=== PATIENT | male | born 1960 | race Caucasian/White ===

== ENCOUNTER 2024-03-18 18:02 | Inpatient (IN) | payer OTHER, SELFPAY ==
[2024-03-18] VITALS (9 sets, daily range): BP systolic 74–144; BP diastolic 44–70; BMI 39.0; BMI 37.7
[2024-03-18 16:33] LABS: Glucose - Point of Care 249 mg/dl (70-99)
[2024-03-18 17:06] LABS: % Basophils 0.2 % (0-2); % Eosinophils 1.1 % (0-6); % Immature Granulocytes 0.4 % (0-0.5); % Lymphocytes 1.4 % (20.5-51.1); % Monocytes 4.3 % (1.7-9.3); % Neutrophils 92.6 % (42.2-75.2); Absolute Eosinophils 0.1 10^3/uL (0-0.7); Absolute Lymphocytes 0.1 10^3/uL (1.2-3.4); Absolute Monocytes 0.4 10^3/uL (0.1-0.6); Absolute Neutrophils 9.1 10^3/uL (1.4-6.5); Hematocrit 47.6 % (39.0-52.0); Hemoglobin 16.1 g/dL (13.0-18.0); Mean Corp Hgb Conc. 33.8 g/dL (33.0-37.0); Mean Corpuscular Hgb 35.2 pg (27.0-31.0); Mean Corpuscular Volume 103.9 fL (80.0-94.0); Mean Platelet Volume 10.4 fL (7.4-10.4); Nucleated Red Blood Cells % 0 % (-); Platelet Count 181 10^3/uL (130-400); Red Blood Cell Count 4.58 10^6/uL (4.70-6.10); White Blood Cell Count 9.8 10^3/uL (4.8-10.8)
[2024-03-18] MEDS: ZOFRAN 4 MG IV (17:13)
[2024-03-18] MEDS: PROTONIX IV 40 MG IV (17:13)
--- NOTE | 2024-03-18 17:13 | ED.GENMED ---
History of Present Illness
General
Chief Complaint: Weakness
Source: patient and ambulance crew
Exam Limitations: none
Time Seen by Provider: 03/18/24 16:45
Nursing documentation reviewed up to this point in time: agreed with
History of Present Illness
History of Present Illness:
65-year-old diabetic from home nausea vomiting diarrhea since this morning greater than 10 episodes feels weak, called 911 found to be hypotensive given Zofran and IV fluids Accu-Chek in the mid 200 range, no headache, does feel dizzy, has mild
diffuse abdominal tenderness, no blood in stool or vomit,
Phy Exam
Physical Exam
Physical Exam:
Physical Exam
General: 63 male looks uncomfortable but not
Neck: Dry lips
Heart: s1/s2 regular rate and rhythm, no murmur. equal radial pulses.
Lungs: no acute respiratory distress. clear bilaterally
Abdomen: Mild diffuse tenderness no guarding or
Neuro: alert and oriented. no focal neurological deficits
Skin: no rash
Psychiatric: cooperative
Extremities: no edema.
Course
Orders/Labs/Results
Orders:
Orders
03/18/24 16:27
EKG [Electrocardiogram (*1)] Urgent
Reason for Study: Tachycardia
EKG- Treatment ONCE
03/18/24 16:40
CMP [Comprehensive Metabolic Panel] Urgent
Complete Blood Count/With Diff Urgent
03/18/24 16:49
Ondansetron Injectable [Zofran] 4 mg IV NOW STA
Pantoprazole [Protonix IV] 40 mg IV NOW STA
CR Chest Portable - 1 View Urgent
Comment:
Reason For Exam: vomiting
Reason Study Needs to be Portable: Unable to Transport
03/18/24 16:51
Type+Screen Urgent
03/18/24 17:07
Norovirus by PCR Urgent
ANITRA Source: Feces/Stool
Specimen Description:
Abnormal Lab Results
03/18/24 03/18/24
16:32 16:40
RBC 4.58 L 10^6/uL
(4.70-6.10)
MCV 103.9 H fL
(80.0-94.0)
MCH 35.2 H pg
(27.0-31.0)
Absolute Neuts (auto) 9.1 H 10^3/uL
(1.4-6.5)
Absolute Lymphs (auto) 0.1 L 10^3/uL
(1.2-3.4)
Neutrophils % 92.6 H %
(42.2-75.2)
Lymphocytes % 1.4 L %
(20.5-51.1)
BUN 24 H mg/dl
(9-20)
Glucose 245 H mg/dl
(70-99)
Calcium 7.4 L mg/dl
(8.4-10.2)
Total Protein 5.6 L g/dl
(6.3-8.2)
Albumin 3.2 L g/dl
(3.5-5.0)
POC Glucose 249 H mg/dl
(70-99)
03/18/24 16:40
03/18/24 16:40
Vital Signs
Initial and Last Documented VS:
Initial Vital Signs
Temp Pulse Resp BP
98.7 F 116 11 110/66
03/18/24 16:27 03/18/24 16:27 03/18/24 16:27 03/18/24 16:27
Last Documented Vital Signs
Temp Pulse Resp BP
98.7 F 116 11 110/66
03/18/24 16:27 03/18/24 16:27 03/18/24 16:27 03/18/24 16:27
MDM/Problems Addressed
Differential Diagnosis Includes:
Colitis diverticulitis DKA norovirus dehydration
MDM/Problems Addressed:
Nausea vomiting diarrhea
Chronic conditions affecting care: DM
Acute Exacerbation and/or Progression of Chronic Illness: DM
*EKG
Interpreted by ED Provider?: Yes
Interpretation: abnormal
Comparison EKG: no comparison EKG present
Rate: tachycardiac
Rhythm: sinus
Ischemia: non-specific ST changes
*Manager Account Management Interpretation
Rate: tachycardiac
Interpretation: abnormal
Heart Rate: 117
Rhythm: sinus
*Critical Care Note
Total Time (30-74mins, 75-104mins- exclusive of procedures): Not Applicable
ED Attending Note
-
Portions of this chart may have been created with voice recognition software.� Occasional wrong word or��sound alike� substitutions may have occurred due to the inherent limitations of voice recognition software.
Discharge Plan
Departure
Patient with high blood pressure during this ER visit?: No
Referrals:
Harpreet Kelsey MD [Family Provider] -
Interventions
Interventions:
*Risk Screen - Suicide Last Done: 03/18/24 16:27
*General Assessment Last Done: 03/18/24 16:27
*Neglect/Abuse Screening Last Done: 03/18/24 16:27
Discharge Date and Time
Print Language: IVORIAN
[2024-03-18 17:21] LABS: ALT (SGPT) 21 U/L (0-50); AST (SGOT) 20 U/L (17-59); Albumin 3.2 g/dl (3.5-5.0); Alkaline Phosphatase 63 U/L (38-126); Blood Urea Nitrogen 24 mg/dl (9-20); Calcium 7.4 mg/dl (8.4-10.2); Carbon Dioxide 23 mmol/L (22-30); Chloride 107 mmol/L (98-107); Estimated Creatinine Clearance 112 ml/min; Glucose 245 mg/dl (70-99); Potassium 4.1 mmol/L (3.5-5.1); Sodium 138 mmol/L (135-145); Total Bilirubin 1.1 mg/dl (0.2-1.3); Total Protein 5.6 g/dl (6.3-8.2); eGFR > 60.00
--- NOTE | 2024-03-18 17:46 | HPS.HSE ---
Family Physician
-
Family Physician: Harpreet Kelsey
Chief Complaint
-
acute N/V/D
History of Present Illness
HPI
65M diabetic from home seen at ER: 911 called and [facility]
- acute onset of nausea vomiting diarrhea since this morning greater than 10 episodes feels weak
- called 911 found to be hypotensive given Zofran and IV fluids
- Accu-Chek in the mid 200 range
ROS:
- feel dizzy
- mild diffuse abdominal tenderness
- no blood in stool or vomit,
Medical History
Past Medical History
Past Medical History: Reports NIDDM
Past Surgical History: Reports None
Social History
Tobacco: Non-smoker
Alcohol: None
Drug: None
Family History
Family History: Not pertinent
Allergies / Home Medications
Allergies reflects when Allergies were last updated in [facility].
Home Medications with original date entered in [facility]
Allergy/Medication List:
Allergies
Allergy/AdvReac Type Severity Reaction Status Date / Time
nut - unspecified Allergy Severe Anaphylaxis Verified 03/18/24 16:38
dapagliflozin [From [facility]] Allergy Unknown Verified 03/18/24 16:38
Penicillins Allergy Unknown Verified 03/18/24 16:38
If medication reconciliation has not been performed, why?: Medication List N/A
Review of Systems
-
Constitutional: Reports No Symptoms
EENT: Reports No Symptoms
Respiratory: Reports No Symptoms
Cardiac: Reports No Symptoms
Abdomen/GI: Reports Abdominal Pain, Nausea, Vomiting and Diarrhea
: Reports No Symptoms
Musculoskeletal: Reports No Symptoms
Skin: Reports No Symptoms
Neurological: Reports No Symptoms
Endocrine: Reports No Symptoms
Hematologic/Lymphatic: Reports No Symptoms
Psych: Reports No Symptoms
Physical Exam
Vital Signs
Vital Signs
Temp Pulse Resp BP
98.7 F 116 11 110/66
03/18/24 16:27 03/18/24 16:27 03/18/24 16:27 03/18/24 16:27
Physical Exam
General: Well Nourished, Conversant, Appears in Distress and Obese (morbid obesity )
HEENT: No Moist mucous membranes (dry OM )
Respiratory: Clear
Cardiac: S1/S2 and Regular Rhythm
Breast: Deferred by me
GI: Soft, Non Tender, Non Distended and Normal Bowel Sounds
Genito-urinary: Deferred by me
Musculoskeletal: No Edema
Skin: Warm
Neuro: AO x 3
Psych: Calm; No Agitated
Laboratory Results
-
03/18/24 16:40
03/18/24 16:40
Laboratory Results
Total Bilirubin 1.1 mg/dl (0.2-1.3) 03/18/24 16:40
AST 20 U/L (17-59) 03/18/24 16:40
ALT 21 U/L (0-50) 03/18/24 16:40
Alkaline Phosphatase 63 U/L (38-126) 03/18/24 16:40
Data Reviewed
-
Lab Data: Labs Reviewed by me
Impression/Plan
-
Vital Signs
Temp Pulse Resp BP
98.7 F 116 11 110/66
03/18/24 16:27 03/18/24 16:27 03/18/24 16:27 03/18/24 16:27
Data
Laboratory Tests
03/18/24 03/18/24
16:32 16:40
WBC 9.8
Hgb 16.1
Plt Count 181
BUN 24 H
Creatinine 1.0
Glucose 245 H
Calcium 7.4 L
Albumin 3.2 L
POC Glucose 249 H
EKG report
SINUS TACHYCARDIA
INFERIOR INFARCT , AGE UNDETERMINED
ABNORMAL ECG
WHEN COMPARED WITH ECG OF 26-DEC-1993 07:42,
VENT. RATE HAS INCREASED BY 48 BPM
INFERIOR INFARCT IS NOW PRESENT
NO PRIOR hospitalist admission:
ASSESSMENT & PLAN
Pending Rx reconciliation
Acute GE with hypotension DDX: Noro virus
Associated with moderately hypovolemia due to GI loss
- supportive care with IVF , anti emetics
- check Noro virus stool PCR
- fall precaution
Inadequate hyperglycemic control
HX DM
check BHB
- Pending Rx reconciliation
- Hold any OHG agents
- add ISS low
Hypocalcemia due to GI loss
Corrected Ca 8 for Alb 3.2
- IV Calcium Gluconate 1 gm
- f/u Ca in AM
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
DVT Px: SCD
Code: Full code
IP TLM
[2024-03-18] MEDS: CALCIUM GLUCONATE 1000 MG IV (18:22)
[2024-03-18 18:49] LABS: B-Hydroxybutyrate 0.64 mmol/L (0.02-0.27)
[2024-03-18] MEDS: NSS 1000 IV (21:20)
[2024-03-18 22:21] LABS: Glucose - Point of Care 291 mg/dl (70-99)
[2024-03-18] MEDS: NSS 500 IV (23:04)
[2024-03-19] VITALS (10 sets, daily range): BP systolic 86–125; BP diastolic 52–74; PULSE 79–105
--- NOTE | 2024-03-19 00:55 | PTCARENOTE ---
Addendum entered by Negrita Tompkins RN 03/19/24 05:03:
bladder scan for 78ml
Addendum entered by Negrita Tompkins RN 03/19/24 04:15:
Pt received another NS 250ml Bolus and Midodrine for BP 86/52. Rechecked BP 79/47. MARKETING RESEARCH ANALYST made aware
Addendum entered by Negrita Tompkins RN 03/19/24 00:59:
BP 75/47 HR 109. MARKETING RESEARCH ANALYST made aware. Bolus NS 500ml given. BP improved to 91/54
Original Note:
Pt admitted to room 2131. Pt AAOx3, weak and drowsy. Was able to ambulate from stretcher to the bed. Oriented to room, call horta in reach.
--- NOTE | 2024-03-19 01:17 | W.PN.UPDATE ---
Update Note
Progress Note Update
RN notified [employer], BP 75/47. Map 56. He's on NS @100. Received 1L in ER. Will order 500 CC NS bolus
one hour later BP 91/54 MAP 66.
BP 86/52 map 63, Will order Midodrine 5mg PO x1, IV bolus 250 NS to be given now
Patient is sleepy but easily arousable.
88/55 MAP 66 HR 95
BUN 38 Creat 2.1
bladder scan 70CC per RN. Patient seen and evaluated. stated voided limited amount about 100 CC
reports mild Shortness of breath, denies any chest pain, lungs clear to auscultate; RRR,
Denies any bladder pressure or discomfort or urge to urinate
will order Renal/Bladder US, UA, Urine NA, Urine Creat, May consider outside collector
NSS IV bolus 500 CC now.
[2024-03-19] MEDS: NSS 250 IV (01:31)
[2024-03-19] MEDS: ProAmatine 5 MG PO (01:32)
[2024-03-19] MEDS: NSS 1000 IV ×3 (01:51→20:57)
[2024-03-19 05:47] LABS: Hematocrit 42.9 % (39.0-52.0); Hemoglobin 14.6 g/dL (13.0-18.0); Mean Corpuscular Hgb 35.4 pg (27.0-31.0); Mean Corpuscular Volume 103.9 fL (80.0-94.0); Mean Platelet Volume 10.9 fL (7.4-10.4); Platelet Count 199 10^3/uL (130-400); Red Blood Cell Count 4.13 10^6/uL (4.70-6.10); Red Cell Dist. Width 13.3 % (11.5-14.5); White Blood Cell Count 9.1 10^3/uL (4.8-10.8)
[2024-03-19 06:17] LABS: ALT (SGPT) 22 U/L (0-50); AST (SGOT) 25 U/L (17-59); Albumin 3.1 g/dl (3.5-5.0); Alkaline Phosphatase 49 U/L (38-126); Blood Urea Nitrogen 38 mg/dl (9-20); Calcium 7.8 mg/dl (8.4-10.2); Carbon Dioxide 23 mmol/L (22-30); Chloride 105 mmol/L (98-107); Estimated Creatinine Clearance 52 ml/min; Glucose 208 mg/dl (70-99); Potassium 4.8 mmol/L (3.5-5.1); Sodium 136 mmol/L (135-145); Total Bilirubin 0.6 mg/dl (0.2-1.3); Total Protein 5.6 g/dl (6.3-8.2); eGFR 34.72
[2024-03-19 07:11] LABS: Glucose - Point of Care 168 mg/dl (70-99)
[2024-03-19] MEDS: NSS 500 IV (08:11)
[2024-03-19] MEDS: NOVOLOG FLEXPEN-LOW RESISTANCE 1 UNITS SC ×2 (08:19→17:18)
[2024-03-19 09:30] LABS: Urine Sodium 75 mmol/L (30-90)
[2024-03-19 10:35] LABS: Glycohemoglobin (HgbA1c) 8.3 % (4.0-5.6)
--- NOTE | 2024-03-19 11:12 | W.PN.HOSP.TC ---
Today's Communication/Plan
-
Assessment / Plan
Assessment / Plan
Acute gastroenteritis
-Likely viral. Stool cultures for C. difficile and norovirus obtained
-Supportive care for now IV fluids antiemetics antipyretics
EMILY
IVF
Avoid nephrotoxins and hypotension
Monitor UOP
Bladder scan
RBUS
Urine studies )Cory/Ucr/Upro
Avoid nephrotoxins and hypotension
Type 2 diabetes on metformin glimepiride and Trulicity
-Accu-Chek sliding scale goal blood glucose 1 40-1 80 carb controlled diet
-Hold metformin while inpatient
PE history
Continue Eliquis BID
Hypertension
Continue losartan
Psoriatic arthritis
Continue methotrexate 25 mg every Wednesday
Continue prednisone 5 mg twice a day
Macrocytosis
Outpatient b12/folate,
-On methotrexate and likely related
-On folate
Hyperlipidemia
Continue simvastatin
Anticipated Discharge: Today
Subjective/Interval History
-
Date of Service: March 19, 2024
seen and examined
no new complaints
no aucte ovenright eventgs
on the way down to ultrasound
per nurse poor uop
he does not have an appetite
on eliquis for pe in 2008, no further vte events in the past, still on eliquis
Objective Data
-
Labs:
Laboratory Results
03/19/24
04:44
WBC 9.1
Hgb 14.6
Hct 42.9
Plt Count 199
Sodium 136
Potassium 4.8
Chloride 105
Carbon Dioxide 23
BUN 38 H
Creatinine 2.1 H
Glucose 208 H
Calcium 7.8 L
Total Bilirubin 0.6
AST 25
ALT 22
Alkaline Phosphatase 49
Vital Signs:
Vital Signs
Temp Pulse Resp BP Pulse Ox
97.5 F 88 17 95/58 96
03/19/24 07:47 03/19/24 07:47 03/19/24 07:47 03/19/24 07:47 03/19/24 07:47
I&O
03/18/24 03/19/24 03/20/24
06:59 06:59 06:59
Intake Total 2780 / 2780
Output Total 110 / 110
Balance 2670 / 2670
Physical Exam
-
General: No Apparent Distress and Obese
HEENT: Normocephalic and Atraumatic
Respiratory: Clear to Auscultation
Cardiac: Regular Rhythm and S1/S2
GI: Soft, Nontender, Normal Bowel Sounds and Distended
Skin: Warm and Other (b/l chronic venostasis changes)
Neuro: Awake, Alert, Oriented and AO x 3
Psych: Calm
[2024-03-19 11:24] LABS: Glucose - Point of Care 136 mg/dl (70-99)
[2024-03-19] MEDS: NOVOLOG FLEXPEN-LOW RESISTANCE SC (11:29)
[2024-03-19] MEDS: TYLENOL 1000 MG PO ×2 (12:17→20:59)
--- NOTE | 2024-03-19 12:38 | CM ---
Patient seen at bedside. Patient states that he rents room on the second floor and he has no DME. Patient PCP is Dr. Kelsey and he uses the [facility] in [facility]. Patient stated that he is independent and does not anticipate any needs at
discharge. CM will provide information re living will/POA at patient request. Patient sleepy but indicated that he was feeling better. CM will continue to follow for discharge planning needs.
Plan; home with no needs.
[2024-03-19 14:32] LABS: Urine Albumin Trace (Neg - Trace); Urine Bilirubin 1+ (Negative); Urine Character Clear (Clear); Urine Color Yellow; Urine Glucose 1+ (Negative); Urine Ketone Negative (Negative); Urine Leukocyte Negative (Negative); Urine Nitrite Negative (Negative); Urine Occult Blood Negative (Negative); Urine Specific Gravity 1.025 (<1.030); Urine Urobilinogen Negative (Neg - 1+)
[2024-03-19 16:20] LABS: Glucose - Point of Care 156 mg/dl (70-99)
[2024-03-19] MEDS: FOLVITE 1 MG PO (17:18)
[2024-03-19] MEDS: DELTASONE 5 MG PO (20:57)
[2024-03-19] MEDS: ELIQUIS 5 MG PO (20:57)
[2024-03-19 21:48] LABS: Glucose - Point of Care 95 mg/dl (70-99)
[2024-03-20] VITALS (7 sets, daily range): BP systolic 95–129; BP diastolic 66–76; PULSE 76–95; BMI 38.7
[2024-03-20] MEDS: TYLENOL 1000 MG PO ×3 (03:30→20:00)
[2024-03-20] MEDS: NSS 1000 IV ×3 (06:03→21:27)
[2024-03-20 07:34] LABS: Glucose - Point of Care 143 mg/dl (70-99)
[2024-03-20] MEDS: NOVOLOG FLEXPEN-LOW RESISTANCE SC ×2 (07:43→16:40)
[2024-03-20] MEDS: DELTASONE 5 MG PO ×2 (08:02→20:00)
[2024-03-20] MEDS: ELIQUIS 5 MG PO ×2 (08:02→20:00)
[2024-03-20] MEDS: VITAMIN D3 (cholecalciferol) 25 MCG PO (08:02)
[2024-03-20 08:49] LABS: Hematocrit 40.8 % (39.0-52.0); Hemoglobin 13.7 g/dL (13.0-18.0); Mean Corp Hgb Conc. 33.6 g/dL (33.0-37.0); Mean Corpuscular Hgb 35.9 pg (27.0-31.0); Mean Corpuscular Volume 106.8 fL (80.0-94.0); Mean Platelet Volume 10.6 fL (7.4-10.4); Platelet Count 144 10^3/uL (130-400); Red Blood Cell Count 3.82 10^6/uL (4.70-6.10); Red Cell Dist. Width 13.2 % (11.5-14.5); White Blood Cell Count 4.3 10^3/uL (4.8-10.8)
[2024-03-20 09:37] LABS: Urine Protein 15 mg/dl (0-12); Urine Sodium 129 mmol/L (30-90)
[2024-03-20 10:21] LABS: Blood Urea Nitrogen 21 mg/dl (9-20); Calcium 7.8 mg/dl (8.4-10.2); Carbon Dioxide 24 mmol/L (22-30); Chloride 108 mmol/L (98-107); Estimated Creatinine Clearance 123 ml/min; Glucose 112 mg/dl (70-99); Potassium 4.6 mmol/L (3.5-5.1); Sodium 136 mmol/L (135-145); eGFR > 60.00
--- NOTE | 2024-03-20 10:45 | CM ---
Reviewed the chart notes. Per nursing, patient is weak and using a walker with ambulation at supervision level. CM continues to be available to patient/family and is monitoring medical plan for needs at discharge.
Plan: Discharge to home when medically stable. No needs anticipated at this time.
[2024-03-20 11:36] LABS: Glucose - Point of Care 162 mg/dl (70-99)
[2024-03-20] MEDS: NOVOLOG FLEXPEN-LOW RESISTANCE 1 UNITS SC (12:28)
--- NOTE | 2024-03-20 12:45 | W.PN.HOSP.TC ---
Today's Communication/Plan
-
Patient to be evaluated by PT/OT today. If he can tolerate regular diet and ambulate without issue, he should be safe to be discharged
Assessment / Plan
Assessment / Plan
Assessment:
65y M with a pmhx of NIDDM came to the ED on 03/18/2024 due to acute onset of nausea, vomiting and diarrhea. Patient was found to be hypotensive and given Zofran and fluids. Patient was found to be positive for Norovirus and started on supportive
care with IVF and anti-emetics. Patient's hyperglycemia has been controlled with insulin sliding scale as his oral agents were held. He is currently still feeling weak but his nausea, vomiting, and diarrhea have seemed to resolve for now.
Acute gastroenteritis
-Positive for Norovirus
-Positive for C.Diff antigen, not toxin
-Continue Supportive Care with IV fluids and Antiemetics as needed
-Changed to Regular diet to see if he can tolerate solid foods
-Orthostatic Vitals due to his dizziness
-113/68 while standing, 95/67 supine, 108/68 sitting-> Improved from before
EMILY
-Resolved (Creatinine 0.9)
-On IVF
-Urine Studies show Urine Sodium 129, Urine Creatinine 68
-FENA 5.7 %
-Urine studies )Cory/Ucr/Upro
-Avoid nephrotoxins and hypotension
Non Insulin Dependent Type 2 diabetes
-Management with Insulin sliding scale
-Resume home therapy with metformin, glimepiride and Trulicity upon discharge
PE history
Continue Eliquis BID
Hypertension
Continue losartan
Psoriatic arthritis
Continue methotrexate 25 mg every Wednesday
Continue prednisone 5 mg twice a day
Macrocytosis
Outpatient b12/folate,
-On methotrexate and likely related
-On folate
Hyperlipidemia
Continue simvastatin
Full Code
DVT Prophylaxis: Eliquis
Anticipated Discharge: Within 24 hours
Subjective/Interval History
-
Date of Service: March 20, 2024
Patient says that he has been feeling better but still feels some weakness. He says he has not had a bowel movement for a day but he does not feel nausea or vomiting. He wanted to try solid foods today as he thinks he might be able to handle them
today. He did complain of some constipation and feeling of fullness.
Objective Data
-
Labs:
Laboratory Results
03/20/24
07:35
WBC 4.3 L
Hgb 13.7
Hct 40.8
Plt Count 144 D
Sodium 136
Potassium 4.6
Chloride 108 H
Carbon Dioxide 24
BUN 21 H
Creatinine 0.9
Glucose 112 H
Calcium 7.8 L
Vital Signs:
Vital Signs
Temp Pulse Resp BP Pulse Ox
98 F 84 17 125/73 95
03/20/24 11:06 03/20/24 07:30 03/20/24 07:30 03/20/24 07:30 03/20/24 10:56
I&O
03/19/24 03/20/24 03/21/24
06:59 06:59 06:59
Intake Total 2780 / 2780 2800 / 2800
Output Total 110 / 110 2350 / 2350
Balance 2670 / 2670 450 / 450
Review of Systems
-
History Source: Patient
Constitutional: Reports Fatigue and Weakness; Denies Fever, Night Sweats or Chills
EENT: Reports No Symptoms Reported
Respiratory: Denies Cough, Hemoptysis, Trouble Breathing or Wheezing
Cardiac: Denies Chest Pain, Diaphoresis, Palpitations or Syncope
Abdomen/GI: Reports Constipated; Denies Abdominal Pain, Nausea or Vomiting
Genitourinary: Reports No Symptoms
Musculoskeletal: Reports No Symptoms
Skin: Reports No Symptoms
Neuro: Reports No Symptoms
Endocrine: Reports No Symptoms
Hematologic / Lymphatic: Reports No Symptoms
Allergy / Immunology: Reports No Symptoms
Physical Exam
-
General: Well Developed, Well Nourished, No Apparent Distress and Comfortable
HEENT: Normocephalic and Atraumatic
Respiratory: Clear to Auscultation and Non Labored Respirations
Cardiac: Regular Rhythm and S1/S2
GI: Soft, Nontender, Normal Bowel Sounds and Distended
Musculoskeletal: No Clubbing, No Cyanosis and No Edema
Skin: Warm
Neuro: Awake, Alert, Oriented, AO x 3 and No Motor Deficits
Psych: Calm
Data Reviewed
-
Labs: Labs Reviewed by me, Discussed with Physician and Discussed with Patient
[2024-03-20] MEDS: ZOFRAN 4 MG PO (14:25)
--- NOTE | 2024-03-20 15:16 | PTCARENOTE ---
Patient c/o nausea, bout of diarrhea after trying regular diet for lunch. MD made aware, PRN PO zofran ordered per MD and resident and administered by this RN. Patient c/o generalized weakness throughout shift, OOB to chair and bathroom with standby
assist and RW. Orthos negative. O2 sat stable on RA.
[2024-03-20 16:37] LABS: Glucose - Point of Care 146 mg/dl (70-99)
[2024-03-20] MEDS: FOLVITE 1 MG PO (17:02)
[2024-03-20 21:35] LABS: Glucose - Point of Care 140 mg/dl (70-99)
[2024-03-21] VITALS (7 sets, daily range): BP systolic 123–146; BP diastolic 71–89; PULSE 73–89; BMI 39.1
[2024-03-21] MEDS: TYLENOL 1000 MG PO ×2 (02:30→11:58)
[2024-03-21] MEDS: NSS 1000 IV (05:48)
--- NOTE | 2024-03-21 08:07 | PN.CDI ---
CDI
- -
CDI:
Physician Documentation Request
Admit Date: 03/18/24 18:02
Dear Doctor Onur,
Clinical Indicators:
Patient admitted with acute viral gastroenteritis from norovirus.
03/18Hypotensive on EMS arrival: 65/48
03/20 PN, 'EMILY...FENA 5.7 %'
Urine Sodium
03/20/24
08:11
Urine Sodium 129 H
Cr/GFR trend:
03/18/24 03/19/24 03/20/24
16:40 04:44 07:35
Creatinine 1.0 2.1 H 0.9
eGFR > 60.00 34.72 > 60.00
Please clarify which of the following accurately represents the patient's renal status:
EMILY with suspected ATN
Pre renal EMILY only
Other, please specify
Criteria for EMILY*
1 Increase in serum creatinine by > or = to 0.3 mg/dL (> or = to 26.5 micromol/L) within 48 hours, OR
2 Increase in serum creatinine to > or = to 1.5 times baseline, which is known or presumed to have occurred within 7 days, OR
3 Urine volume < 0.5 nL/kg/hour for six hours
Use of terms such as suspected, likely, concern for, or probable (associated with a specific diagnosis that is being evaluated, monitored, or treated as if it exists) are acceptable and can be coded in the inpatient setting, when documented at the
time of discharge.
Thank you,
Vivienne Junior RN BSN
CDI Specialist
available via tiger text
Please use your independent medical judgment in providing your response.
*Source: Kidney Disease: Improving Global Outcomes (KDIGO) 2012
[2024-03-21] MEDS: ELIQUIS 5 MG PO ×2 (08:10→20:38)
[2024-03-21] MEDS: VITAMIN D3 (cholecalciferol) 25 MCG PO (08:10)
[2024-03-21] MEDS: DELTASONE 5 MG PO ×2 (08:10→20:38)
[2024-03-21 08:16] LABS: Glucose - Point of Care 127 mg/dl (70-99)
--- NOTE | 2024-03-21 08:18 | PN.CDI ---
CDI
- -
CDI:
Physician Documentation Request
Admit Date: 03/18/24 18:02
Dear Doctor Onur,
Clinical Indicators:
Patient admitted with acute viral gastroenteritis from norovirus.
03/18 EMS report, 'unable to get reportable BP, patient states he feels dizzy, weak...during descent, patient became increasingly pale...BP remains low...pressure bagging fluids into patient'; Initial recorded BP: 65/48 MAP 53
03/19 H & P, 'Acute GE with hypotension...Associated with moderately hypovolemia due to GI loss'
NSS bolus x 2
03/18 Midodrine 5 mg po x 1.
BP trend:
03/18/24
22:47 03/18/24
23:26 03/19/24
01:10
Blood pressure 74/49 77/44 86/52
03/19/24
02:44 03/19/24
03:55 03/19/24
16:07
Blood pressure 87/56 86/55 87/59
Please clarify which of the following is the most likely etiology of the above symptoms and treatment rendered:
Hypovolemic shock
Hypotension only
Other
Use of terms such as suspected, likely, concern for, or probable (associated with a specific diagnosis that is being evaluated, monitored, or treated as if it exists) are acceptable and can be coded in the inpatient setting, when documented at the
time of discharge.
Thank you,
Vivienne Junior RN BSN
CDI Specialist
available via tiger text
Please use your independent medical judgment in providing your response.
[2024-03-21] MEDS: NOVOLOG FLEXPEN-LOW RESISTANCE SC ×2 (08:21→17:28)
[2024-03-21 09:17] LABS: Hematocrit 38.7 % (39.0-52.0); Hemoglobin 13.3 g/dL (13.0-18.0); Mean Corp Hgb Conc. 34.4 g/dL (33.0-37.0); Mean Corpuscular Hgb 35.5 pg (27.0-31.0); Mean Corpuscular Volume 103.2 fL (80.0-94.0); Mean Platelet Volume 10.1 fL (7.4-10.4); Platelet Count 142 10^3/uL (130-400); Red Blood Cell Count 3.75 10^6/uL (4.70-6.10); Red Cell Dist. Width 13.2 % (11.5-14.5); White Blood Cell Count 4.7 10^3/uL (4.8-10.8)
--- NOTE | 2024-03-21 09:42 | W.PN.HOSP.TC ---
Addendum entered and electronically signed by Wilfredo Davis DO 03/21/24 13:05:
CDI:
-Hypotension only. Did not require vasopressor course, responded to IV fluids
-Prerenal EMILY. Rapid improvement in creatinine not consistent with ATN. Received IV fluids, urine sodium likely affected by sodium chloride load to kidney
Original Note:
Today's Communication/Plan
-
Continue giving supportive therapy as he still feels weak. Continue management of sugars.
Assessment / Plan
Assessment / Plan
Assessment:
65y M with a pmhx of NIDDM came to the ED on 03/18/2024 due to acute onset of nausea, vomiting and diarrhea. Patient was found to be hypotensive and given Zofran and fluids. Patient was found to be positive for Norovirus and started on supportive
care with IVF and anti-emetics. Patient's hyperglycemia has been controlled with insulin sliding scale as his oral agents were held. He is currently still feeling weak but his nausea, vomiting, and diarrhea have seemed to resolve for now.
Acute gastroenteritis
-Patient was hypotensive upon admission which was most probably secondary to viral gastroenteritis related diarrhea
-Positive for Norovirus
-Positive for C.Diff antigen, not toxin
-Continue Supportive Care with IV fluids and Antiemetics as needed
-Changed to Regular diet to see if he can tolerate solid food
-Orthostatic Vitals due to his dizziness
-113/68 while standing, 95/67 supine, 108/68 sitting-> Improved from before
-IVF discontinued as patient can tolerate PO fluids
-Continue supportive therapy
#EMILY with suspected ATN
-Resolved (Creatinine 0.9)
-On IVF
-Urine Studies show Urine Sodium 129, Urine Creatinine 68
-FENA 5.7 %
-Urine studies )Cory/Ucr/Upro
-Avoid nephrotoxins and hypotension
Non Insulin Dependent Type 2 diabetes
-Management with Insulin sliding scale
-Resume home therapy with metformin, glimepiride and Trulicity upon discharge
PE history
Continue Eliquis BID
Hypertension
Holding Losartan
Psoriatic arthritis
Continue methotrexate 25 mg every Wednesday
Continue prednisone 5 mg twice a day
Macrocytosis
Outpatient b12/folate,
-On methotrexate and likely related
-On folate
Hyperlipidemia
Continue simvastatin
Full Code
DVT Prophylaxis: Eliquis
Anticipated Discharge: Within 24 hours
Subjective/Interval History
-
Date of Service: March 21, 2024
Patient says that he still feels weak and has some increased pressure in his abdomen. He has been able to tolerate a regular diet without having any nausea or vomiting.
Objective Data
-
Labs:
Laboratory Results
03/21/24
09:00
WBC 4.7 L
Hgb 13.3
Hct 38.7 L
Plt Count 142
Sodium Pending
Potassium Pending
Chloride Pending
Carbon Dioxide Pending
BUN Pending
Creatinine Pending
Glucose Pending
Calcium Pending
Vital Signs:
Vital Signs
Temp Pulse Resp BP Pulse Ox
98.1 F 75 18 133/85 93
03/21/24 07:10 03/21/24 07:10 03/21/24 07:10 03/21/24 07:10 03/21/24 09:28
I&O
03/20/24 03/21/24 03/22/24
06:59 06:59 06:59
Intake Total 2800 / 2800 5320 / 5320
Output Total 2350 / 2350 1300 / 1300
Balance 450 / 450 4020 / 4020
Review of Systems
-
History Source: Patient
Constitutional: Reports Fatigue and Weakness; Denies Fever or No Appetite
EENT: Reports No Symptoms Reported
Respiratory: Denies Cough or Trouble Breathing
Cardiac: Denies Chest Pain, Diaphoresis, Palpitations or Syncope
Abdomen/GI: Reports Abdominal Pain (pressure rather than sharp pain in lower right quadrant); Denies Nausea, Vomiting or Diarrhea
Genitourinary: Reports No Symptoms
Musculoskeletal: Reports No Symptoms
Skin: Reports No Symptoms
Neuro: Reports No Symptoms
Endocrine: Reports No Symptoms
Hematologic / Lymphatic: Reports No Symptoms
Allergy / Immunology: Reports No Symptoms
Psych: Reports Anxious
Physical Exam
-
General: Well Developed, Well Nourished, No Apparent Distress and Comfortable
HEENT: Normocephalic and Atraumatic
Respiratory: Clear to Auscultation and Non Labored Respirations
Cardiac: Regular Rhythm and S1/S2
GI: Soft, Normal Bowel Sounds, Tender (some discomfort lower right side upon palpation) and Distended
Musculoskeletal: No Clubbing, No Cyanosis and No Edema
Skin: Warm
Neuro: Awake, Alert, Oriented and AO x 3
Psych: Calm and Anxious
Data Reviewed
-
Labs: Labs Reviewed by me, Discussed with Physician, Discussed with Nurse and Discussed with Patient
[2024-03-21 10:25] LABS: Blood Urea Nitrogen 17 mg/dl (9-20); Calcium 8.6 mg/dl (8.4-10.2); Carbon Dioxide 25 mmol/L (22-30); Chloride 108 mmol/L (98-107); Estimated Creatinine Clearance > 125 ml/min; Glucose 149 mg/dl (70-99); Potassium 4.5 mmol/L (3.5-5.1); Sodium 138 mmol/L (135-145); eGFR > 60.00
[2024-03-21 12:02] LABS: Glucose - Point of Care 171 mg/dl (70-99)
[2024-03-21] MEDS: NOVOLOG FLEXPEN-LOW RESISTANCE 1 UNITS SC (12:02)
[2024-03-21] MEDS: FIRVANQ 125 MG PO ×3 (14:42→23:22)
--- NOTE | 2024-03-21 15:21 | CM ---
Reviewed the chart notes and spoke with the patient at the bedside. Patient anticipates being discharged to home when medically stable. CM continues to be available to patient/family and is monitoring medical plan for needs at discharge.
Plan: Discharge to home when medically stable.
[2024-03-21] MEDS: FOLVITE 1 MG PO (17:20)
[2024-03-21 17:26] LABS: Glucose - Point of Care 122 mg/dl (70-99)
[2024-03-21 21:32] LABS: Glucose - Point of Care 152 mg/dl (70-99)
[2024-03-22] MEDS: TYLENOL 1000 MG PO ×4 (01:24→22:22)
[2024-03-22] MEDS: FIRVANQ 125 MG PO ×4 (05:52→23:27)
[2024-03-22 06:00] VITALS: BMI 38.7
[2024-03-22 06:04] LABS: Hematocrit 36.7 % (39.0-52.0); Hemoglobin 12.8 g/dL (13.0-18.0); Mean Corp Hgb Conc. 34.9 g/dL (33.0-37.0); Mean Corpuscular Hgb 35.9 pg (27.0-31.0); Mean Corpuscular Volume 102.8 fL (80.0-94.0); Mean Platelet Volume 10.7 fL (7.4-10.4); Platelet Count 155 10^3/uL (130-400); Red Blood Cell Count 3.57 10^6/uL (4.70-6.10); Red Cell Dist. Width 13.1 % (11.5-14.5)
[2024-03-22 06:25] LABS: Blood Urea Nitrogen 21 mg/dl (9-20); Carbon Dioxide 28 mmol/L (22-30); Chloride 104 mmol/L (98-107); Estimated Creatinine Clearance 124 ml/min; Glucose 164 mg/dl (70-99); Potassium 4.5 mmol/L (3.5-5.1); Sodium 138 mmol/L (135-145); eGFR > 60.00
[2024-03-22 07:35] VITALS: BP 142/90
[2024-03-22] MEDS: DELTASONE 5 MG PO ×2 (08:06→21:13)
[2024-03-22] MEDS: VITAMIN D3 (cholecalciferol) 25 MCG PO (08:06)
[2024-03-22] MEDS: ELIQUIS 5 MG PO ×2 (08:06→21:13)
[2024-03-22 08:30] LABS: Glucose - Point of Care 148 mg/dl (70-99)
[2024-03-22] MEDS: NOVOLOG FLEXPEN-LOW RESISTANCE SC (09:02)
--- NOTE | 2024-03-22 09:59 | W.PN.HOSP.TC ---
Today's Communication/Plan
-
Patient to continue with Abx. Monitor for any bowel movements and any worsening abdominal pain or constipation
Assessment / Plan
Assessment / Plan
Assessment:
65y M with a pmhx of NIDDM came to the ED on 03/18/2024 due to acute onset of nausea, vomiting and diarrhea. Patient was found to be hypotensive and given Zofran and fluids. Patient was found to be positive for Norovirus and started on supportive
care with IVF and anti-emetics. Patient's hyperglycemia has been controlled with insulin sliding scale as his oral agents were held. He is currently feeling stronger and his nausea, vomiting, and diarrhea have seemed to resolve for now. Just has
some constipation at the moment.
#Acute gastroenteritis
-Patient was hypotensive upon admission which was most probably secondary to viral gastroenteritis related diarrhea
-Positive for Norovirus
-Positive for C.Diff antigen, not toxin
-Continue Supportive Care with IV fluids and Antiemetics as needed
-Able to tolerate Regular diet
-Orthostatic Vitals due to his dizziness
-113/68 while standing, 95/67 supine, 108/68 sitting-> Improved from before
-IVF discontinued as patient can tolerate PO fluids
-Continue supportive therapy
-Patient was started on PO Vancomycin due to his diarrhea yesterday. Will continue 10 day course
#EMILY with suspected ATN
-Resolved (Creatinine 0.9)
-On IVF
-Urine Studies show Urine Sodium 129, Urine Creatinine 68
-FENA 5.7 %
-Urine studies )Cory/Ucr/Upro
-Avoid nephrotoxins and hypotension
#Non Insulin Dependent Type 2 diabetes
-Management with Insulin sliding scale
-Resume home therapy with metformin, glimepiride and Trulicity upon discharge
#PE history
Continue Eliquis BID
#Hypertension
Holding Losartan
Continue to monitor BP
#Psoriatic arthritis
Continue methotrexate 25 mg every Wednesday
Continue prednisone 5 mg twice a day
#Macrocytosis
Outpatient b12/folate,
-On methotrexate and likely related
-On folate
#Hyperlipidemia
Continue simvastatin
Full Code
DVT Prophylaxis: Eliquis
Anticipated Discharge: Within 24 hours
Subjective/Interval History
-
Date of Service: March 22, 2024
Patient says that he is feeling more energetic now and has been able to go to the bathroom without using his walker. He has been having some constipation now after starting antibiotics yesterday and feels like his abdomen is more distended.
Objective Data
-
Labs:
Laboratory Results
03/22/24
04:59
WBC 6.0
Hgb 12.8 L
Hct 36.7 L
Plt Count 155
Sodium 138
Potassium 4.5
Chloride 104
Carbon Dioxide 28
BUN 21 H
Creatinine 0.9
Glucose 164 H
Calcium 9.0
Vital Signs:
Vital Signs
Temp Pulse Resp BP Pulse Ox
97.7 F 69 18 142/90 94
03/22/24 07:35 03/22/24 07:35 03/22/24 07:35 03/22/24 07:35 03/22/24 07:35
I&O
03/21/24 03/22/24 03/23/24
06:59 06:59 06:59
Intake Total 5320 / 5320 1200 / 1200
Output Total 1300 / 1300 700 / 700
Balance 4020 / 4020 500 / 500
Review of Systems
-
History Source: Patient
Constitutional: Denies Fever, No Appetite or Chills
EENT: Reports No Symptoms Reported
Respiratory: Denies Cough, Trouble Breathing or Wheezing
Cardiac: Denies Chest Pain, Diaphoresis, Palpitations or Syncope
Abdomen/GI: Reports Abdominal Pain and Constipated; Denies Nausea, Vomiting or Diarrhea
Musculoskeletal: Reports No Symptoms
Skin: Reports No Symptoms
Neuro: Denies Headache, Weakness or Numbness
Endocrine: Reports No Symptoms
Hematologic / Lymphatic: Reports No Symptoms
Allergy / Immunology: Reports No Symptoms
Physical Exam
-
General: Well Developed, Well Nourished, No Apparent Distress and Comfortable
HEENT: Normocephalic, Atraumatic and Moist Mucous Membranes
Respiratory: Clear to Auscultation and Non Labored Respirations
Cardiac: Regular Rhythm and S1/S2
GI: Soft, Tender (Some Right Lower quadrant tenderness) and Distended
Musculoskeletal: No Clubbing, No Cyanosis and No Edema
Skin: Warm
Neuro: Awake, Alert, Oriented and AO x 3
Psych: Calm
Data Reviewed
-
Labs: Labs Reviewed by me, Discussed with Physician and Discussed with Patient
[2024-03-22 10:30] VITALS: BP 152/92; BP 158/97; BP 160/94; PULSE 70; PULSE 77
[2024-03-22 12:02] LABS: Glucose - Point of Care 184 mg/dl (70-99)
[2024-03-22] MEDS: NOVOLOG FLEXPEN-LOW RESISTANCE 1 UNITS SC ×2 (12:15→17:18)
[2024-03-22 15:37] VITALS: BP 153/88
[2024-03-22 16:53] LABS: Glucose - Point of Care 160 mg/dl (70-99)
[2024-03-22] MEDS: FOLVITE 1 MG PO (17:17)
[2024-03-22 21:56] LABS: Glucose - Point of Care 157 mg/dl (70-99)
[2024-03-22 23:00] VITALS: BP 141/86
[2024-03-22 23:23] VITALS: BP 145/91; BP 148/87; BP 159/89; PULSE 78; PULSE 79; PULSE 91
[2024-03-23 05:15] VITALS: BMI 38.0
[2024-03-23] MEDS: FIRVANQ 125 MG PO ×3 (06:09→17:30)
[2024-03-23] MEDS: OCEAN, SALINE MIST 1 SPRAYS NASAL (06:10)
[2024-03-23] MEDS: TYLENOL 1000 MG PO ×3 (06:15→17:37)
[2024-03-23 07:39] LABS: COVID-19 Antigen Negative (Negative)
[2024-03-23 07:55] VITALS: BP 126/84
[2024-03-23 08:08] LABS: Hemoglobin 13.4 g/dL (13.0-18.0); Mean Corp Hgb Conc. 34.4 g/dL (33.0-37.0); Mean Corpuscular Hgb 34.9 pg (27.0-31.0); Mean Corpuscular Volume 101.6 fL (80.0-94.0); Mean Platelet Volume 10.6 fL (7.4-10.4); Platelet Count 156 10^3/uL (130-400); Red Blood Cell Count 3.84 10^6/uL (4.70-6.10); Red Cell Dist. Width 13.1 % (11.5-14.5); White Blood Cell Count 7.8 10^3/uL (4.8-10.8)
[2024-03-23 08:17] LABS: Glucose - Point of Care 142 mg/dl (70-99)
[2024-03-23 08:44] LABS: Blood Urea Nitrogen 26 mg/dl (9-20); Calcium 9.3 mg/dl (8.4-10.2); Carbon Dioxide 30 mmol/L (22-30); Chloride 102 mmol/L (98-107); Estimated Creatinine Clearance 122 ml/min; Glucose 161 mg/dl (70-99); Sodium 138 mmol/L (135-145); eGFR > 60.00
[2024-03-23] MEDS: NOVOLOG FLEXPEN-LOW RESISTANCE SC (08:51)
[2024-03-23] MEDS: ELIQUIS 5 MG PO ×2 (08:52→17:30)
[2024-03-23] MEDS: VITAMIN D3 (cholecalciferol) 25 MCG PO (08:52)
[2024-03-23] MEDS: DELTASONE 5 MG PO ×2 (08:52→17:30)
[2024-03-23 08:59] LABS: Potassium 4.3 mmol/L (3.5-5.1)
--- NOTE | 2024-03-23 09:10 | W.PN.HOSP.TC ---
Today's Communication/Plan
-
Continue supportive therapy, patient may be safe for discharge if he has a bowel movement.
Assessment / Plan
Assessment / Plan
Assessment:
65y M with a pmhx of NIDDM came to the ED on 03/18/2024 due to acute onset of nausea, vomiting and diarrhea. Patient was found to be hypotensive and given Zofran and fluids. Patient was found to be positive for Norovirus and started on supportive
care with IVF and anti-emetics. Patient's hyperglycemia has been controlled with insulin sliding scale as his oral agents were held. He is currently feeling stronger and his nausea, vomiting, and diarrhea have seemed to resolve for now. Just has
some constipation at the moment.
#Acute gastroenteritis
-Patient was hypotensive upon admission which was most probably secondary to viral gastroenteritis related diarrhea
-Positive for Norovirus
-Positive for C.Diff antigen, not toxin
-Continue Supportive Care with IV fluids and Antiemetics as needed
-Able to tolerate Regular diet
-Orthostatic Vitals due to his dizziness
-113/68 while standing, 95/67 supine, 108/68 sitting-> Improved from before
-IVF discontinued as patient can tolerate PO fluids
-Continue supportive therapy
-Patient was started on PO Vancomycin due to his diarrhea. Will discuss with ID if further treatment is necessary as he no longer as diarrhea
-Now is constipated, will give Miralax/Colace as needed
#Probably Upper Respiratory Viral Infection
-COVID-19 Negative
-Increased sinus pressure with post nasal drip
-Supportive therapy, give nasal spray as needed
#EMILY with suspected ATN
-Resolved (Creatinine 0.9)
-On IVF
-Avoid nephrotoxins and hypotension
#Non Insulin Dependent Type 2 diabetes
-Management with Insulin sliding scale
-Resume home therapy with metformin, glimepiride and Trulicity upon discharge
#PE history
Continue Eliquis BID
#Hypertension
Holding Losartan
Continue to monitor BP
#Psoriatic arthritis
Continue methotrexate 25 mg every Wednesday
Continue prednisone 5 mg twice a day
#Macrocytosis
Outpatient b12/folate,
-On methotrexate and likely related
-On folate
#Hyperlipidemia
Continue simvastatin
Full Code
DVT Prophylaxis: Eliquis
Anticipated Discharge: Within 24 hours
Subjective/Interval History
-
Date of Service: March 23, 2024
Patient says that he has been feeling worse as his sinuses are clogged and he has a cold. He still complains about right sided abdominal pain and constipation now.
Objective Data
-
Labs:
Laboratory Results
03/23/24
06:58
WBC 7.8
Hgb 13.4
Hct 39.0
Plt Count 156
Sodium 138
Potassium 4.3
Chloride 102
Carbon Dioxide 30
BUN 26 H
Creatinine 0.9
Glucose 161 H
Calcium 9.3
Vital Signs:
Vital Signs
Temp Pulse Resp BP Pulse Ox
97.9 F 59 14 126/84 92
03/23/24 07:55 03/23/24 07:55 03/23/24 07:55 03/23/24 07:55 03/23/24 07:55
I&O
03/22/24 03/23/24 03/24/24
06:59 06:59 06:59
Intake Total 1200 / 1200 1380 / 1380 720 / 720
Output Total 700 / 700
Balance 500 / 500 1380 / 1380 720 / 720
Review of Systems
-
History Source: Patient
Constitutional: Denies Fever, No Appetite, Fatigue or Chills
EENT: Reports Other (Increased Sinus Pressure)
Respiratory: Denies Cough or Trouble Breathing
Cardiac: Denies Chest Pain, Diaphoresis or Palpitations
Abdomen/GI: Reports Abdominal Pain and Constipated; Denies Nausea, Vomiting or Diarrhea
Genitourinary: Reports No Symptoms
Musculoskeletal: Reports No Symptoms
Skin: Reports No Symptoms
Neuro: Reports Headache
Hematologic / Lymphatic: Reports No Symptoms
Allergy / Immunology: Reports No Symptoms
Physical Exam
-
General: Well Developed, Well Nourished, No Apparent Distress, Comfortable and Conversant
HEENT: Normocephalic, Atraumatic and Moist Mucous Membranes
Respiratory: Clear to Auscultation and Non Labored Respirations
Cardiac: Regular Rhythm and S1/S2
GI: Soft, Tender (Right Lower Quadrant) and Distended
Musculoskeletal: No Clubbing, No Cyanosis and No Edema
Skin: Warm
Neuro: Awake, Alert, Oriented and AO x 3
Psych: Calm
Data Reviewed
-
Diagnostic Radiology: Report Reviewed by me, Discussed with Physician and Discussed with Patient
Labs: Labs Reviewed by me, Discussed with Physician and Discussed with Patient
--- NOTE | 2024-03-23 10:24 | CM ---
Reviewed the chart notes. CM continues to be available to patient/family and is monitoring medical plan for needs at discharge.
Plan: Discharge to home when medically stable. No needs anticipated.
[2024-03-23 11:37] LABS: Glucose - Point of Care 191 mg/dl (70-99)
[2024-03-23] MEDS: NOVOLOG FLEXPEN-LOW RESISTANCE 1 UNITS SC (11:59)
--- NOTE | 2024-03-23 12:19 | W.DCSUMMARY ---
Documented by User: Kvng Mohr MD, Resident 03/23/24 13:38
Discharge Summary
Discharge Data
Date of Admission: 03/18/24
Date of Discharge: 03/23/24
-
Pending Results: No
Hospital Course
Discharging Physician : Dr. Wilfredo Davis, Dr. Kvng Mohr
Disposition : Home
Primary care physician : Dr. Harpreet Kelsey
Principal Discharge diagnosis : Acute Viral Gastroenteritis
Chronic Discharge diagnosis : Non-insulin dependent diabetes type 2, Psoriatic Arthritis
Hospital Course :
63-year-old male with past history of psoriatic arthritis, type 2 diabetes mellitus, hypertension, hyperlipidemia, history of pulmonary embolism presented to the [facility] ED on 03/18/2024 with intractable nausea and vomiting. He was found to be
hypotensive and given Zofran and IV fluids his stools were checked for norovirus which was positive. Patient's different electrolyte abnormalities were corrected with repletion. Patient continued to get supportive care upon admission. Patient
stool studies came back positive for C. difficile antigen negative for C. difficile toxin. Patient continued to have diarrhea and some abdominal discomfort and was started on a course of oral vancomycin. He continued to feel better however
developed some constipation and started diarrhea. Patient started developed some upper respiratory illness most likely viral in nature. Given supportive therapy and as patient was stable was discharged home. Oral vancomycin was stopped at this
time as his symptoms were most likely not due to C. difficile.
Important imaging findings :
CR Chest Portable - 1 View
-No acute disease of the chest.
US Renal With Bladder
Bilateral renal cysts. No evidence for hydronephrosis.
CR Abdomen - 1 View
Nonobstructive bowel gas pattern. Mild colonic stool burden.
Discharge Plan
-
Patient Disposition: Home (Routine Discharge)
Discharge Diagnosis/Procedures: Viral Gastritis
Diet: Diabetic, Carb Controlled
Activity: No restrictions
Driving Restrictions: As prior to admission
Bathing Restrictions: None
Referrals:
Harpreet Kelsey MD [Family Provider] -
Prescriptions:
Continued
losartan 50 mg Tablet
50 mg PO QPM
prednisone 5 mg Tablet
5 mg PO BID
acetaminophen [Tylenol Extra Strength] 500 mg Tablet
1,000 mg PO Q6HPRN PRN (Reason: mild pain)
methotrexate sodium 2.5 mg Tablet
25 mg PO WE
simvastatin 20 mg Tablet
20 mg PO QPM
metformin 1,000 mg Tablet
1,000 mg PO BID
glimepiride 4 mg Tablet
4 mg PO BID
folic acid 1 mg Tablet
1 mg PO QPM
cholecalciferol (vitamin D3) [Vitamin D3] 25 mcg (1,000 unit) Tablet
25 mcg PO DAILY
Eliquis 5 mg Tablet
5 mg PO BID
Trulicity 1.5 mg/0.5 mL Pen Injector
1.5 mg SC WE
Discharge Orders:
Discharge Patient (As Directed); Ordered 03/23/24
Ordered By: Kvng Mohr
Discharge Date and Time
Discharge Date/Time: 03/23/24 19:01
Print Language: TONGAN

Documented by User: Wilfredo Davis DO 03/24/24 12:15
Discharge Summary
Discharge Data
Date of Admission: 03/18/24
Date of Discharge: 03/24/24
Discharge Plan
-
Patient Disposition: Home (Routine Discharge)
Discharge Diagnosis/Procedures: Viral Gastritis
Diet: Diabetic, Carb Controlled
Activity: No restrictions
Driving Restrictions: As prior to admission
Bathing Restrictions: None
Referrals:
Harpreet Kelsey MD [Family Provider] -
Prescriptions:
Continued
losartan 50 mg Tablet
50 mg PO QPM
prednisone 5 mg Tablet
5 mg PO BID
acetaminophen [Tylenol Extra Strength] 500 mg Tablet
1,000 mg PO Q6HPRN PRN (Reason: mild pain)
methotrexate sodium 2.5 mg Tablet
25 mg PO WE
simvastatin 20 mg Tablet
20 mg PO QPM
metformin 1,000 mg Tablet
1,000 mg PO BID
glimepiride 4 mg Tablet
4 mg PO BID
folic acid 1 mg Tablet
1 mg PO QPM
cholecalciferol (vitamin D3) [Vitamin D3] 25 mcg (1,000 unit) Tablet
25 mcg PO DAILY
Eliquis 5 mg Tablet
5 mg PO BID
Trulicity 1.5 mg/0.5 mL Pen Injector
1.5 mg SC WE
Discharge Orders:
Discharge Patient (As Directed); Ordered 03/23/24
Ordered By: Kvng Mohr
Discharge Date and Time
Discharge Date/Time: 03/23/24 19:01
Print Language: TONGAN
[2024-03-23 15:42] VITALS: BP 144/75
[2024-03-23 16:51] LABS: Glucose - Point of Care 206 mg/dl (70-99)
[2024-03-23] MEDS: NOVOLOG FLEXPEN-LOW RESISTANCE 2 UNITS SC (17:29)
[2024-03-23] MEDS: FOLVITE 1 MG PO (17:30)
== END 2024-03-23 19:01 | disposition home or self-care (01) | DRG 392 ==
LOC: 2 NORTH 18:02
PROVIDERS: Hospitalist; Nurse Practitioner Gerontology; ADMITTING PHYSICIAN Internal Medicine; ATTENDING PHYSICIAN Internal Medicine; EMERGENCY PHYSICIAN Emergency Medicine; FAMILY PHYSICIAN Internal Medicine
DX: A08.11 Acute gastroenteropathy due to Norwalk agent (principal); N17.9 Acute kidney failure, unspecified; R53.1 Weakness; E11.65 Type 2 diabetes mellitus with hyperglycemia; I95.9 Hypotension, unspecified; E83.51 Hypocalcemia; J06.9 Acute upper respiratory infection, unspecified; E66.01 Morbid (severe) obesity due to excess calories; I10 Essential (primary) hypertension; L40.50 Arthropathic psoriasis, unspecified; K59.00 Constipation, unspecified; E78.5 Hyperlipidemia, unspecified; D75.89 Other specified diseases of blood and blood-forming organs; Z86.711 Personal history of pulmonary embolism; Z88.0 Allergy status to penicillin; Z88.8 Allergy status to other drugs, medicaments and biological substances; Z91.018 Allergy to other foods; Z68.38 Body mass index [BMI] 38.0-38.9, adult; Z11.52 Encounter for screening for COVID-19
CPT/HCPCS: 71045; 74018; 76770; 80048; 80053; 81003; 82010; 82570; 82962; 83036; 84156; 84300; 85025; 85027; 87045; 87046; 87324; 87427; 87449; 87798; 87811; 93005; 96361; 96374; 96375; 97165; 99285

== ENCOUNTER 2024-03-28 12:29 | Emergency (ER) | payer OTHER, SELFPAY ==
[2024-03-28 12:53] VITALS: BP 141/103
[2024-03-28 13:14] LABS: % Basophils 0.4 % (0-2); % Eosinophils 0.6 % (0-6); % Immature Granulocytes 0.8 % (0-0.5); % Lymphocytes 13.4 % (20.5-51.1); % Monocytes 9.8 % (1.7-9.3); Absolute Basophils 0.1 10^3/uL (0-0.2); Absolute Eosinophils 0.1 10^3/uL (0-0.7); Absolute Immature Granulocytes 0.1 10^3/uL (0-0.05); Absolute Lymphocytes 1.6 10^3/uL (1.2-3.4); Absolute Monocytes 1.2 10^3/uL (0.1-0.6); Absolute Neutrophils 9.1 10^3/uL (1.4-6.5); Hematocrit 44.4 % (39.0-52.0); Hemoglobin 14.9 g/dL (13.0-18.0); Mean Corp Hgb Conc. 33.6 g/dL (33.0-37.0); Mean Corpuscular Hgb 34.4 pg (27.0-31.0); Mean Corpuscular Volume 102.5 fL (80.0-94.0); Mean Platelet Volume 9.9 fL (7.4-10.4); Nucleated Red Blood Cells % 0 % (-); Platelet Count 304 10^3/uL (130-400); Red Blood Cell Count 4.33 10^6/uL (4.70-6.10); White Blood Cell Count 12.1 10^3/uL (4.8-10.8)
[2024-03-28 13:33] LABS: ALT (SGPT) 27 U/L (0-50); AST (SGOT) 24 U/L (17-59); Albumin 4.3 g/dl (3.5-5.0); Alkaline Phosphatase 107 U/L (38-126); Blood Urea Nitrogen 33 mg/dl (9-20); Calcium 9.8 mg/dl (8.4-10.2); Carbon Dioxide 24 mmol/L (22-30); Chloride 102 mmol/L (98-107); Glucose 143 mg/dl (70-99); Lipase 153 U/L (23-300); Potassium 5.2 mmol/L (3.5-5.1); Sodium 137 mmol/L (135-145); Total Bilirubin 0.7 mg/dl (0.2-1.3); Total Protein 7.1 g/dl (6.3-8.2); eGFR > 60.00
[2024-03-28 14:30] VITALS: BP 119/66
--- NOTE | 2024-03-28 16:38 | ED.GENMED ---
History of Present Illness
<Lea Cruz PA-C - Last Filed: 03/28/24 20:10>
General
Chief Complaint: Dehydration Symptoms
Source: patient
Exam Limitations: none
Time Seen by Provider: 03/28/24 16:36
Nursing documentation reviewed up to this point in time: agreed with
History of Present Illness
History of Present Illness:
63-year-old male presents emergency department today with concerns of dry mucous membranes and possible dehydration. Patient states that he was recently admitted to the hospital for norovirus, he initially had persistent diarrhea, nausea, vomiting
and was diagnosed with norovirus and he had electrolyte abnormalities noted on blood work at the time. He was admitted for rehydration. There is also concern for possible colitis. Patient states that he a follow-up appoint with his primary care
provider today when he was told to go to the emergency department because his mucous membranes appeared dry and he appeared dehydrated to his PCP. Patient states that ever since being discharged on March 25, patient feels like he not has not
made a full recovery. He still has intermittent loose stools. Patient states that at home he noticed that when he stands his blood pressure drops and he becomes tachycardic. This has been going on for the past few days. Patient denies any
headaches, visual loss, weakness in one-sided body versus other, any difficulty ambulating. Patient denies any dysphagia or difficulty swallowing.
Review of Systems
<Lea Cruz PA-C - Last Filed: 03/28/24 20:10>
Review of Systems
All Other Systems: ROS reviewed and negative except as documented in HPI and ROS
Phy Exam
<Lea Cruz PA-C - Last Filed: 03/28/24 20:10>
Physical Exam
Physical Exam:
General: Patient is well appearing and in no acute distress; non-toxic
Skin: Warm and dry, no rashes or lesions
Head: Normocephalic, atraumatic
Eyes: Sclera non-icteric. EOMs intact. PERRLA. No nystagmus
Cardiac: Regular rate and rhythm, no murmurs
Peripheral Vascular: No lower extremity swelling or edema
Pulm: Normal respiratory effort, no wheezes, rales, rhonchi
Abdomen: No abdominal tenderness to palpation
Neuro: CN II-XII intact, no focal neurologic deficits. Normal finger-nose, [id number]. Normal gait.
Psychiatric: Appropriate mood and affect.
Course
<Lea Cruz PA-C - Last Filed: 03/28/24 20:10>
Orders/Labs/Results
Orders:
Orders
03/28/24 12:57
Electrocardiogram (*1) Urgent
Reason for Study: Vertigo / Dizzy
EKG- Treatment ONCE
03/28/24 12:59
Complete Blood Count/With Diff Urgent
Comprehensive Metabolic Panel Urgent
Lipase Urgent
03/28/24 16:48
Orthostatic VS- Treatment ONCE
0.9% Sodium Chloride 1000 ml [Nss] 1,000 ml IV BOLUS
Abnormal Lab Results
03/28/24
12:59
WBC 12.1 H 10^3/uL
(4.8-10.8)
RBC 4.33 L 10^6/uL
(4.70-6.10)
MCV 102.5 H fL
(80.0-94.0)
MCH 34.4 H pg
(27.0-31.0)
Abs Immat Gran (auto) 0.1 H 10^3/uL
(0-0.05)
Absolute Neuts (auto) 9.1 H 10^3/uL
(1.4-6.5)
Absolute Monos (auto) 1.2 H 10^3/uL
(0.1-0.6)
Immature Gran % 0.8 H %
(0-0.5)
Lymphocytes % 13.4 L %
(20.5-51.1)
Monocytes % 9.8 H %
(1.7-9.3)
Potassium 5.2 H mmol/L
(3.5-5.1)
BUN 33 H mg/dl
(9-20)
Glucose 143 H mg/dl
(70-99)
03/28/24 12:59
03/28/24 12:59
Vital Signs
Initial and Last Documented VS:
Initial Vital Signs
Temp Pulse Resp BP Pulse Ox
98.2 F 94 22 141/103 98
03/28/24 12:53 03/28/24 12:53 03/28/24 12:53 03/28/24 12:53 03/28/24 12:53
Last Documented Vital Signs
Temp Pulse Resp BP Pulse Ox
98.2 F 76 18 153/89 94
03/28/24 12:53 03/28/24 14:30 03/28/24 14:30 03/28/24 18:00 03/28/24 18:00
<Kain Hager, DO - Last Filed: 03/28/24 17:45>
Orders/Labs/Results
Orders:
Orders
03/28/24 12:57
Electrocardiogram (*1) Urgent
Reason for Study: Vertigo / Dizzy
EKG- Treatment ONCE
03/28/24 12:59
Complete Blood Count/With Diff Urgent
Comprehensive Metabolic Panel Urgent
Lipase Urgent
03/28/24 16:48
Orthostatic VS- Treatment ONCE
0.9% Sodium Chloride 1000 ml [Nss] 1,000 ml IV BOLUS
Abnormal Lab Results
03/28/24
12:59
WBC 12.1 H 10^3/uL
(4.8-10.8)
RBC 4.33 L 10^6/uL
(4.70-6.10)
MCV 102.5 H fL
(80.0-94.0)
MCH 34.4 H pg
(27.0-31.0)
Abs Immat Gran (auto) 0.1 H 10^3/uL
(0-0.05)
Absolute Neuts (auto) 9.1 H 10^3/uL
(1.4-6.5)
Absolute Monos (auto) 1.2 H 10^3/uL
(0.1-0.6)
Immature Gran % 0.8 H %
(0-0.5)
Lymphocytes % 13.4 L %
(20.5-51.1)
Monocytes % 9.8 H %
(1.7-9.3)
Potassium 5.2 H mmol/L
(3.5-5.1)
BUN 33 H mg/dl
(9-20)
Glucose 143 H mg/dl
(70-99)
03/28/24 12:59
03/28/24 12:59
Vital Signs
Initial and Last Documented VS:
Initial Vital Signs
Temp Pulse Resp BP Pulse Ox
98.2 F 94 22 141/103 98
03/28/24 12:53 03/28/24 12:53 03/28/24 12:53 03/28/24 12:53 03/28/24 12:53
Last Documented Vital Signs
Temp Pulse Resp BP Pulse Ox
98.2 F 76 18 153/89 94
03/28/24 12:53 03/28/24 14:30 03/28/24 14:30 03/28/24 18:00 03/28/24 18:00
Uniquelt;Lea Cruz PA-C - Last Filed: 03/28/24 20:10>
MDM/Problems Addressed
Differential Diagnosis Includes:
See below
MDM/Problems Addressed:
NUMBER AND COMPLEXITY OF PROBLEMS ADDRESSED AT THE ENCOUNTER
� Chronic conditions affecting care: Diabetes, history of PE on Eliquis
� Acute Exacerbation and/or Progression of Chronic Illness:
� Differential Diagnosis includes: orthostatic hypotension, dehydration, upper respiratory infection, norovirus, arrhythmia
AMOUNT AND/OR COMPLEXITY OF DATA TO BE REVIEWED AND ANALYZED
� I performed an independent evaluation of and my interpretation is:
EKG: Normal sinus rhythm rate 79 with no ischemic changes, no arrhythmia
Laboratory Studies: Elevated BUN to creatinine ratio suggesting mild dehydration, will give a liter of fluids
Other:
� Review of other/old records: Reviewed discharge summary from patient's hospitalization, reviewed discharge summary from 03/23/2024, patient admitted for IV fluids and Zofran, started on dose of oral glycemic to cover for possible C. difficile
however his symptoms were ultimately attributed to viral gastroenteritis
� Clinical information was obtained by an independent historian: n/a
� Prescriptions/Medications Considered but not given: n/a
� Further testing considered but not performed: n/a
RISK OF COMPLICATIONS AND/OR MORBIDITY OR MORTALITY OF PATIENT MANAGEMENT
� Social determinants of health affecting care: lack of family/friend support
� Discussion with other providers: ER attending
� Escalation of care including admission/observation vs risk of discharge considered:
63-year-old male with a past medical history of norovirus presents emergency department today with concerns of dehydration. Patient states that he was recently hospitalized for norovirus and had a follow-up appoint with his PCP today was told to
report to emergency department as patient appeared dehydrated on exam and had dry mucous membranes. Here emergency department, patient was rehydrated. His lab work is reassuring. Based on his neurologic exam do not suspect stroke, do not suspect
arrhythmia at this time. Patient states that his symptoms have improved with the fluids but is concerned his symptoms will occur again he will have to come back to the hospital. Patient is requesting admission. We did discuss how admission is not
indicated at this time, patient expressed understanding, patient will continue to monitor his symptoms. Patient states that he did have positive orthostatic vitals at home, this could play a component as well. I recommend that patient see a
typing secretary. Patient stable for discharge.
<Lea Cruz PA-C - Last Filed: 03/28/24 20:10>
*Critical Care Note
Total Time (30-74mins, 75-104mins- exclusive of procedures): Not Applicable
ED Attending Note
<Lea Cruz PA-C - Last Filed: 03/28/24 20:10>
-
Portions of this chart may have been created with voice recognition software.� Occasional wrong word or��sound alike� substitutions may have occurred due to the inherent limitations of voice recognition software.
<Kain Hager DO - Last Filed: 03/28/24 17:45>
ED Attending Note
Patient seen and examined by attending physician: Yes
I performed a history and physical exam of patient and discussed management with resident, I reviewed resident's note and agree with documented findings and plan of care.: Yes
ED Attending Note:
63-year-old male presents with dizziness worse with standing, diagnosis norovirus recently admitted discharged few days ago continues to have some loose stools with to his PCP referred here labs are noted, will hydrate, suspect he will be able to go
home patient is reluctant we will see how he does
Discharge Plan
Departure
Patient Disposition: Home (Routine Discharge)
Date of Disposition: 03/28/24
Time of Disposition: 19:27
Patient with high blood pressure during this ER visit?: Yes
Condition: Good
Discharge Problem:
Orthostatic hypotension, Acute dehydration
Instructions: Dehydration, Adult (DC), BLOOD PRESSURE
Prescriptions:
No Action
losartan 50 mg Tablet
50 mg PO QPM
prednisone 5 mg Tablet
5 mg PO BID
acetaminophen [Tylenol Extra Strength] 500 mg Tablet
1,000 mg PO Q6HPRN PRN (Reason: mild pain)
methotrexate sodium 2.5 mg Tablet
25 mg PO WE
simvastatin 20 mg Tablet
20 mg PO QPM
metformin 1,000 mg Tablet
1,000 mg PO BID
glimepiride 4 mg Tablet
4 mg PO BID
folic acid 1 mg Tablet
1 mg PO QPM
cholecalciferol (vitamin D3) [Vitamin D3] 25 mcg (1,000 unit) Tablet
25 mcg PO DAILY
Eliquis 5 mg Tablet
5 mg PO BID
Trulicity 1.5 mg/0.5 mL Pen Injector
1.5 mg SC WE
Referrals:
Harpreet Kelsey MD [Family Provider] -
Iris Marrufo MD [Active] - Call in 1-3 days for appt
Activity Restrictions/Additional Instructions:
Please call the attached number to schedule an appointment to see cardiology to address your ongoing BP issues and your blood pressure dropping with standing.
PLEASE RETURN TO THE EMERGENCY DEPARTMENT SHOULD YOU EXPERIENCE A RETURN OF YOUR SYMPTOMS, CHEST PAIN, SHORTNESS OF BREATH, DIFFICULTY AMBULATING, CONFUSION, WEAKNESS, SYNCOPAL EPISODES, OR ANY OTHER SIGNS OR SYMPTOMS CONCERNING TO YOU.
Interventions
Interventions:
*Risk Screen - Suicide Last Done: 03/28/24 17:22
*General Assessment Last Done: 03/28/24 17:22
*Neglect/Abuse Screening Last Done: 03/28/24 17:22
ED- Fall Risk Assessment Last Done: 03/28/24 18:14
*ED COVID-19 Vaccine History Last Done: 03/28/24 17:22
ED- Cardiac Assessment Last Done: 03/28/24 17:23
ED- Neurological Assessment Last Done: 03/28/24 17:23
ED- Pulmonary Assessment Last Done: 03/28/24 17:23
Discharge Date and Time
Print Language: MARSHALLESE
[2024-03-28 17:19] VITALS: BP 125/80
[2024-03-28] MEDS: NSS 1000 IV (17:36)
[2024-03-28 18:00] VITALS: BP 153/89
[2024-03-28 18:50] VITALS: BP 157/106; BP 163/91; BP 168/93; PULSE 103; PULSE 68; PULSE 79
[2024-03-28 20:00] VITALS: BP 152/72
== END 2024-03-28 20:05 | disposition home or self-care (01) ==
LOC: EMR 12:29
PROVIDERS: Emergency Medicine; EMERGENCY PHYSICIAN Emergency Medicine; FAMILY PHYSICIAN Internal Medicine
DX: I95.1 Orthostatic hypotension (principal); E86.0 Dehydration; E11.9 Type 2 diabetes mellitus without complications; Z86.711 Personal history of pulmonary embolism; Z79.01 Long term (current) use of anticoagulants
CPT/HCPCS: 96360; 99284; 80053; 83690; 85025; 93005

== ENCOUNTER 2024-10-24 20:18 | Inpatient (IN) | payer OTHER, SELFPAY ==
[2024-10-24 14:50] VITALS: BP 137/93
[2024-10-24 15:02] LABS: Hematocrit 39.3 % (39.0-52.0); Hemoglobin 13.8 g/dL (13.0-18.0); Mean Corp Hgb Conc. 35.1 g/dL (33.0-37.0); Mean Corpuscular Volume 107.4 fL (80.0-94.0); Nucleated Red Blood Cells % 0 % (-); Platelet Count 153 10^3/uL (130-400); Red Cell Dist. Width 15.4 % (11.5-14.5)
[2024-10-24 15:21] LABS: ALT (SGPT) 38 U/L (0-50); AST (SGOT) 32 U/L (17-59); Albumin 4.2 g/dl (3.5-5.0); Alkaline Phosphatase 83 U/L (38-126); Blood Urea Nitrogen 34 mg/dl (9-20); Calcium 9.5 mg/dl (8.4-10.2); Carbon Dioxide 23 mmol/L (22-30); Chloride 107 mmol/L (98-107); Glucose 194 mg/dl (70-99); Potassium 4.2 mmol/L (3.5-5.1); Sodium 138 mmol/L (135-145); Total Protein 7.2 g/dl (6.3-8.2); eGFR > 60.00
[2024-10-24 15:26] LABS: Troponin I < 0.012 ng/ml
[2024-10-24 17:00] VITALS: BP 139/114
[2024-10-24 17:44] VITALS: BMI 37.7
[2024-10-24 18:01] VITALS: BP 141/88
[2024-10-24] MEDS: NSS 1000 IV (18:34)
[2024-10-24 19:00] VITALS: BP 130/74
[2024-10-24 19:04] LABS: Troponin I < 0.012 ng/ml
--- NOTE | 2024-10-24 19:18 | ED.GENMED ---
History of Present Illness
General
Chief Complaint: Dizziness
Source: patient
Exam Limitations: none
Time Seen by Provider: 10/24/24 17:33
Nursing documentation reviewed up to this point in time: agreed with
History of Present Illness
History of Present Illness:
see MDM
Phy Exam
Physical Exam
Physical Exam:
GENERAL: Alert , in no apparent distress
EYE: pupils equal and reactive
NECK: Supple
ENT: dry mouth
plaques of white in the posterior pharynx
very dry tongue; erythematous posterior pharynx
CARDIAC: Regular rate and rhythm .
LUNGS: Clear breath sounds bilaterally, no acute respiratory distress, no wheezes/rales/rhonchi
ABDOMEN: Soft, without focal tenderness, no r/g, no cvat, normal bowel sounds
NEUROLOGICAL: Alert and oriented, no focal neuro deficits
SKIN: intertrigo erythematous skin with moist foul smelling discharge/cream both inguinal regions worse on L, some to perineum;
MUSCULOSKELETAL: No edema hyperpig,mented; normal pulses;
PSYCH: Normal and appropriate interaction.
Course
Orders/Labs/Results
Orders:
Orders
10/24/24 14:44
Electrocardiogram (*1) Urgent
Reason for Study: Vertigo / Dizzy
EKG- Treatment ONCE
10/24/24 14:54
CR Chest - 2 Views Urgent
Comment:
Reason For Exam: chest pain
10/24/24 14:57
Complete Blood Count/With Diff Urgent
Comprehensive Metabolic Panel Urgent
Troponin I Urgent
10/24/24 18:13
Electrocardiogram (*1) Urgent
Reason for Study: Chest Pain
EKG- Treatment ONCE
10/24/24 18:19
Fluconazole 400 mg/200 ml [Diflucan 400 mg] 800 mg Empty Viaflex Container 500 ml [Viaflex Empty Container] 0 ml IV ONCE
10/24/24 18:27
Troponin I Urgent
10/24/24 18:30
0.9% Sodium Chloride 1000 ml [Nss] 1,000 ml IV BOLUS
Lidocaine Visc/Maalox/Benadryl [Magic or Miracle Mouthwash] 5 ml PO ONCE ONE
Abnormal Lab Results
10/24/24
14:57
RBC 3.66 L 10^6/uL
(4.70-6.10)
MCV 107.4 H fL
(80.0-94.0)
MCH 37.7 H pg
(27.0-31.0)
RDW 15.4 H %
(11.5-14.5)
Absolute Monos (auto) 0.7 H 10^3/uL
(0.1-0.6)
Lymphocytes % 14.6 L %
(20.5-51.1)
Eosinophils % 6.4 H %
(0-6)
BUN 34 H mg/dl
(9-20)
Glucose 194 H mg/dl
(70-99)
10/24/24 14:57
10/24/24 14:57
Vital Signs
Initial and Last Documented VS:
Initial Vital Signs
Temp Pulse Resp BP Pulse Ox
36.6 C 92 20 137/93 94
10/24/24 14:50 10/24/24 14:50 10/24/24 14:50 10/24/24 14:50 10/24/24 14:50
Last Documented Vital Signs
Temp Pulse Resp BP Pulse Ox
36.6 C 82 17 141/88 99
10/24/24 14:50 10/24/24 18:01 10/24/24 18:01 10/24/24 18:01 10/24/24 18:01
MDM/Problems Addressed
Differential Diagnosis Includes:
see MDM
MDM/Problems Addressed:
Note:
CHIEF COMPLAINT(S)
Increased pain and swelling in the groin area, difficulty walking, potential chest pain, and possible oral thrush.
HISTORY OF PRESENT ILLNESS
The patient is a 64-year-old male with a history of diabetes and hypertension who presents with increasing pain and swelling in the groin area, reported to have worsened over the past three months despite treatment with nystatin cream. The patient
describes the condition as significantly affecting mobility, noting 'I could hardly even walk anymore' and difficulty getting out of bed this morning. Additionally, the patient reports episodes of dry mouth and difficulty swallowing, which started a
few days ago and now pt cannot eat due to pain.
The patient mentioned experiencing light-headedness frequently, though this is not perceived as a recent development. The chest pain began around noon today, lasting approximately two hours, and was described as feeling 'almost like indigestion.'
The patient took a 325 mg aspirin after being advised by emergency personnel. The patients blood glucose levels have been reported as high, around 350 mg/dL, with previous readings at 180 mg/dL. Despite previous management with metformin, the
patient has not been on insulin for recent years, correlating this with employment changes.
denies fever, shortness of breath, sycope, vomiting, h/o HIV
SOCIAL DETERMINANTS AFFECTING HEALTH
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
REVIEW OF SYSTEMS
- Cardiovascular: Chest pain lasting about two hours, now resolved.
- Neurological: Frequent episodes of light-headedness.
- Endocrine: Reports high blood sugar levels.
- Musculoskeletal: Severe groin pain impacting mobility.
- Gastrointestinal: Dry mouth and difficulty swallowing.
PHYSICAL EXAM
- Integumentary: Severe fungal infection in the groin area, worsened despite treatment.
- Oral: Reports of dry mouth and potential oral thrush.
Nursing notes reviewed and vital signs reviewed.
PROBLEM LIST
Acute Problems:
- Severe groin rash potentially due to a fungal infection.
- Chest pain resembling indigestion.
- New onset of oral thrush.
Chronic Problems:
- Uncontrolled diabetes mellitus.
- Hypertension.
PLAN
1. Further evaluation of the groin infection with potential change of antifungal therapy.
2. Management of diabetes with possible reintroduction of insulin therapy.
3. Monitoring and evaluation of recent chest pain and cardiovascular risk.
4. Consider antifungal treatment for suspected oral thrush.
DIFFERENTIAL DIAGNOSIS
The Differential Diagnosis includes, in no particular order and is not limited to:
1. Fungal infection (candidiasis) in the groin.
2. Uncontrolled diabetes mellitus.
3. Hypertension-related symptoms.
4. Acute coronary syndrome.
5. Gastroesophageal reflux disease.
6. Light-headedness related to orthostatic hypotension.
7. Medication-induced side effects.
8. Peripheral artery disease.
9. Neuropathy secondary to diabetes.
10. Dehydration or electrolyte imbalance.
CARE-UPDATE
10/24/24 - 18:19
D/W ed attending and ID dr. kimble
pt has worsening intertrigo and now evidence of oral candidiasis; i wonder if his chest discomfort felt as indigestion is esohpageal candidiasis
pt qappears dehydrated
hyperglycemic
chest pain was r/o with 2 neg trop
Patient will be admitted for observation and treatment. Plan includes administration of IV fluids, initiation of IV antifungal medication, and provision of pain medication specifically for throat discomfort. Additional measures to numb the throat
will also be implemented for symptomatic relief. Patient expressed preference for an overnight stay, possibly extending to one or two nights, to manage symptoms effectively.
*Pulse Oximetry
SaO2: 99
Oxygen Mode of Delivery: Room air
Patient hypoxic: no (99)
*Critical Care Note
Total Time (30-74mins, 75-104mins- exclusive of procedures): Not Applicable
ED Attending Note
-
Portions of this chart may have been created with voice recognition software.� Occasional wrong word or��sound alike� substitutions may have occurred due to the inherent limitations of voice recognition software.
Discharge Plan
Departure
Patient Disposition: Admit
Date of Disposition: 10/24/24
Time of Disposition: 18:14
Admit to: Telemetry
Presentation/result/management discussed w/ accepting MD/DO: Hospitalist
Condition: Fair
Covid-19: Not Applicable
Discharge Problem:
Candidiasis of mouth, Candidiasis, intertrigo, Dehydration, Diabetes, Chest pain
Prescriptions:
No Action
losartan 50 mg Tablet
50 mg PO QPM
prednisone 5 mg Tablet
5 mg PO BID
acetaminophen [Tylenol Extra Strength] 500 mg Tablet
1,000 mg PO Q6HPRN PRN (Reason: mild pain)
methotrexate sodium 2.5 mg Tablet
25 mg PO WE
simvastatin 20 mg Tablet
20 mg PO QPM
metformin 1,000 mg Tablet
1,000 mg PO BID
glimepiride 4 mg Tablet
4 mg PO BID
folic acid 1 mg Tablet
1 mg PO QPM
cholecalciferol (vitamin D3) [Vitamin D3] 25 mcg (1,000 unit) Tablet
25 mcg PO DAILY
Eliquis 5 mg Tablet
5 mg PO BID
Trulicity 1.5 mg/0.5 mL Pen Injector
1.5 mg SC WE
Referrals:
Harpreet Kelsey MD [Family Provider, Internal Medicine]
Interventions
Interventions:
*Risk Screen - Suicide Last Done: 10/24/24 17:48
*General Assessment Last Done: 10/24/24 17:48
*Neglect/Abuse Screening Last Done: 10/24/24 17:48
*ED- Fall Risk Assessment Last Done: 10/24/24 17:48
*ED COVID-19 Vaccine History Last Done: 10/24/24 17:48
ED- Neurological Assessment Last Done: 10/24/24 17:44
ED- Cardiac Assessment Last Done: 10/24/24 17:44
ED Swallowing Screen Last Done: 10/24/24 17:46
Discharge Date and Time
Print Language: WELSH
--- NOTE | 2024-10-24 20:13 | HPS.HSE ---
Family Physician
-
Family Physician: Harpreet Kelsey
Chief Complaint
-
Groin Pain / Mouth Pain
History of Present Illness
Patient is a 64y M with PMH significant for DM-II, psoriatic arthritis and hypertension who presents to ED complaining of bilateral groin pain and pain with swallowing. Patient states that he initially developed some redness in the
intertriginous folds of the groin about 6 months ago. He has been applying nystatin powder for several months with no improvement in his symptoms. He states that the area has become progressively more red and painful. Some scant bloody discharge
on his garments. Malodorous discharge. He notes that symptoms are much worse on the L > R.
For the past 2-3 days, he has also noted pain with swallowing / oral pain. He denies any fevers or chills. No N/V/D. No urinary complaints.
Patient was on Enbrel x 10 years for psoriatic arthritis. He was recently changed to Tremfya and received his initial / loading dose in August.
He is also on chronic prednisone.
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
Medical History
Past Medical History
Past Medical History: Reports Other
Additional Past Medical History:
DM-II
Psoriatic Arthritis
History of Pulmonary Embolism
Hypertension
Obesity
Past Surgical History: Reports Other
Additional Past Surgical History:
Appendectomy
Hernia Repair
Bilateral Knee Arthroscopies
IVC Filter Placement
Social History
Tobacco: Former Smoker (Quit smoking in 2008. Approx 30 pack years total use.)
Alcohol: None
Drug: Marijuana (Occasional.) and IVDA (Remote h/o IVDA. Last used > 30 years ago.)
Family History
Family History: Not pertinent
Allergies / Home Medications
Allergies reflects when Allergies were last updated in [employer].
Home Medications with original date entered in [employer]
Allergy/Medication List:
Allergies
Allergy/AdvReac Type Severity Reaction Status Date / Time
nut - unspecified Allergy Severe Anaphylaxis Verified 10/24/24 14:53
dapagliflozin (From [facility]) Allergy Unknown Verified 10/24/24 14:53
Penicillins Allergy Unknown Verified 10/24/24 14:53
Home Medications
cholecalciferol (vitamin D3) 25 mcg (1,000 unit) tablet (Vitamin D3) 25 mcg PO DAILY Supplement 03/18/24
folic acid 1 mg tablet 1 mg PO QPM Supplement 03/18/24
glimepiride 4 mg tablet 4 mg PO BID Diabetes 03/18/24
losartan 50 mg tablet 50 mg PO QPM Blood Pressure 03/18/24
methotrexate sodium 2.5 mg tablet 25 mg PO WE HEP B 03/18/24
prednisone 5 mg tablet 5 mg PO BID HEP B 03/18/24
simvastatin 20 mg tablet 20 mg PO QPM High Cholesterol 03/18/24
ascorbic acid (vitamin C) 500 mg tablet (Vitamin C) 500 mg PO DAILY 10/24/24
cinnamon bark 500 mg capsule (Cinnamon) 500 mg PO DAILY 10/24/24
guselkumab 200 mg/2 mL subcutaneous syringe (Tremfya) 200 mg SC Q8W 10/24/24
metformin 500 mg tablet,extended release 24 hr 1,000 mg PO BID 10/24/24
therapeutic multivitamin 1 tab PO DAILY 10/24/24
Review of Systems
-
History Source: Patient
A 12 point ROS was completed and negative except as noted: Yes
Constitutional: Reports Fatigue; Denies Fever or Chills
EENT: Reports Sore Throat and Mouth Pain; Denies Runny Nose
Respiratory: Denies Cough or Trouble Breathing
Cardiac: Reports Chest Pain; Denies Diaphoresis, Palpitations or Syncope
Abdomen/GI: Denies Abdominal Pain, Nausea, Vomiting or Diarrhea
: Denies Dysuria, Frequency or Flank Pain
Musculoskeletal: Denies Joint Pain or Edema
Skin: Reports Other (Pain, redness, bleeding / discharge from groin areas.)
Neurological: Denies Dizzy or Headache
Physical Exam
Vital Signs
Vital Signs
Temp Pulse Resp BP Pulse Ox
97.9 F 81 13 130/74 95
10/24/24 14:50 10/24/24 19:30 10/24/24 19:30 10/24/24 19:00 10/24/24 19:30
Physical Exam
General: Other (Pale, obese 64y M in mild distress due to pain.)
HEENT: Other (Posterior oropharyngeal erythema / patchy. Nodular appearance to uvula. )
Respiratory: Clear; No Wheezes, Rales or Rhonchi
Cardiac: S1/S2 and Regular Rhythm; No Murmur
GI: Soft, Non Tender, Non Distended, Normal Bowel Sounds and Other (Obese)
Musculoskeletal: No Clubbing, No Cyanosis and No Edema
Skin: Other (Erythema and areas of skin breakdown in bilateral inguinal areas - L>R. Malodorous discharge with areas of bleeding / skin breakdown - including the scrotum. Does not appear indurated / cellulitic / gangrenous.)
Neuro: AO x 3
Laboratory Results
-
10/24/24 14:57
10/24/24 14:57
Laboratory Results
Total Bilirubin 1.2 mg/dl (0.2-1.3) 10/24/24 14:57
AST 32 U/L (17-59) 10/24/24 14:57
ALT 38 U/L (0-50) 10/24/24 14:57
Alkaline Phosphatase 83 U/L (38-126) 10/24/24 14:57
Troponin I < 0.012 ng/ml 10/24/24 18:27
Impression/Plan
-
A/P: Patient is a 64y M with PMH significant for DM-II and psoriatic arthritis on immunosuppressive therapy who presents to ED complaining of severe groin intertrigo and mouth pain / painful swallowing.
Severe Intertrigo / Tinea Corporis
Oral / Esophageal Thrush
- Admit for further evaluation and treatment.
- Area does not appear gangrenous.
- IV fluconazole.
- ID evaluation for additional recommendations.
- Wound Care eval for local care recommendations.
- Supportive care / pain control.
- Check HIV status.
- Follow for any fever or other / new symptoms.
DM-II
- Stable. Hold PO medications acutely.
- Follow glucose and cover with SSI as needed.
- Update A1C.
- Needs optimal glycemic control for infection healing / prevention.
Psoriatic Arthritis
- No current complaints of joint pains / inflammation / etc.
- s/p initial / loading dose of Tremfya about one month ago.
- Hold further immunosuppressants including MTX for now.
- Will continue low dose prednisone without changes for now.
Benign Hypertension
- Stable. Continue losartan.
Obesity due to excess calories
- Affects all aspects of care and specifically risks / complications of intertriginous candidiasis.
- Encourage healthy diet and increased activity with goal of weight loss.
History of Pulmonary Embolism
DVT Prophylaxis
- Lovenox. Has IVC Filter in place (2008).
Code Status: Full
[2024-10-24 21:46] VITALS: BMI 36.7
[2024-10-24 22:14] VITALS: BP 130/87
--- NOTE | 2024-10-24 22:14 | PTCARENOTE ---
Pt arrived onto floor @2214. Pt AAOx3 and a stand and pivot to the bed. Pt with no complaints of SOB at this time. Pt oriented to room and call horta; will continue to monitor
[2024-10-24] MEDS: DELTASONE 5 MG PO (22:33)
[2024-10-24] MEDS: DIFLUCAN 400 MG IV (23:02)
[2024-10-25 06:00] VITALS: BMI 36.7
[2024-10-25 07:00] VITALS: BP 113/81
[2024-10-25 07:19] LABS: Glucose - Point of Care 206 mg/dl (70-99)
[2024-10-25] MEDS: NOVOLOG FLEXPEN-LOW RESISTANCE 2 UNITS SC (07:28)
[2024-10-25] MEDS: MAGIC OR MIRACLE MOUTHWASH 5 ML PO (07:29)
[2024-10-25] MEDS: PROTONIX IV 40 MG IV (07:30)
[2024-10-25] MEDS: DELTASONE 5 MG PO ×2 (07:30→20:23)
[2024-10-25] MEDS: NSS (PRESERVATIVE FREE) 10 ML IV (07:30)
[2024-10-25 08:16] LABS: Hematocrit 36.1 % (39.0-52.0); Hemoglobin 12.8 g/dL (13.0-18.0); Mean Corp Hgb Conc. 35.5 g/dL (33.0-37.0); Mean Corpuscular Volume 107.4 fL (80.0-94.0); Platelet Count 143 10^3/uL (130-400); Red Cell Dist. Width 15.3 % (11.5-14.5)
[2024-10-25 09:11] LABS: Blood Urea Nitrogen 27 mg/dl (9-20); Calcium 8.9 mg/dl (8.4-10.2); Carbon Dioxide 21 mmol/L (22-30); Chloride 110 mmol/L (98-107); Estimated Creatinine Clearance 107 ml/min; Glucose 184 mg/dl (70-99); Potassium 4.3 mmol/L (3.5-5.1); Sodium 140 mmol/L (135-145); eGFR > 60.00
[2024-10-25 10:13] LABS: Folate 7.1 ng/ml (2.76-20); Vitamin B12 879 pg/ml (239-931)
[2024-10-25 10:49] LABS: Glycohemoglobin (HgbA1c) 10.6 % (4.0-5.6)
--- NOTE | 2024-10-25 10:50 | WOUNDNOTE ---
RIGHT UPPER INNER THIGH
--- NOTE | 2024-10-25 10:55 | WOUNDNOTE ---
WO RN note: Patient admitted with candidiasis of mouth, intertrigo and dehydration.
See H&P for complete history. lives in a rented room by self.
PMH: Patient is a 64y M with PMH significant for DM-II, psoriatic arthritis and hypertension who presents to ED complaining of bilateral groin pain and pain with swallowing.
Wound Location and type/assessment: Patient admitted with: red raw yeasty appearing skin breakdown on scrotum, groin, buttocks, gluteal cleft and R medial thigh. Patient admitted to poor hygiene. He also stated that he has used fungal powder in the
past and it has not worked for him. R medial thigh with open blister, base pink, not indurated and serous drainage. Heels are intact, L lower lateral leg with healing skin tear, banged leg on furniture he states. Patient able to turn to sides on
own. Patient states he hasn't been walking much lately, sits allot.
Appetite: Fair, on clears.
Pressure redistribution devices in place: On Accumax, turns self. Air cushion when sitting, pillow under calves.
Plan: silicone foam applied to R lower leg and gluteal cleft. Adaptic and silicone foam to R medial thigh. Soaked scrotum and groin with Vashe soaked non woven gauze. Teaching done with patient on how to do, dry area then apply barrier cream twice
a day and prn soilage. Will confirm orders with hospitalist and updated nurse Alena.
Updated care plan and will follow as needed.
Note to case management of equipment requested for discharge: none
[2024-10-25 11:09] LABS: Glucose - Point of Care 184 mg/dl (70-99)
--- NOTE | 2024-10-25 11:49 | CON.ID ---
Consultation
-
Date/Time Consultation Requested: October 24, 20246
Date/Time Consultation Performed: October 25, 2024 1150
Requesting Provider: Dr. Graeme Valles
Performing Provider: Dr. Moira Garza
Reason for Consultation: Severe intertrigo/esophageal candidiasis
Chief Complaint / Past History
Chief Complaint
Groin rash and painful swallowing
History of Present Illness
64 year old male with obesity, DM2, psoriatic arthritis on biologic who presented to ED 10/24 due to worsening bilateral inguinal rash and pain with swallowing. He reports he has nonpruritic rash for several months, left groin worse than the right.
He applied topical antifungal powder/ointment without relief. The rash progressively got worse and very uncomfortable. Sometimes it will bleed. Over the past 3 days, he developed throat pain with difficulty swallowing due to pain. No fevers or
chills. He states his diabetes is not under control. He is on prednisone 10 mg a day for psoriatic arthritis. Previously he was on Enbrel and recently changed back to Tremfya. He has had Tremfya in the past without side effects. Annual TB
screening negative. He has lived in the [facility] all his life. In the ER, he is afebrile. He was started on IV fluconazole 400 mg every 24 hours last night.
Past History
Additional Past Medical History:
Diabetes mellitus type 2
Hypertension
Psoriatic arthritis on Enbrel then Tremfya, prednisone 5mg bid
Obesity BMI 37
PE status post IVC filter placement
Appendectomy
Hernia repair
Arthroscopic surgeries of bilateral knees
Allergy History:
nut - unspecified Allergy (Severe, Verified 10/24/24 14:53)
Anaphylaxis
dapagliflozin (From [facility]) Allergy (Verified 10/24/24 14:53)
Unknown
Penicillins Allergy (Verified 10/24/24 14:53)
Unknown
Medications Reviewed: Yes
Current Antibiotics:
Fluconazole 400 mg IV every 24 hours
Social History
Tobacco: Former Smoker
Alcohol: None
Drug: Former User
Employment: Not Employed (Recently lost his job. )
Family History
Family History: Not Pertinent
Review of Systems
Review of Systems
General: Negative Fever, Chills or Change in Appetite
HEENT: Pharyngitis; Negative Sinus Problems or Headache
Cardiovascular: Negative Chest Pain, Dyspnea or Edema
Respiratory: Negative Dyspnea or Cough
Gasteroenterology: Negative Nausea or Vomiting
Genital / Urological: Negative Dysuria or Flank Pain
Endocrine: Negative Weakness
Neurological: Negative Dizziness
All systems: All other systems were reviewed and were negative
Vital Signs
Temp Pulse Resp BP Pulse Ox
97.9 F 72 18 113/81 99
10/25/24 07:00 10/25/24 07:00 10/25/24 07:00 10/25/24 07:00 10/25/24 07:30
Physical Exam
Physical Exam
Constitutional: No Acute Distress, Comfortable and Obese
Head: Other (No frontal or maxillary sinus tenderness)
Eyes: No Conjunctival Hemorrhage and Sclera Anicteric
Pharynx: Erythema (soft palate and pharynx with petechical erythema)
Cardiovascular: Regular Rate and S1/S2
Pulmonary: Clear
Gastrointestinal: Soft, Non Tender, Non Distended and Normal Bowel Sounds
Genito-Urinary: Negative CVA Tenderness
Extremities: Venous Insufficiency (BLE); Negative Edema
Skin: Rash (Left inguinal: extensive erythematous and white patch. Right inner thigh pink patch with central skin erosion)
Neurological: AO x 3
Lab / Diagnostic Study Results
10/25/24 07:55
10/25/24 07:55
Abs Immat Gran (auto) 0.0 10^3/uL (0-0.05) 10/24/24 14:57
Absolute Neuts (auto) 5.5 10^3/uL (1.4-6.5) 10/24/24 14:57
Absolute Lymphs (auto) 1.2 10^3/uL (1.2-3.4) 10/24/24 14:57
Absolute Monos (auto) 0.7 10^3/uL (0.1-0.6) H 10/24/24 14:57
Absolute Basos (auto) 0.1 10^3/uL (0-0.2) 10/24/24 14:57
Immature Gran % 0.4 % (0-0.5) 10/24/24 14:57
Neutrophils % 69.4 % (42.2-75.2) 10/24/24 14:57
Lymphocytes % 14.6 % (20.5-51.1) L 10/24/24 14:57
Monocytes % 8.4 % (1.7-9.3) 10/24/24 14:57
Eosinophils % 6.4 % (0-6) H 10/24/24 14:57
Basophils % 0.8 % (0-2) 10/24/24 14:57
Microbiology Results
10/24/24 CXR: No acute cardiopulmonary process.
Assessment / Plan
# L> R inguinal candidiasis
# Probable pharyngeal/esophageal candidiasis
# Uncontrolled DM, A1c 10.6
# Psoriatic arthritis on prednisone 10mg/d and biologic
- Local wound care to inguinal areas.
- Agree with IV fluconazole.
- Agree with HIV screening.
- Monitor for odynophagia response to fluconazole.
- Recommend tight glucose controle.
Care Review
Plan reviewed with: Physician (Dr. Guillermo and team. )
[2024-10-25] MEDS: NOVOLOG FLEXPEN-LOW RESISTANCE 1 UNITS SC ×2 (12:01→17:31)
--- NOTE | 2024-10-25 14:15 | PN.DE.MGMTRT ---
Insulin Management
- -
10/25/2024 Diabetes Management Consult
Patient admitted 10/24 with c/o feeling dizzy, groin and mouth pain - severe intertrigo, esophageal candidiasis. PMH diabetes, psoriatic arthritis, HTN, pain redness in groin ~ 6 months. Prior to admission was taking metformin 1000 mg BID,
glimepiride 4 mg BID. A1C 10.6%, cr 1, eGFR > 60.
Patient is awake alert and oriented able to discuss diabetes care. Has had diabetes ~ 20 years, follows with primary doctor for diabetes care. Has glucose monitor but states strips are too expensive. Recommended obtaining Reli-On glucose monitor
from [facility] as strips are much less expensive.
Glucose fasting 206, pre lunch 184. Will start HS lantus 14 units with 4 units novolog AC. Discussed with patient he is receptive.
Discussed with nurse.
Will follow
Diabetes History
- -
Type of Diabetes: 2
Pre-Admission Diabetes Regimen
10/24/24 10/25/24
14:57 07:55
Creatinine 1.0 1.0
Lab Results
Hemoglobin A1c 10.6 % (4.0-5.6) H 10/25/24 07:55
Insulin Pump Settings
IP Diabetes Regimen
10/24/24 10/25/24 10/25/24
14:57 07:17 07:55
Glucose 194 H 184 H
POC Glucose 206 H
10/25/24
11:07
Glucose
POC Glucose 184 H
Patient Education
[2024-10-25 15:00] VITALS: BP 137/88
[2024-10-25 15:59] LABS: Hepatitis C Antibody Negative (Negative)
[2024-10-25] MEDS: MYCELEX TROCHE PO (16:21)
--- NOTE | 2024-10-25 16:23 | CM ---
Patient seen at bedside with physicians on . Patient stated that he had not been doing well with his personal hygene or DM care. Patient stated that he rents a room and a bathroom with 16 steps to enter. Patient stated that he [facility] in [facility] and that his PCP is Dr. Kelsey. Patient stated that he was uncertain of his discharge needs at this time. CM will continue to follow for discharge planning needs.
Plan; home with VN vs SNF
--- NOTE | 2024-10-25 16:40 | CHAP ---
Emotional and spiritual support provided as requested. Mr. Love is grieving his mother's one year ago today as well as grappling with a recent lay-off and estrangement from family. Will follow as able.
[2024-10-25 17:19] LABS: Glucose - Point of Care 183 mg/dl (70-99)
[2024-10-25] MEDS: FOLVITE 1 MG PO (17:32)
[2024-10-25] MEDS: LOVENOX 40 MG SC (17:32)
[2024-10-25] MEDS: MYCELEX TROCHE 10 MG PO ×2 (17:32→21:21)
[2024-10-25] MEDS: NOVOLOG FLEXPEN 4 UNITS SC (17:32)
[2024-10-25] MEDS: COZAAR 50 MG PO (17:32)
--- NOTE | 2024-10-25 19:38 | W.PN.HOSP.TC ---
Addendum entered and electronically signed by Janine Guillermo MD 10/26/24 07:11:
Late entry: I did see the patient 10/25/24
I saw and evaluated the patient independently. I reviewed the resident�s note and agree with findings and plan as documented by Dr. Bronson.
GENERAL: well developed, well nourished, obese male in no apparent distress
HEENT: NC/AT, + thrush, + oral ulcer on soft palate
HEART: regular rate and rhythm, +S1, +S2
LUNGS : clear to auscultation bilaterally
ABDOM: soft, nontender, nondistended, + bowel sounds
EXT: no cyanosis, clubbing, or edema
NEUROLOGIC: grossly intact
SKIN: red area under skin folds in bilateral groin--left > right
Intertrigo, tinea corporis/oral thrush/oral ulcer--likely all due to uncontrolled type 2 DM with hyperglycemia--apprec ID--cont IV fluconazole, oral mycelex, magic mouthwash--HIV pending
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
Psoriatic arthritis--tremfya, prednisone
Essential hypertension- Continue losartan
Obesity-due to excess calories- Affects all aspects of care- Advised patient to increase activity and limit calorie intake
History of pulmonary embolism--IVC filter in place
DVT proph -- lovenox
code status--Full code
Original Note:
Today's Communication/Plan
-
Continue IV fluconazole, Mycelex lozenges, Magic swish and spit, low-dose prednisone and losartan
ID consult
Wound care consult
Diabetic 17 carbohydrate diet
Assessment / Plan
Assessment / Plan
64-year-old male with past medical history of type II diabetes mellitus, Psoriatic arthritis, pulmonary embolism, obesity and hypertension who presented to the ED with complaints of bilateral groin pain and painful swallowing. Patient developed
redness in the inguinal folds about 6 months ago and has found no relief with intermittent nystatin powder use. He states that the area is progressively getting more red and painful. The left side is worse than the right. He has also noticed
bloody discharge on his garments. Patient developed painful swallowing and oral pain over the past 3 days. He admits to 'not taking care of himself.' No fever, chills, nausea, vomiting, diarrhea, urinary complaints. No history of high risk
behaviors for HIV. Patient states he has poorly controlled diabetes as his last A1c was 9.6%. He is on etanercept for the past 10 years for psoriatic arthritis. Patient recently got Tremfya as a loading dose in August 2024. He takes low-dose
prednisone.
# Intertrigo, tinea corporis
# Oral thrush
- IV fluconazole started
- Infectious disease consult
- Wound care evaluation
- Will check HIV status
- Recommended better hygiene
- Will order Mycelex lozenges, and Magic mouthwash
# Diabetes mellitus-type II
- HbA1c 10.6% on labs today
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
- 17 carb diet ordered
# Psoriatic arthritis
-Received Tremfya a month ago, no current symptoms of joint pain
-Continue low-dose prednisone
# Primary hypertension
- Continue losartan
# Obesity-due to excess calories
- Affects all aspects of care
- Advised patient to increase activity and limit calorie intake
# History of pulmonary embolism
- IVC filter in place
- DVT prophylaxis: Lovenox
Full code
PCP Dr. Harpreet Kelsey
Anticipated Discharge: 24 - 48 hours
Subjective/Interval History
-
Date of Service: October 25, 2024
64-year-old male with past medical history of type II diabetes mellitus, Psoriatic arthritis, pulmonary embolism, obesity and hypertension who presented to the ED with complaints of bilateral groin pain and painful swallowing. Patient developed
redness in the inguinal folds about 6 months ago and has found no relief with intermittent nystatin powder use. He states that the area is progressively getting more red and painful. The left side is worse than the right. He has also noticed
bloody discharge on his garments. Patient developed painful swallowing and oral pain over the past 3 days. He admits to 'not taking care of himself.' No fever, chills, nausea, vomiting, diarrhea, urinary complaints. No history of high risk
behaviors for HIV. Patient states he has poorly controlled diabetes as his last A1c was 9.6%. He is on etanercept for the past 10 years for psoriatic arthritis. Patient recently got Tremfya as a loading dose in August 2024. He takes low-dose
prednisone.
Objective Data
-
Labs:
Laboratory Results
10/25/24
07:55
WBC 7.5
Hgb 12.8 L
Hct 36.1 L
Plt Count 143
Sodium 140
Potassium 4.3
Chloride 110 H
Carbon Dioxide 21 L
BUN 27 H
Creatinine 1.0
Glucose 184 H
Calcium 8.9
Vital Signs:
Vital Signs
Temp Pulse Resp BP Pulse Ox
98.5 F 76 18 137/88 96
10/25/24 15:00 10/25/24 15:00 10/25/24 15:00 10/25/24 15:00 10/25/24 15:00
I&O
10/24/24 10/25/24 10/26/24
06:59 06:59 06:59
Intake Total 1440 / 1440
Balance 1440 / 1440
Review of Systems
-
History Source: Patient
All other systems: Reviewed and negative
Constitutional: Reports No Symptoms
EENT: Reports Mouth Pain and Other (Trouble swallowing)
Respiratory: Reports No Symptoms
Cardiac: Reports No Symptoms
Abdomen/GI: Reports No Symptoms
Breast: Reports No Symptoms
Genitourinary: Reports No Symptoms
Musculoskeletal: Reports No Symptoms
Skin: Reports Rash
Neuro: Reports No Symptoms
Endocrine: Reports No Symptoms
Hematologic / Lymphatic: Reports No Symptoms
Allergy / Immunology: Reports No Symptoms
Physical Exam
-
General: No Apparent Distress, Comfortable and Obese
HEENT: Normocephalic, Atraumatic, Moist Mucous Membranes, Pharyngeal Erythema and Other (Aphthous ulcer present posterior oropharyngeal area, white patches over surface of oral mucosa)
Respiratory: Clear to Auscultation
Cardiac: Regular Rhythm and S1/S2
Breast: Deferred by me
GI: Soft, Nontender, Nondistended and Normal Bowel Sounds
Rectal: Deferred by Provider
Genito-urinary: No Costovertebral Tender
Musculoskeletal: No Clubbing, No Cyanosis, No Edema and Other (Bilateral lower extremities have brown discoloration)
Skin: Warm and Other (Bloody discharge noted over garment. Erythema over bilateral inguinal areas but more pronounced on the left side with scrotal involvement. Malodorous discharge with some bleeding noted and skin breakdown. No signs of
cellulitis or gangrene. Tender to touch.)
Hematologic / Lymphatic: No Lymphadenopathy
Psych: Calm
Data Reviewed
-
Labs: Labs Reviewed by me and Discussed with Physician
Old Records: Reviewed
[2024-10-25 21:02] LABS: Glucose - Point of Care 165 mg/dl (70-99)
[2024-10-25] MEDS: DIFLUCAN 400 MG 200 IV (21:20)
[2024-10-25] MEDS: LANTUS 0.14 UNITS SC (21:21)
[2024-10-25 23:00] VITALS: BP 147/79
[2024-10-25] MEDS: TYLENOL 650 MG PO (23:51)
[2024-10-26 06:00] VITALS: BMI 36.5
[2024-10-26 07:08] LABS: Hematocrit 36.8 % (39.0-52.0); Hemoglobin 12.7 g/dL (13.0-18.0); Mean Corp Hgb Conc. 34.5 g/dL (33.0-37.0); Mean Corpuscular Volume 109.5 fL (80.0-94.0); Nucleated Red Blood Cells % 0 % (-); Platelet Count 157 10^3/uL (130-400); Red Cell Dist. Width 15.6 % (11.5-14.5)
[2024-10-26 07:11] LABS: Glucose - Point of Care 191 mg/dl (70-99)
[2024-10-26 07:26] VITALS: BP 138/80
--- NOTE | 2024-10-26 07:39 | PN.DE.MGMTRT ---
Insulin Management
- -
10/26/2024 Diabetes Management Consult Follow up
Patient admitted 10/24 with c/o feeling dizzy, groin and mouth pain - severe intertrigo, esophageal candidiasis. PMH diabetes, psoriatic arthritis, HTN, pain redness in groin ~ 6 months. Prior to admission was taking metformin 1000 mg BID,
glimepiride 4 mg BID. A1C 10.6%, cr 1, eGFR > 60.
Patient is awake alert and oriented able to discuss diabetes care. Has had diabetes ~ 20 years, follows with primary doctor for diabetes care. Has glucose monitor but states strips are too expensive. Recommended obtaining Reli-On glucose monitor
from [facility] as strips are much less expensive.
Discussed with patient importance of glucose control, will need to start insulin, he is receptive. Received HS lantus 14 units with 4 units novolog AC.
Fasting glucose 191. Will increase HS lantus to 18 units and continue AC novolog 4 units with low corrective insulin.
Discussed with nurse.
Will follow
Diabetes History
- -
Type of Diabetes: 2 requiring insulin
Pre-Admission Diabetes Regimen
10/25/24
07:55
Creatinine 1.0
Lab Results
Hemoglobin A1c 10.6 % (4.0-5.6) H 10/25/24 07:55
Insulin Pump Settings
IP Diabetes Regimen
10/25/24 10/25/24 10/25/24
07:55 11:07 17:18
Glucose 184 H
POC Glucose 184 H 183 H
10/25/24 10/26/24
21:01 07:09
Glucose
POC Glucose 165 H 191 H
Meal type: Dinner
Meal type: Lunch
Meal type: Breakfast
Amount consumed: 100%
Amount consumed: 100%
Amount consumed: 50%
Patient Education
[2024-10-26 08:09] LABS: ALT (SGPT) 31 U/L (0-50); AST (SGOT) 26 U/L (17-59); Albumin 3.8 g/dl (3.5-5.0); Alkaline Phosphatase 74 U/L (38-126); Blood Urea Nitrogen 24 mg/dl (9-20); Calcium 9.2 mg/dl (8.4-10.2); Carbon Dioxide 23 mmol/L (22-30); Chloride 110 mmol/L (98-107); Estimated Creatinine Clearance 107 ml/min; Glucose 185 mg/dl (70-99); Potassium 4.4 mmol/L (3.5-5.1); Sodium 138 mmol/L (135-145); Total Protein 6.5 g/dl (6.3-8.2); eGFR > 60.00
[2024-10-26] MEDS: NOVOLOG FLEXPEN 4 UNITS SC (08:25)
[2024-10-26] MEDS: NOVOLOG FLEXPEN-LOW RESISTANCE 1 UNITS SC ×2 (08:25→16:59)
[2024-10-26] MEDS: MYCELEX TROCHE 10 MG PO ×5 (08:26→21:51)
[2024-10-26] MEDS: DELTASONE 5 MG PO ×2 (08:26→20:27)
[2024-10-26] MEDS: PROTONIX IV 40 MG IV (08:27)
[2024-10-26] MEDS: NSS (PRESERVATIVE FREE) 10 ML IV (08:28)
--- NOTE | 2024-10-26 09:54 | W.PN.HOSP.TC ---
Addendum entered and electronically signed by Janine Guillermo MD 10/26/24 14:17:
I saw and evaluated the patient independently. I reviewed the resident�s note and agree with findings and plan as documented by Dr. Bronson.
GENERAL: well developed, well nourished, obese male in no apparent distress
HEENT: NC/AT, thrush resolved, + oral ulcer on soft palate
HEART: regular rate and rhythm, +S1, +S2
LUNGS : clear to auscultation bilaterally
ABDOM: soft, nontender, nondistended, + bowel sounds
EXT: no cyanosis, clubbing, or edema
NEUROLOGIC: grossly intact
SKIN: red area under skin folds in bilateral groin--left > right
Intertrigo, tinea corporis/oral thrush/oral ulcer--likely all due to uncontrolled type 2 DM with hyperglycemia--apprec ID--cont IV fluconazole, oral mycelex, magic mouthwash--HIV pending
Diabetes mellitus-type II--uncontrolled--HGB A1C 10.6--cont insulin, novolog with meals and lantus-- apprec DM MANAGING MANAGER
Psoriatic arthritis--tremfya, prednisone
Essential hypertension- Continue losartan
Obesity-due to excess calories--Affects all aspects of care--Advised patient to increase activity and limit calorie intake
History of pulmonary embolism--IVC filter in place
DVT proph -- lovenox
code status--Full code
Original Note:
Today's Communication/Plan
-
Continue IV fluconazole, Mycelex lozenges, Magic mouthwash
Monitor blood glucose -DM MANAGING MANAGER following
Continue wound care
HIV pending
Assessment / Plan
Assessment / Plan
64-year-old male with past medical history of type II diabetes mellitus, Psoriatic arthritis, pulmonary embolism, obesity and hypertension who presented to the ED with complaints of bilateral groin pain and painful swallowing. Patient developed
redness in the inguinal folds about 6 months ago and has found no relief with intermittent nystatin powder use. He states that the area is progressively getting more red and painful. The left side is worse than the right. He has also noticed
bloody discharge on his garments. Patient developed painful swallowing and oral pain over the past 3 days. He admits to 'not taking care of himself.' No fever, chills, nausea, vomiting, diarrhea, urinary complaints. No history of high risk
behaviors for HIV. Patient states he has poorly controlled diabetes as his last A1c was 9.6%. He is on etanercept for the past 10 years for psoriatic arthritis. Patient recently got Tremfya as a loading dose in August 2024. He takes low-dose
prednisone.
# Intertrigo, tinea corporis
# Oral thrush -likely due to uncontrolled diabetes mellitus
- IV fluconazole continue per ID consult
-Continue Mycelex lozenges and Magic mouthwash
- Wound care evaluation
- HIV status pending
- Recommended better hygiene
# Diabetes mellitus-type II
- HbA1c 10.6%
- Diabetes consult with MANAGING MANAGER:
- 17 carb diet ordered
- DM MANAGING MANAGER consult: Given HS lantus 14 units with 4 units novolog AC yesterday, with fasting glucose 191. Increase to HS lantus to 18 units and continue AC novolog 4 units with low corrective insulin.
# Psoriatic arthritis
-Received Tremfya a month ago, no current symptoms of joint pain
-Continue low-dose prednisone
# Primary hypertension
- Continue losartan
# Obesity-due to excess calories
- Affects all aspects of care
- Advised patient to increase activity and limit calorie intake
# History of pulmonary embolism
- IVC filter in place
- DVT prophylaxis: Lovenox
Full code
PCP Dr. Harpreet Kelsey
Anticipated Discharge: 24 - 48 hours
Subjective/Interval History
-
Date of Service: October 26, 2024
64-year-old male with past medical history of type II diabetes mellitus, Psoriatic arthritis, pulmonary embolism, obesity and hypertension who presented to the ED with complaints of bilateral groin pain and painful swallowing. Patient developed
redness in the inguinal folds about 6 months ago and has found no relief with intermittent nystatin powder use. He states that the area is progressively getting more red and painful (L>R). He has also noticed bloody discharge on his garments.
Patient developed painful swallowing and oral pain over the past 4 days. He admits to 'not taking care of himself.' No fever, chills, nausea, vomiting, diarrhea, urinary complaints. No history of high risk behaviors for HIV. Patient states he has
poorly controlled diabetes despite being compliant to his diabetic medications. Patient states he developed a headache last night and at 6 AM this morning, both relieved with Tylenol. Patient states that he was given gauze to put over the rash by
wound care, 'and some skin got ripped off when he pulled the this morning.' The nurse gave him nonadherent pads to use instead. He states he still has oral pain but his painful swelling has slightly improved since yesterday.
Additional history obtained: He was recently laid off and it was his mother's first anniversary yesterday. The circumstances may have contributed to the patient's current hospital visit.
Objective Data
-
Labs:
Laboratory Results
10/26/24
06:38
WBC 7.2
Hgb 12.7 L
Hct 36.8 L
Plt Count 157
Sodium 138
Potassium 4.4
Chloride 110 H
Carbon Dioxide 23
BUN 24 H
Creatinine 1.0
Glucose 185 H
Calcium 9.2
Total Bilirubin 0.9
AST 26
ALT 31
Alkaline Phosphatase 74
Vital Signs:
Vital Signs
Temp Pulse Resp BP Pulse Ox
97.6 F 70 18 138/80 95
10/26/24 07:26 10/26/24 07:26 10/26/24 07:26 10/26/24 07:26 10/26/24 07:26
I&O
10/25/24 10/26/24 10/27/24
06:59 06:59 06:59
Intake Total 1679
Balance 1679
Review of Systems
-
History Source: Patient
All other systems: Reviewed and negative
Constitutional: Reports No Symptoms
EENT: Reports Mouth Pain
Respiratory: Reports No Symptoms
Cardiac: Reports No Symptoms
Abdomen/GI: Reports No Symptoms
Breast: Reports No Symptoms
Genitourinary: Reports No Symptoms
Musculoskeletal: Reports No Symptoms
Skin: Reports Rash
Neuro: Reports No Symptoms
Endocrine: Reports No Symptoms
Hematologic / Lymphatic: Reports No Symptoms
Allergy / Immunology: Reports No Symptoms
Physical Exam
-
General: Obese
HEENT: Normocephalic, Atraumatic, Moist Mucous Membranes, Thrush and Pharyngeal Erythema (With an aphthous ulcer)
Respiratory: Clear to Auscultation
Cardiac: Regular Rhythm and S1/S2
Breast: Deferred by me
GI: Soft, Nontender, Nondistended and Normal Bowel Sounds
Rectal: Deferred by Provider
Genito-urinary: No Costovertebral Tender
Musculoskeletal: No Clubbing, No Cyanosis and No Edema
Skin: Rash (Bloody discharge noted over garment. Erythema over bilateral inguinal areas but more pronounced on the left side with scrotal involvement. Malodorous discharge with some bleeding noted and skin breakdown. No signs of cellulitis or
gangrene. Tenderness to palpation.)
Neuro: AO x 3
Hematologic / Lymphatic: No Lymphadenopathy
Psych: Calm
Data Reviewed
-
Labs: Labs Reviewed by me and Discussed with Physician
Old Records: Reviewed
--- NOTE | 2024-10-26 09:59 | W.PN.ID1 ---
Date of Service
Date of Service: October 26, 2024
Today's Communication
Continue fluconazole.
Assessment / Plan
# L> R inguinal candidiasis
# Probable pharyngeal/esophageal candidiasis
# Uncontrolled DM, A1c 10.6
# Psoriatic arthritis on prednisone 10mg/d and biologic
- Local wound care to inguinal areas.
-Swab pharynx for LYLE prep and rapid group A strep.
- Continue IV fluconazole.
- HIV screening pending
- Recommend tight glucose control.
# Conditions prior to admission
Diabetes mellitus type 2
Hypertension
Psoriatic arthritis on Enbrel then Tremfya, prednisone 5mg bid
Obesity BMI 37
PE status post IVC filter placement
Appendectomy
Hernia repair
Arthroscopic surgeries of bilateral knees
Chief Complaint
-: Other (Candidiasis)
Subjective / Review of Systems
Throat pain somewhat better. The orange juice did not help.
Vital Signs / Physical Exam
Vital Signs
Vital Signs
Temp Pulse Resp BP Pulse Ox
97.6 F 70 18 138/80 95
10/26/24 07:26 10/26/24 07:26 10/26/24 07:26 10/26/24 07:26 10/26/24 07:26
Physical Exam
Constitutional: No Acute Distress and Comfortable
Oropharyngeal: Erythema (soft palate) and Exudate (white exudate/patch on uvula, pharynx)
Cardiovascular: Regular Rate and S1/S2
Pulmonary: Clear
Gastrointestinal: Soft, Non Tender, Non Distended and Normal Bowel Sounds
Genito-Urinary: Negative CVA Tenderness
Wound: Other (left inguinal stable rash)
Neurological: AO x 3
Objective Data
Lab Data
Lab Results
10/26/24 06:38
10/26/24 06:38
Estimated Creat Clear 107 ml/min 10/26/24 06:38
Total Bilirubin 0.9 mg/dl (0.2-1.3) 10/26/24 06:38
AST 26 U/L (17-59) 10/26/24 06:38
ALT 31 U/L (0-50) 10/26/24 06:38
Alkaline Phosphatase 74 U/L (38-126) 10/26/24 06:38
Most recent labs reviewed.
10/24/24 CXR: No acute cardiopulmonary process.
Care Review
Plan reviewed with: Nurse (Mara Anaya)
--- NOTE | 2024-10-26 10:57 | PTCARENOTE ---
I met with Judd to review diabetes management. 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 States he got off track managing his health 4 years ago after
his mother .
States he sees Dr. Harpreet Mijares in [place], takes Metformin ER 1000 mg BID and Glimepiride 4 mg BID. Has a working monitor at home and test strips are $1 each. He checked prior to hospital stay and glucose was 371. Declined demonstration of
glucometer, provided Contour Next glucometer and sample kit and directed him to [facility] for less expensive glucometer, test strips, and lancets.
I educated on physiology of T2D, organ damage, managing with medications, monitoring BG, nutrition, and activity . I reinforced signs of hyperglycemia, hypoglycemia and hypoglycemia protocol; BS parameters and recommended HbA1c goals. Provided
written material on glucometer, CGM, glucose tracker, medic alert bracelet and outpatient DSME program. He states he has a new insurance company effective 10/17/2024: [id number]. He contacted them during our visit and confirmed he
has prescription insurance including coverage for insulin.
I educated and demonstrated on insulin injection technique, timing, and storage. Discussed long and short acting insulin; onset/peak/duration, and encouraged Judd to administer his own injections with RN supervision while admitted. Discussed
normal target glucose ranges and a monitoring schedule 15 minutes before each meal when prescribed Novolog, and preprandial AM and/or bedtime as recommended by MD. Discussed with RN and provided needles for use.
Encouraged patient to follow up with his PCP for post d/c appointment and to monitor medication and blood glucose levels. Provided list of endocrinologists if desired, to contact insurance company to verify in network status. Patient verbalized
understanding.
[2024-10-26 11:18] LABS: Glucose - Point of Care 217 mg/dl (70-99)
[2024-10-26] MEDS: NOVOLOG FLEXPEN 7 UNITS SC ×2 (11:40→16:59)
[2024-10-26] MEDS: NOVOLOG FLEXPEN-LOW RESISTANCE 2 UNITS SC (11:40)
[2024-10-26 15:30] VITALS: BP 135/76
[2024-10-26] MEDS: TYLENOL 650 MG PO (15:34)
[2024-10-26 16:22] LABS: Glucose - Point of Care 163 mg/dl (70-99)
--- NOTE | 2024-10-26 16:39 | CM ---
Patient seen at bedside today with physicians. Patient plan is SNF pending therapy recommendations. CM awaiting therapy recommendations. Patient states he has commercial insurances and CM called to [facility] for assessment to determine if placement at
SNF would be covered. CM will continue to follow for discharge planning needs.
Plan; SNF vs home with VN; watch for therapy recommendations
[2024-10-26] MEDS: FOLVITE 1 MG PO (17:04)
[2024-10-26] MEDS: COZAAR 50 MG PO (17:04)
[2024-10-26] MEDS: LOVENOX 40 MG SC (17:05)
[2024-10-26 21:33] LABS: Glucose - Point of Care 165 mg/dl (70-99)
[2024-10-26] MEDS: LANTUS 0.18 UNITS SC (21:50)
[2024-10-26] MEDS: DIFLUCAN 400 MG 200 IV (21:50)
[2024-10-26 23:00] VITALS: BP 109/73; BP 130/77; BP 133/81; PULSE 79; PULSE 80
[2024-10-27 04:38] VITALS: BMI 36.6
[2024-10-27 07:00] VITALS: BP 126/77
--- NOTE | 2024-10-27 07:20 | PN.DE.MGMTRT ---
Insulin Management
- -
10/27/2024 Diabetes Management Consult Follow up
Patient admitted 10/24 with c/o feeling dizzy, groin and mouth pain - severe intertrigo, esophageal candidiasis. PMH diabetes, psoriatic arthritis, HTN, pain redness in groin ~ 6 months. Prior to admission was taking metformin 1000 mg BID,
glimepiride 4 mg BID. A1C 10.6%, cr 1, eGFR > 60.
Patient is awake alert and oriented able to discuss diabetes care. Has had diabetes ~ 20 years, follows with primary doctor for diabetes care. Has glucose monitor but states strips are too expensive. Recommended obtaining Reli-On glucose monitor
from [facility] as strips are much less expensive.
Discussed with patient importance of glucose control, will need to start insulin, he is receptive.
Received HS lantus 18 units with 7 units novolog AC and low corrective insulin AC. Glucose improved from 200's to 163 pre dinner and 165 @ HS.
Fasting glucose 188. Will increase HS lantus 20 units and AC novolog to 8 units with low corrective insulin.
Discussed with nurse.
Will follow
Diabetes History
- -
Type of Diabetes: 2 requiring insulin
Pre-Admission Diabetes Regimen
10/26/24
06:38
Creatinine 1.0
Lab Results
Hemoglobin A1c 10.6 % (4.0-5.6) H 10/25/24 07:55
Insulin Pump Settings
IP Diabetes Regimen
10/26/24 10/26/24 10/26/24
06:38 11:17 16:20
Glucose 185 H
POC Glucose 217 H 163 H
10/26/24
21:31
Glucose
POC Glucose 165 H
Meal type: Lunch
Meal type: Breakfast
Amount consumed: 90%
Amount consumed: 90%
Patient Education
[2024-10-27 07:51] LABS: Glucose - Point of Care 188 mg/dl (70-99)
[2024-10-27] MEDS: NOVOLOG FLEXPEN 7 UNITS SC ×3 (09:03→18:00)
[2024-10-27] MEDS: NOVOLOG FLEXPEN-LOW RESISTANCE 1 UNITS SC ×2 (09:03→12:34)
[2024-10-27] MEDS: DELTASONE 5 MG PO ×2 (09:04→20:59)
[2024-10-27] MEDS: NSS (PRESERVATIVE FREE) 10 ML IV (09:04)
[2024-10-27] MEDS: MYCELEX TROCHE 10 MG PO ×5 (09:04→21:16)
[2024-10-27] MEDS: PROTONIX IV 40 MG IV (09:05)
[2024-10-27 09:17] LABS: Hematocrit 40.1 % (39.0-52.0); Hemoglobin 13.5 g/dL (13.0-18.0); Mean Corp Hgb Conc. 33.7 g/dL (33.0-37.0); Mean Corpuscular Volume 112.3 fL (80.0-94.0); Platelet Count 173 10^3/uL (130-400); Red Cell Dist. Width 16.2 % (11.5-14.5)
[2024-10-27 09:48] LABS: ALT (SGPT) 30 U/L (0-50); AST (SGOT) 23 U/L (17-59); Albumin 4.4 g/dl (3.5-5.0); Alkaline Phosphatase 75 U/L (38-126); Blood Urea Nitrogen 32 mg/dl (9-20); Calcium 9.5 mg/dl (8.4-10.2); Carbon Dioxide 24 mmol/L (22-30); Chloride 108 mmol/L (98-107); Estimated Creatinine Clearance 82 ml/min; Glucose 198 mg/dl (70-99); Magnesium 1.9 mg/dl (1.6-2.3); Potassium 4.3 mmol/L (3.5-5.1); Sodium 141 mmol/L (135-145); Total Protein 7.6 g/dl (6.3-8.2); eGFR > 60.00
[2024-10-27 11:17] VITALS: BP 129/78; BP 131/82; BP 135/81; BP 141/87; PULSE 73; O2SAT 96
[2024-10-27 12:15] LABS: Glucose - Point of Care 176 mg/dl (70-99)
[2024-10-27] MEDS: NSS 250 IV (12:30)
--- NOTE | 2024-10-27 13:40 | W.PN.HOSP.TC ---
Addendum entered and electronically signed by Janine Guillermo MD 10/27/24 14:17:
I saw and evaluated the patient independently. I reviewed the resident�s note and agree with findings and plan as documented by Dr. Bronson.
GENERAL: well developed, well nourished, obese male in no apparent distress
HEENT: NC/AT, thrush resolved, + oral ulcer on soft palate
HEART: regular rate and rhythm, +S1, +S2
LUNGS : clear to auscultation bilaterally
ABDOM: soft, nontender, nondistended, + bowel sounds
EXT: no cyanosis, clubbing, or edema
NEUROLOGIC: grossly intact
SKIN: red area under skin folds in bilateral groin--left > right--improving
Intertrigo, tinea corporis/oral thrush/oral ulcer--likely all due to uncontrolled type 2 DM with hyperglycemia--apprec ID--change IV fluconazole to PO, oral mycelex, magic mouthwash--HIV negative
Diabetes mellitus-type II--uncontrolled--HGB A1C 10.6--cont insulin, novolog with meals and lantus-- apprec DM TANK TENDER
Psoriatic arthritis--tremfya, prednisone
Essential hypertension- Continue losartan
Obesity-due to excess calories--Affects all aspects of care--Advised patient to increase activity and limit calorie intake
History of pulmonary embolism--IVC filter in place
DVT proph -- lovenox
code status--Full code
Original Note:
Today's Communication/Plan
-
Continue IV fluconazole.
Appreciate ID recommendations regarding switching over to oral fluconazole.
Assessment / Plan
Assessment / Plan
64-year-old male with past medical history of type II diabetes mellitus, Psoriatic arthritis, pulmonary embolism, obesity and hypertension who presented to the ED with complaints of bilateral groin pain and painful swallowing. Patient developed
redness in the inguinal folds about 6 months ago and has found no relief with intermittent nystatin powder use. He states that the area is progressively getting more red and painful. The left side is worse than the right. He has also noticed
bloody discharge on his garments. Patient developed painful swallowing and oral pain over the past 3 days. He admits to 'not taking care of himself.' No fever, chills, nausea, vomiting, diarrhea, urinary complaints. No history of high risk
behaviors for HIV. Patient states he has poorly controlled diabetes as his last A1c was 9.6%. He is on etanercept for the past 10 years for psoriatic arthritis. Patient recently got Tremfya as a loading dose in August 2024. He takes low-dose
prednisone.
# Intertrigo, tinea corporis
# Oral thrush -likely due to uncontrolled diabetes mellitus
- IV fluconazole continued per ID consult
- Continue Mycelex lozenges and Magic mouthwash
- Wound care following
- HIV negative
- Recommended better hygiene
# Orthostatic hypotension
- Given 250 cc bolus of normal saline
- Advised to slowly rise from lying or sitting position, and staying hydrated.
- Will monitor
# Diabetes mellitus-type II
- HbA1c 10.6%
- 17 carb diet ordered
- DM TANK TENDER consult: Given HS lantus 14 units with 4 units novolog AC yesterday, with fasting glucose 191. Increase to HS lantus to 18 units and continue AC novolog 4 units with low corrective insulin.
# Psoriatic arthritis
-Received Tremfya a month ago, no current symptoms of joint pain
-Continue low-dose prednisone
# Primary hypertension
- Continue losartan
# Obesity-due to excess calories
- Affects all aspects of care
- Advised patient to increase activity and limit calorie intake
# History of pulmonary embolism
- IVC filter in place
- DVT prophylaxis: Lovenox
Full code
PCP Dr. Harpreet Kelsey
Anticipated Discharge: 24 - 48 hours
Subjective/Interval History
-
Date of Service: October 27, 2024
64-year-old male with past medical history of type II diabetes mellitus, Psoriatic arthritis, pulmonary embolism, obesity and hypertension who presented to the ED with complaints of bilateral groin pain and painful swallowing. Patient developed
redness in the inguinal folds about 6 months ago and has found no relief with intermittent nystatin powder use. He states that the area is progressively getting more red and painful (L>R). He has also noticed bloody discharge on his garments.
Patient developed painful swallowing and oral pain over the past 4 days. He admits to 'not taking care of himself.' No fever, chills, nausea, vomiting, diarrhea, urinary complaints. No history of high risk behaviors for HIV. Patient states he has
poorly controlled diabetes despite being compliant to his diabetic medications. He has been on IV fluconazole. Patient states his dysphagia is slightly improved, but is still having some pain while swallowing. He had an episode of lightheadedness
and palpitations while trying to use the bathroom yesterday. The nurse did orthostatic blood pressure on him which revealed SBP 130s while laying down and sitting, and SBP 105 when standing up. Patient also informs that he plans on joining [employer] and getting a personal counselor after being discharged home so he can take better care of himself.
Objective Data
-
Labs:
Laboratory Results
10/27/24
08:47
WBC 6.6
Hgb 13.5
Hct 40.1
Plt Count 173
Sodium 141
Potassium 4.3
Chloride 108 H
Carbon Dioxide 24
BUN 32 H
Creatinine 1.3
Glucose 198 H
Calcium 9.5
Total Bilirubin 0.8
AST 23
ALT 30
Alkaline Phosphatase 75
Vital Signs:
Vital Signs
Temp Pulse Resp BP Pulse Ox
97.8 F 87 12 126/77 97
10/27/24 07:00 10/27/24 07:00 10/27/24 07:00 10/27/24 07:00 10/27/24 07:00
I&O
10/26/24 10/27/24 10/28/24
06:59 06:59 06:59
Intake Total 1680 / 1680 1640 / 1640
Balance 1680 / 1680 1640 / 1640
Review of Systems
-
History Source: Patient
All other systems: Reviewed and negative
Constitutional: Reports No Symptoms
EENT: Reports Mouth Pain and Other (Dysphagia)
Respiratory: Reports No Symptoms
Cardiac: Reports Palpitations
Abdomen/GI: Reports No Symptoms
Breast: Reports No Symptoms
Genitourinary: Reports No Symptoms
Musculoskeletal: Reports No Symptoms
Skin: Reports Rash
Neuro: Reports Lightheadedness
Endocrine: Reports No Symptoms
Hematologic / Lymphatic: Reports No Symptoms
Allergy / Immunology: Reports No Symptoms
Physical Exam
-
General: Obese
HEENT: Normocephalic, Atraumatic, Moist Mucous Membranes, Thrush and Pharyngeal Erythema (With aphthous ulcer)
Respiratory: Clear to Auscultation
Cardiac: Regular Rhythm and S1/S2
Breast: Deferred by me
GI: Soft, Nontender, Nondistended and Normal Bowel Sounds
Rectal: Deferred by Provider
Genito-urinary: No Costovertebral Tender
Musculoskeletal: No Clubbing and No Cyanosis
Skin: Rash (Patient states erythema over bilateral inguinal areas performed pronounced on the left side, with scrotal involvement, appearing slightly better when compared to initial assessment)
Neuro: AO x 3 and Nonfocal/Grossly Intact
Hematologic / Lymphatic: No Lymphadenopathy
Psych: Calm
Data Reviewed
-
Labs: Labs Reviewed by me and Discussed with Physician
Old Records: Reviewed
--- NOTE | 2024-10-27 13:45 | VNURNOTE ---
Received referral for VN services. Per Billing bank officer, [facility]N can not accept patients insurance. CM notified.
--- NOTE | 2024-10-27 14:05 | W.PN.ID1 ---
Date of Service
Date of Service: October 27, 2024
Today's Communication
Continue fluconazole.
Assessment / Plan
# L> R inguinal candidiasis
# Probable pharyngeal/esophageal candidiasis
# Uncontrolled DM, A1c 10.6
# Psoriatic arthritis on prednisone 10mg/d and biologic
- Local wound care to inguinal areas.
-pharynx; negative rapid group A strep.
- HIV screening negative
- Continue IV fluconazole.
- When able to take po transition to po fluconazole 200mg po daily through 11/13 (21d total)
# Conditions prior to admission
Diabetes mellitus type 2
Hypertension
Psoriatic arthritis on Enbrel then Tremfya, prednisone 5mg bid
Obesity BMI 37
PE status post IVC filter placement
Appendectomy
Hernia repair
Arthroscopic surgeries of bilateral knees
Chief Complaint
-: Other (Candidiasis)
Subjective / Review of Systems
Throat still painful but better. Eating soft diet.
Vital Signs / Physical Exam
Vital Signs
Vital Signs
Temp Pulse Resp BP Pulse Ox
97.8 F 87 12 126/77 97
10/27/24 07:00 10/27/24 07:00 10/27/24 07:00 10/27/24 07:00 10/27/24 07:00
Physical Exam
Constitutional: No Acute Distress and Comfortable
Oropharyngeal: Erythema (posterior)
Cardiovascular: Regular Rate and S1/S2
Pulmonary: Clear
Gastrointestinal: Soft
Genito-Urinary: CVA Tenderness
Extremities: Negative Edema
Neurological: AO x 3
Objective Data
Lab Data
Lab Results
10/27/24 08:47
10/27/24 08:47
Estimated Creat Clear 82 ml/min 10/27/24 08:47
Total Bilirubin 0.8 mg/dl (0.2-1.3) 10/27/24 08:47
AST 23 U/L (17-59) 10/27/24 08:47
ALT 30 U/L (0-50) 10/27/24 08:47
Alkaline Phosphatase 75 U/L (38-126) 10/27/24 08:47
Most recent labs reviewed.
Micro Results:
10/26/24 11:35 Streptococcus Screen (ANITRA) - Preliminary
Throat/Pharynx Culture in Progress
Streptococcus Rapid Screen - Final
Rapid Strep Screen (Group A) Negative
10/24/24 CXR: No acute cardiopulmonary process.
[2024-10-27 15:00] VITALS: BP 125/75
[2024-10-27 16:59] LABS: Glucose - Point of Care 211 mg/dl (70-99)
--- NOTE | 2024-10-27 17:17 | CM ---
Addendum entered by Maribel Hauser 10/27/24 17:27:
[facility] also declined insurance. CM will send to additional referrals for VN.
Original Note:
Patient seen at bedside with physician on . Patient made aware that he was declined by [facility] via phone and accepted referral to [facility]. CM sent referral via all scripts and await response. CM will continue to follow for discharge planning needs.
Plan; home with po antibiotics and pending acceptance to [facility]
[2024-10-27] MEDS: NOVOLOG FLEXPEN-LOW RESISTANCE 2 UNITS SC (17:59)
[2024-10-27] MEDS: FOLVITE 1 MG PO (18:01)
[2024-10-27] MEDS: COZAAR 50 MG PO (18:01)
[2024-10-27] MEDS: LOVENOX 40 MG SC (18:01)
[2024-10-27 21:04] LABS: Glucose - Point of Care 195 mg/dl (70-99)
[2024-10-27] MEDS: DIFLUCAN 400 MG 200 IV (21:16)
[2024-10-27] MEDS: LANTUS 0.18 UNITS SC (21:31)
[2024-10-27 23:00] VITALS: BP 130/77
[2024-10-28 04:04] VITALS: BMI 37.2
[2024-10-28 07:00] VITALS: BP 118/75
[2024-10-28 08:12] LABS: Glucose - Point of Care 204 mg/dl (70-99)
[2024-10-28 10:01] LABS: Hematocrit 37.4 % (39.0-52.0); Hemoglobin 12.8 g/dL (13.0-18.0); Mean Corp Hgb Conc. 34.2 g/dL (33.0-37.0); Mean Corpuscular Volume 112.0 fL (80.0-94.0); Platelet Count 171 10^3/uL (130-400); Red Cell Dist. Width 16.0 % (11.5-14.5)
[2024-10-28] MEDS: DELTASONE 5 MG PO ×2 (10:08→21:32)
[2024-10-28] MEDS: DIFLUCAN 200 MG PO (10:09)
[2024-10-28] MEDS: PROTONIX IV 40 MG IV (10:09)
[2024-10-28] MEDS: NSS (PRESERVATIVE FREE) 10 ML IV (10:09)
[2024-10-28] MEDS: MYCELEX TROCHE 10 MG PO ×5 (10:09→21:32)
[2024-10-28 10:13] VITALS: BP 113/74; BP 115/75; BP 97/71; PULSE 106; PULSE 77; PULSE 83
--- NOTE | 2024-10-28 10:27 | W.DCSUMMARY ---
Addendum entered and electronically signed by Janine Guillermo MD 11/06/24 13:22:
Read, reviewed, and agree. See same day progress note for additional details. Time spent coordinating care, DC planning, review of DC plan of care with resident, transition of care, review of records in EMR, med rec, consults, notes, d/w
consultants, nursing, family, and CM = 35 minutes
Original Note:
Discharge Summary
Discharge Data
Date of Admission: 10/24/24
Date of Discharge: 11/06/24
-
Pending Results: No
Hospital Course
Discharging Physician : Minna Bronson MD
Disposition : [facility]
Primary care physician : Dr. Harpreet Kelsey
Principal Discharge diagnosis : Intertrigo and tinea corporis, oral candidiasis, orthostatic hypotension, acute left lower extremity deep vein thrombosis
Chronic Discharge diagnosis :
Type 2 diabetes mellitus, poorly controlled (HbA1c 10.6%)
Psoriatic arthritis on Biologics and low-dose prednisone
Primary hypertension
mitral annular calcification with mobile component
Obesity
History of pulmonary embolism with IVC filter in place
Hospital Course :
64-year-old male with a history of type 2 diabetes mellitus, psoriatic arthritis, hypertension and pulmonary embolism with IVC filter who presented with a 6-month history of bilateral groin rash and new onset odynophagia for 1 week. No associated
fever, chills, abdominal pain or urinary symptoms.
Workup revealed:
- intertrigo and tinea corporis in groin
- oral thrush likely due to immunosuppression and poor glycemic control
- low fasting cortisol concerning for adrenal insufficiency, but ACTH stimulation test was not valid due to prednisone use
- Orthostatic hypotension
- Extensive acute left lower extremity DVT
Fluconazole was initially started but discontinued due to possible contribution to hypotension via adrenal suppression. Supportive therapy with IV fluids, midodrine drip and adjustment of antihypertensives. Losartan was tapered and eventually
discontinued.
Diabetes mellitus management : patient was placed on a 17 carbohydrate diet and started on Lantus 14 units at bedtime and 4 units NovoLog AC, and eventually increased to Lantus 25 units at bedtime with 8 units NovoLog AC.
Echo incidentally revealed mitral annular calcification with mobile components, suspected calcific degeneration, not infective endocarditis. Infectious diseases was consulted. No systemic symptoms and serial blood cultures were negative.
DVT management: He was started on Eliquis 10 Mg PO BID until 11/08/24, and transition to 5 mg BID indefinitely thereafter.
Important imaging findings :
Echo showed mitral annular calcification with mobile components, suspecting vegetation due to calcification.
Doppler ultrasound left lower extremity showed an extensive DVT.
Discharge Plan
-
Patient Disposition: [facility]sp/SNF
Discharge Diagnosis/Procedures: Inguinal candidiasis, Probable pharyngeal/esophageal candidiasis, Uncontrolled diabetes mellitus, left lower extremity deep vein thrombosis, orthostatic hypotension
Condition: Fair
Diet: Low Fat, Diabetic, Carb Controlled and No added salt
Additional Diets: 17 Carb diet
Activity: As tolerated
Driving Restrictions: As prior to admission
Bathing Restrictions: None
Activity Restrictions/Additional Instructions:
Wound Care Instructions
Groin, scrotum and buttocks: clean/soak with Vashe or clean with soap and water, dry then apply barrier cream twice a day and as needed.
R medial thigh and L lateral leg: clean with soap and water, apply dry dressing change daily and prn drainage.
Wear underwear that is 100% cotton and change daily.
Referrals:
Marjorie Andersen MD [Consulting Staff, Endocrinology] - in two to four weeks
Harpreet Kelsey MD [Family Provider, Internal Medicine] - in less than 1 week
Referral Note: Patient was admitted for inguinal candidiasis, probable esophageal/pharyngeal candidiasis likely due to uncontrolled diabetes mellitus, orthostatic hypotension and DVT LLE. Patient put on insulin during admission, recommending
outpatient follow-up for uncontrolled diabetes mellitus as his A1c was above 10 on admission. Patient also advised outpatient endocrinology consult for possible diagnosis of orthostatic hypotension due to adrenal insufficiency- patient on
prednisone.
Additional Discharge Medication Instructions: Eliquis 10 mg twice daily until 11/08/24, and then switch to Eliquis 5 mg twice daily indefinitely
Prescriptions:
New
acetaminophen 325 mg Tablet
650 mg PO Q4HPRN PRN (Reason: Mild Pain / Temp > 101) Qty: 30 0RF
insulin aspart U-100 100 unit/mL (3 mL) Insulin Pen
8 unit SC AC Qty: 0 0RF
pantoprazole 40 mg Tablet,Delayed Release (Dr/Ec)
40 mg PO DAILY Qty: 30 0RF
Eliquis 5 mg Tablet
10 mg PO BID Qty: 60 0RF
Insulin Glargine Lantus [Lantus] 25 UNITS
Subcutaneous Insulin Syringe [Syringe-Insulin] 0 UNIT
As Directed mls/hr SC HS
Ordered By: Minna Bronson MD, Resident
Last Taken: 11/05/24 22:14 0.25 mls
midodrine 2.5 mg Tablet
5 mg PO TID@0800,1300,1800 Qty: 45 0RF
Continued
losartan 50 mg Tablet
50 mg PO QPM
prednisone 5 mg Tablet
5 mg PO BID
methotrexate sodium 2.5 mg Tablet
25 mg PO WE
simvastatin 20 mg Tablet
20 mg PO QPM
glimepiride 4 mg Tablet
4 mg PO BID
folic acid 1 mg Tablet
1 mg PO QPM
cholecalciferol (vitamin D3) [Vitamin D3] 25 mcg (1,000 unit) Tablet
25 mcg PO DAILY
Theragen Tablet
1 tab PO DAILY
ascorbic acid (vitamin C) [Vitamin C] 500 mg Tablet
500 mg PO DAILY
metformin 500 mg Tablet Extended Release 24 Hr
1,000 mg PO BID
cinnamon bark [Cinnamon] 500 mg Capsule
500 mg PO DAILY
Tremfya 200 mg/2 mL Syringe
200 mg SC Q8W
Discharge Orders:
Discharge Patient (As Directed); Ordered 11/06/24
Ordered By: Minna Bronson
Discharge Date and Time
Print Language: ROMANIAN
[2024-10-28 10:28] LABS: ALT (SGPT) 27 U/L (0-50); AST (SGOT) 21 U/L (17-59); Albumin 4.2 g/dl (3.5-5.0); Alkaline Phosphatase 79 U/L (38-126); Blood Urea Nitrogen 35 mg/dl (9-20); Calcium 9.3 mg/dl (8.4-10.2); Carbon Dioxide 23 mmol/L (22-30); Chloride 107 mmol/L (98-107); Estimated Creatinine Clearance 77 ml/min; Glucose 255 mg/dl (70-99); Magnesium 1.8 mg/dl (1.6-2.3); Potassium 4.1 mmol/L (3.5-5.1); Sodium 138 mmol/L (135-145); Total Protein 7.0 g/dl (6.3-8.2); eGFR 56.13
[2024-10-28] MEDS: NOVOLOG FLEXPEN 7 UNITS SC ×3 (11:07→17:50)
[2024-10-28] MEDS: NOVOLOG FLEXPEN-LOW RESISTANCE 2 UNITS SC (11:08)
[2024-10-28] MEDS: NSS 1000 IV ×2 (11:09→21:38)
[2024-10-28 12:18] VITALS: BP 100/63; BP 105/70; BP 120/73; BP 98/63; PULSE 78; PULSE 91; PULSE 94
--- NOTE | 2024-10-28 12:30 | W.PN.HOSP.TC ---
Addendum entered and electronically signed by Janine Guillermo MD 10/28/24 12:48:
I saw and evaluated the patient independently. I reviewed the resident�s note and agree with findings and plan as documented by Dr. Martinez.
GENERAL: well developed, well nourished, obese male in no apparent distress
HEENT: NC/AT, thrush resolved, + oral ulcer on soft palate also improving
HEART: regular rate and rhythm, +S1, +S2
LUNGS : clear to auscultation bilaterally
ABDOM: soft, nontender, nondistended, + bowel sounds
EXT: no cyanosis, clubbing, or edema
NEUROLOGIC: grossly intact
SKIN: red area under skin folds in bilateral groin--left > right--improving
hopeful d/c tomorrow--await PT/OT
Intertrigo, tinea corporis/oral thrush/oral ulcer--likely all due to uncontrolled type 2 DM with hyperglycemia--apprec ID--change IV fluconazole to PO, oral mycelex, magic mouthwash--HIV negative
lightheaded--suspect orthostasis and deconditioning--check orthostatic VS and give 1 L IVF
Diabetes mellitus-type II--uncontrolled--HGB A1C 10.6--cont insulin, novolog with meals and lantus-- apprec DM WEBBING SUPERVISOR
Psoriatic arthritis--tremfya, prednisone
Essential hypertension- Continue losartan
Obesity-due to excess calories--Affects all aspects of care--Advised patient to increase activity and limit calorie intake
History of pulmonary embolism--IVC filter in place
DVT proph -- lovenox
code status--Full code
Original Note:
Today's Communication/Plan
-
Po fluconazole
Fluids for orthostatic hypotension
Assessment / Plan
Assessment / Plan
64-year-old male with past medical history of type II diabetes mellitus, Psoriatic arthritis, pulmonary embolism, obesity and hypertension who presented to the ED with complaints of bilateral groin pain and painful swallowing. Patient developed
redness in the inguinal folds about 6 months ago and has found no relief with intermittent nystatin powder use. He states that the area is progressively getting more red and painful. The left side is worse than the right. He has also noticed
bloody discharge on his garments. Patient developed painful swallowing and oral pain over the past 3 days. He admits to 'not taking care of himself.' No fever, chills, nausea, vomiting, diarrhea, urinary complaints. No history of high risk
behaviors for HIV. Patient states he has poorly controlled diabetes as his last A1c was 9.6%. He is on etanercept for the past 10 years for psoriatic arthritis. Patient recently got Tremfya as a loading dose in August 2024. He takes low-dose
prednisone.
# Intertrigo, tinea corporis
# Oral thrush -likely due to uncontrolled diabetes mellitus
- IV fluconazole -> PO continued per ID consult
- Continue Mycelex lozenges and Magic mouthwash
- Wound care following
- HIV negative
- Recommended better hygiene
# Orthostatic hypotension
- started on fluids - noted urine to be concentrated this am
- Orthostatic vitals positive for HR increase >20
- Recommended continuation with physical therapy, increase p.o. intake, careful when getting up from the bed.
- Will monitor
# Diabetes mellitus-type II
- HbA1c 10.6%
- 17 carb diet ordered
- DM WEBBING SUPERVISOR consult: Glargine 18 SC HS, aspart 7 SC AC. Sugars elevated. SSI.
# Psoriatic arthritis
-Received Tremfya a month ago, no current symptoms of joint pain
-Continue low-dose prednisone
# Primary hypertension
- Continue losartan
# Obesity-due to excess calories
- Affects all aspects of care
- Advised patient to increase activity and limit calorie intake
# History of pulmonary embolism
- IVC filter in place
- DVT prophylaxis: Lovenox
Plan to discharge hopefully home tomorrow with home health.
Full code
PCP Dr. Harpreet Kelsey
Anticipated Discharge: Within 24 hours
Subjective/Interval History
-
Date of Service: October 28, 2024
Complaint of moment of dizziness after standing up yesterday. Feels like he might pass out when he stands up and his heart starts to race. Otherwise no other complaints.
Objective Data
-
Labs:
Laboratory Results
10/28/24
09:31
WBC 7.3
Hgb 12.8 L
Hct 37.4 L
Plt Count 171
Sodium 138
Potassium 4.1
Chloride 107
Carbon Dioxide 23
BUN 35 H
Creatinine 1.4 H
Glucose 255 H
Calcium 9.3
Total Bilirubin 0.8
AST 21
ALT 27
Alkaline Phosphatase 79
Vital Signs:
Vital Signs
Temp Pulse Resp BP Pulse Ox
98 F 61 14 118/75 100
10/28/24 07:00 10/28/24 07:00 10/28/24 07:00 10/28/24 07:00 10/28/24 07:00
I&O
10/27/24 10/28/24 10/29/24
06:59 06:59 06:59
Intake Total 1640 / 1640 360 / 360
Balance 1640 / 1640 360 / 360
Review of Systems
-
History Source: Patient
EENT: Reports Sore Throat and Mouth Pain
Respiratory: Reports No Symptoms
Cardiac: Reports Other (Feeling like he will pass out when he stands up and an increase in heart rate)
Abdomen/GI: Reports No Symptoms
Genitourinary: Reports No Symptoms
Skin: Reports Rash
Neuro: Reports No Symptoms
Physical Exam
-
General: No Apparent Distress and Comfortable
HEENT: Normocephalic, Moist Mucous Membranes and Pharyngeal Erythema
Respiratory: Clear to Auscultation
Cardiac: Regular Rhythm and S1/S2
GI: Soft, Nontender, Nondistended and Normal Bowel Sounds
Skin: Warm, Dry and Rash (Right inguinal and scrotal area)
Neuro: AO x 3
[2024-10-28 12:43] LABS: Glucose - Point of Care 188 mg/dl (70-99)
[2024-10-28] MEDS: NOVOLOG FLEXPEN-LOW RESISTANCE 1 UNITS SC ×2 (12:51→17:50)
[2024-10-28 15:00] VITALS: BP 130/80
--- NOTE | 2024-10-28 15:38 | W.PN.ID1 ---
Date of Service
Date of Service: October 28, 2024
Today's Communication
- Continue po fluconazole 200mg po daily through 11/13. QTc normal
Assessment / Plan
# L> R inguinal candidiasis
# pharyngeal/esophageal candidiasis
# Uncontrolled DM, A1c 10.6
# Psoriatic arthritis on prednisone 10mg/d and biologic
- Local wound care to inguinal areas.
-pharynx; negative rapid group A strep.
- HIV screening negative
- Continue po fluconazole 200mg po daily through 11/13. QTc normal
# Conditions prior to admission
Diabetes mellitus type 2
Hypertension
Psoriatic arthritis on Enbrel then Tremfya, prednisone 5mg bid
Obesity BMI 37
PE status post IVC filter placement
Appendectomy
Hernia repair
Arthroscopic surgeries of bilateral knees
Chief Complaint
-: Other (Candidiasis)
Subjective / Review of Systems
Swallowing better.
Groin better.
c/o orthostatic dizziness and hypotension
Vital Signs / Physical Exam
Vital Signs
Vital Signs
Temp Pulse Resp BP Pulse Ox
98 F 61 14 118/75 100
10/28/24 07:00 10/28/24 07:00 10/28/24 07:00 10/28/24 07:00 10/28/24 15:06
Physical Exam
Constitutional: No Acute Distress
Oropharyngeal: Other (+erythema, white exudate/patches resolved)
Cardiovascular: Regular Rate
Pulmonary: Clear
Gastrointestinal: Soft, Non Tender and Non Distended
Skin: Rash (Left groin- decrease erythema)
Neurological: AO x 3
Objective Data
Lab Data
Lab Results
10/28/24 09:31
10/28/24 09:31
Estimated Creat Clear 77 ml/min 10/28/24 09:31
Total Bilirubin 0.8 mg/dl (0.2-1.3) 10/28/24 09:31
AST 21 U/L (17-59) 10/28/24 09:31
ALT 27 U/L (0-50) 10/28/24 09:31
Alkaline Phosphatase 79 U/L (38-126) 10/28/24 09:31
Most recent labs reviewed.
Micro Results:
10/26/24 11:35 Streptococcus Screen (ANITRA) - Final
Throat/Pharynx No Beta Hemolytic Streptococci Isolated
Streptococcus Rapid Screen - Final
Rapid Strep Screen (Group A) Negative
10/24/24 CXR: No acute cardiopulmonary process.
[2024-10-28 17:26] LABS: Glucose - Point of Care 183 mg/dl (70-99)
[2024-10-28] MEDS: COZAAR 50 MG PO (17:51)
[2024-10-28] MEDS: FOLVITE 1 MG PO (17:51)
[2024-10-28] MEDS: LOVENOX 40 MG SC (17:53)
[2024-10-28 21:06] LABS: Glucose - Point of Care 214 mg/dl (70-99)
[2024-10-28] MEDS: LANTUS 0.18 UNITS SC (21:32)
[2024-10-28 23:00] VITALS: BP 115/75
[2024-10-28 23:45] VITALS: BP 109/71; BP 115/75; BP 89/66; PULSE 101; PULSE 68; PULSE 81
[2024-10-29 04:26] VITALS: BMI 38.0
[2024-10-29 07:00] VITALS: BP 128/76
[2024-10-29 07:48] LABS: Glucose - Point of Care 156 mg/dl (70-99)
[2024-10-29] MEDS: NSS (PRESERVATIVE FREE) 10 ML IV (08:29)
[2024-10-29] MEDS: PROTONIX IV 40 MG IV (08:29)
[2024-10-29] MEDS: MYCELEX TROCHE 10 MG PO ×5 (08:30→20:11)
[2024-10-29] MEDS: NOVOLOG FLEXPEN-LOW RESISTANCE 1 UNITS SC ×3 (08:30→17:44)
[2024-10-29] MEDS: NOVOLOG FLEXPEN 7 UNITS SC ×3 (08:30→17:44)
[2024-10-29] MEDS: DELTASONE 5 MG PO ×2 (08:30→20:11)
[2024-10-29] MEDS: DIFLUCAN 200 MG PO (08:30)
[2024-10-29] MEDS: NSS 1000 IV ×2 (08:31→17:43)
[2024-10-29 08:53] LABS: Hematocrit 36.9 % (39.0-52.0); Hemoglobin 12.4 g/dL (13.0-18.0); Mean Corp Hgb Conc. 33.6 g/dL (33.0-37.0); Mean Corpuscular Volume 111.5 fL (80.0-94.0); Platelet Count 167 10^3/uL (130-400); Red Cell Dist. Width 16.1 % (11.5-14.5)
[2024-10-29 09:10] LABS: ALT (SGPT) 27 U/L (0-50); AST (SGOT) 23 U/L (17-59); Albumin 4.2 g/dl (3.5-5.0); Alkaline Phosphatase 80 U/L (38-126); Blood Urea Nitrogen 32 mg/dl (9-20); Calcium 9.4 mg/dl (8.4-10.2); Carbon Dioxide 22 mmol/L (22-30); Chloride 108 mmol/L (98-107); Estimated Creatinine Clearance 99 ml/min; Glucose 161 mg/dl (70-99); Magnesium 1.9 mg/dl (1.6-2.3); Potassium 4.3 mmol/L (3.5-5.1); Sodium 138 mmol/L (135-145); Total Protein 7.0 g/dl (6.3-8.2); eGFR > 60.00
[2024-10-29 11:38] VITALS: BP 105/77; BP 115/75; BP 131/77; PULSE 111; PULSE 78; PULSE 84
[2024-10-29 11:48] LABS: Glucose - Point of Care 165 mg/dl (70-99)
--- NOTE | 2024-10-29 11:51 | W.PN.HOSP.TC ---
Addendum entered and electronically signed by Janine Guillermo MD 10/29/24 15:29:
I saw and evaluated the patient independently. I reviewed the resident�s note and agree with findings and plan as documented by Dr. Martinez.
GENERAL: well developed, well nourished, obese male in no apparent distress
HEENT: NC/AT, thrush resolved, + oral ulcer on soft palate improved
HEART: regular rate and rhythm, +S1, +S2
LUNGS : clear to auscultation bilaterally
ABDOM: soft, nontender, nondistended, + bowel sounds
EXT: no cyanosis, clubbing, or edema
NEUROLOGIC: grossly intact
SKIN: red area under skin folds in bilateral groin--left > right--improved
hopeful d/c tomorrow-- PT/OT rec home health
Intertrigo, tinea corporis/oral thrush/oral ulcer--likely all due to uncontrolled type 2 DM with hyperglycemia--apprec ID--change IV fluconazole to PO to take through 11/13, oral mycelex, magic mouthwash--HIV negative
orthostatic VS--symptomatic--suspect combination of too much BP med with deconditioning--giving IVF and decreased losartan dose--current problem keeping pt in hospital
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
Psoriatic arthritis--tremfya, prednisone
Essential hypertension- Continue losartan at lowered dose
Obesity-due to excess calories--Affects all aspects of care--Advised patient to increase activity and limit calorie intake
History of pulmonary embolism--IVC filter in place
DVT proph -- lovenox
code status--Full code
Original Note:
Today's Communication/Plan
-
Fluids, decreased losartan to 25 daily
Continue fluconazole
Assessment / Plan
Assessment / Plan
64-year-old male with past medical history of type II diabetes mellitus, Psoriatic arthritis, pulmonary embolism, obesity and hypertension who presented to the ED with complaints of bilateral groin pain and painful swallowing. Patient developed
redness in the inguinal folds about 6 months ago and has found no relief with intermittent nystatin powder use. He states that the area is progressively getting more red and painful. The left side is worse than the right. He has also noticed
bloody discharge on his garments. Patient developed painful swallowing and oral pain over the past 3 days. He admits to 'not taking care of himself.' No fever, chills, nausea, vomiting, diarrhea, urinary complaints. No history of high risk
behaviors for HIV. Patient states he has poorly controlled diabetes as his last A1c was 9.6%. He is on etanercept for the past 10 years for psoriatic arthritis. Patient recently got Tremfya as a loading dose in August 2024. He takes low-dose
prednisone.
# Intertrigo, tinea corporis
# Oral thrush -likely due to uncontrolled diabetes mellitus
- IV fluconazole -> PO continued per ID consult
- Continue Mycelex lozenges and Magic mouthwash
- Wound care following
- HIV negative
- Recommended better hygiene
- QTc within normal limits
# Orthostatic hypotension
- started on fluids - noted urine to continue to be concentrated this a.m.
- Orthostatic vitals positive
- Recommended continuation with physical therapy, increase p.o. intake, careful when getting up from the bed.
- Will monitor
# Diabetes mellitus-type II
- HbA1c 10.6%
- 17 carb diet ordered
- DM TRUST EVALUATION SUPERVISOR consult: Glargine 18 SC HS, aspart 7 SC AC. Sugars elevated. SSI.
# Psoriatic arthritis
-Received Tremfya a month ago, no current symptoms of joint pain
-Continue low-dose prednisone
# Primary hypertension
- Continue losartan -decrease from 50 to 25 nightly due to orthostatic vitals
# Obesity-due to excess calories
- Affects all aspects of care
- Advised patient to increase activity and limit calorie intake
# History of pulmonary embolism
- IVC filter in place
- DVT prophylaxis: Lovenox
Plan to discharge hopefully home tomorrow with home health however now with orthostatic hypotension, may require SNF. PT evaluation tomorrow to confirm placement.
Full code
PCP Dr. Harpreet Kelsey
Anticipated Discharge: Within 24 hours
Subjective/Interval History
-
Date of Service: October 29, 2024
Continues to complain of dizziness with standing. Orthostatics positive. Unable to do stairs with PT.
Objective Data
-
Labs:
Laboratory Results
10/29/24
07:57
WBC 6.3
Hgb 12.4 L
Hct 36.9 L
Plt Count 167
Sodium 138
Potassium 4.3
Chloride 108 H
Carbon Dioxide 22
BUN 32 H
Creatinine 1.1
Glucose 161 H
Calcium 9.4
Total Bilirubin 0.7
AST 23
ALT 27
Alkaline Phosphatase 80
Vital Signs:
Vital Signs
Temp Pulse Resp BP Pulse Ox
98.3 F 69 12 128/76 96
10/29/24 07:00 10/29/24 07:00 10/29/24 07:00 10/29/24 07:00 10/29/24 07:00
I&O
10/28/24 10/29/24 10/30/24
06:59 06:59 06:59
Intake Total 360 / 360 1560 / 1560
Output Total 200 / 200
Balance 360 / 360 1360 / 1360
Review of Systems
-
History Source: Patient
EENT: Reports Sore Throat and Mouth Pain
Respiratory: Reports No Symptoms
Cardiac: Reports Other (Dizziness and feels his heart racing with standing up)
Abdomen/GI: Reports No Symptoms
Skin: Reports Rash
Neuro: Reports No Symptoms
Physical Exam
-
General: No Apparent Distress and Comfortable
HEENT: Normocephalic and Pharyngeal Erythema (Improving)
Respiratory: Clear to Auscultation
Cardiac: Regular Rhythm and S1/S2
GI: Soft, Nontender, Nondistended and Normal Bowel Sounds
Musculoskeletal: No Cyanosis and No Edema
Skin: Rash (Left-sided Inguinal rash improving)
Neuro: AO x 3
Psych: Calm
[2024-10-29 15:00] VITALS: BP 129/71
[2024-10-29] MEDS: TYLENOL 650 MG PO (16:01)
[2024-10-29 16:40] LABS: Glucose - Point of Care 190 mg/dl (70-99)
[2024-10-29] MEDS: LOVENOX 40 MG SC (17:45)
[2024-10-29] MEDS: FOLVITE 1 MG PO (17:45)
[2024-10-29] MEDS: COZAAR 25 MG PO (17:45)
[2024-10-29] MEDS: SENOKOT 17.2 MG PO (20:35)
[2024-10-29] MEDS: MIRALAX 17 GRAMS PO (20:36)
[2024-10-29 21:34] LABS: Glucose - Point of Care 156 mg/dl (70-99)
[2024-10-29] MEDS: LANTUS 0.18 UNITS SC (21:42)
[2024-10-29 23:18] VITALS: BP 137/80
[2024-10-30] MEDS: NSS 1000 IV ×3 (02:47→18:06)
[2024-10-30 06:00] VITALS: BMI 38.7
[2024-10-30 07:00] VITALS: BP 92/51
[2024-10-30 07:12] LABS: Hematocrit 35.2 % (39.0-52.0); Hemoglobin 12.0 g/dL (13.0-18.0); Mean Corp Hgb Conc. 34.1 g/dL (33.0-37.0); Mean Corpuscular Volume 113.2 fL (80.0-94.0); Platelet Count 137 10^3/uL (130-400); Red Cell Dist. Width 15.9 % (11.5-14.5)
[2024-10-30 07:26] LABS: Blood Urea Nitrogen 29 mg/dl (9-20); Calcium 9.2 mg/dl (8.4-10.2); Carbon Dioxide 23 mmol/L (22-30); Chloride 112 mmol/L (98-107); Estimated Creatinine Clearance 100 ml/min; Glucose 174 mg/dl (70-99); Potassium 4.4 mmol/L (3.5-5.1); Sodium 139 mmol/L (135-145); eGFR > 60.00
[2024-10-30 07:51] LABS: Glucose - Point of Care 172 mg/dl (70-99)
--- NOTE | 2024-10-30 07:53 | PN.DE.MGMTRT ---
Insulin Management
- -
10/30/2024 Diabetes Management Consult Follow up
Patient admitted 10/24 with c/o feeling dizzy, groin and mouth pain - severe intertrigo, esophageal candidiasis. PMH diabetes, psoriatic arthritis, HTN, pain redness in groin ~ 6 months. Prior to admission was taking metformin 1000 mg BID,
glimepiride 4 mg BID. A1C 10.6%, cr 1, eGFR > 60.
Patient is awake alert and oriented able to discuss diabetes care. Has had diabetes ~ 20 years, follows with primary doctor for diabetes care. Has glucose monitor but states strips are too expensive. Recommended obtaining Reli-On glucose monitor
from [facility] as strips are much less expensive.
Discussed with patient importance of glucose control, will need to start insulin, he is receptive.
Received HS lantus 18 units with 7 units novolog AC and low corrective insulin AC. Glucose range improved 156 to 190.
Fasting glucose 174. Will increase HS lantus 20 units and AC novolog to 8 units with low corrective insulin.
Discussed with nurse.
Will follow
Diabetes History
- -
Type of Diabetes: 2 requiring insulin
Pre-Admission Diabetes Regimen
10/29/24 10/30/24
07:57 06:39
Creatinine 1.1 1.1
Lab Results
Hemoglobin A1c 10.6 % (4.0-5.6) H 10/25/24 07:55
Insulin Pump Settings
IP Diabetes Regimen
10/29/24 10/29/24 10/29/24
07:57 11:47 16:39
Glucose 161 H
POC Glucose 165 H 190 H
10/29/24 10/30/24 10/30/24
21:33 06:39 07:50
Glucose 174 H
POC Glucose 156 H 172 H
Meal type: Breakfast
Amount consumed: 100%
Patient Education
[2024-10-30] MEDS: DIFLUCAN 200 MG PO (08:07)
[2024-10-30] MEDS: MYCELEX TROCHE 10 MG PO ×4 (08:07→23:26)
[2024-10-30] MEDS: DELTASONE 5 MG PO ×2 (08:07→20:51)
[2024-10-30] MEDS: NOVOLOG FLEXPEN 8 UNITS SC ×3 (08:08→18:04)
[2024-10-30] MEDS: NOVOLOG FLEXPEN-LOW RESISTANCE 1 UNITS SC ×2 (08:08→18:04)
[2024-10-30] MEDS: PROTONIX IV 40 MG IV (08:10)
[2024-10-30] MEDS: NSS (PRESERVATIVE FREE) 10 ML IV (08:10)
--- NOTE | 2024-10-30 08:26 | W.PN.HOSP.TC ---
Today's Communication/Plan
-
Discontinue fluconazole per ID Dr. Garza.
Echo ordered, consider midodrine pending Echo results.
Monitor orthostatic hypotension.
Assessment / Plan
Assessment / Plan
64 year old male with PMH of T2DM, psoriatic arthritis, pulmonary embolism, and hypertension who presented with bilateral groin rash x 6 months and dysphagia x last week. No fever, chills, nausea, vomiting, diarrhea, urinary complaints. He has
poorly controlled diabetes despite being compliant to metformin and glimepiride at home. He has been on etanercept for psoriatic arthritis for the past 10 years, and last loading dose of Tremfya in August 2024. Also takes low dose prednisone.
# Intertrigo, tinea corporis
# Oral thrush - likely due to uncontrolled diabetes mellitus
- IV fluconazole was transition to PO 11/13, but discontinuing fluconazole per ID as likely source of orthostatic hypotension.
- Continue wound care , Mycelex lozenges and Magic mouthwash
- HIV negative
- QTc within normal limits
# Orthostatic hypotension
- s/p IVF
- Recommended continuation with physical therapy, increase PO intake, careuful when standing up from sitting position
- Will order abdominal binder
- Decreased losartan from 50 mg to 25 mg nightly
- Fluconazole discontinued
- Echo ordered, consider midodrine pending Echo results
# Diabetes mellitus-type II
- HbA1c 10.6%
- 17 carb diet ordered
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
# Psoriatic arthritis
-Received Tremfya a month ago, no current symptoms of joint pain
-Continue low-dose prednisone
# Primary hypertension
- Continue losartan 25 mg PO
# Obesity-due to excess calories
- Affects all aspects of care
- Advised patient to increase activity and limit calorie intake
# History of pulmonary embolism
- IVC filter in place
- DVT prophylaxis: Lovenox
Full code
PCP Dr. Harpreet Kelsey
Anticipated Discharge: Within 24 hours
Subjective/Interval History
-
Date of Service: October 30, 2024
Inguinal rash and pain have significantly improved, oral pain is 'little to zero.'
Objective Data
-
Labs:
Laboratory Results
10/30/24
06:39
WBC 6.5
Hgb 12.0 L
Hct 35.2 L
Plt Count 137
Sodium 139
Potassium 4.4
Chloride 112 H
Carbon Dioxide 23
BUN 29 H
Creatinine 1.1
Glucose 174 H
Calcium 9.2
Vital Signs:
Vital Signs
Temp Pulse Resp BP Pulse Ox
97.9 F 65 18 137/80 96
10/29/24 23:18 10/29/24 23:18 10/29/24 23:18 10/29/24 23:18 10/29/24 23:18
I&O
10/29/24 10/30/24 10/31/24
06:59 06:59 06:59
Intake Total 1560 / 1560 2400 / 2400 480 / 480
Output Total 200 / 200 1100 / 1100
Balance 1360 / 1360 1300 / 1300 480 / 480
Review of Systems
-
History Source: Patient
All other systems: Reviewed and negative
Constitutional: Reports No Symptoms
EENT: Reports Mouth Pain (Minimal)
Respiratory: Reports No Symptoms
Abdomen/GI: Reports No Symptoms
Breast: Reports No Symptoms
Genitourinary: Reports No Symptoms
Musculoskeletal: Reports No Symptoms
Skin: Reports Rash (Inguinal area, improved since presentation)
Neuro: Reports No Symptoms
Endocrine: Reports No Symptoms
Hematologic / Lymphatic: Reports No Symptoms
Physical Exam
-
General: No Apparent Distress, Comfortable, Conversant and Obese
HEENT: Normocephalic, Atraumatic, Moist Mucous Membranes and Thrush (Improved since initial presentation)
Respiratory: Clear to Auscultation
Cardiac: Regular Rhythm and S1/S2
GI: Soft, Nontender, Nondistended and Normal Bowel Sounds
Genito-urinary: No Costovertebral Tender
Musculoskeletal: No Clubbing, No Cyanosis and No Edema
Skin: Warm and Rash (Bilateral inguinal erythema, improved when compared to initial presentation.)
Neuro: Awake and AO x 3
Hematologic / Lymphatic: No Lymphadenopathy
Psych: Calm
Data Reviewed
-
Labs: Labs Reviewed by me and Discussed with Physician
Old Records: Reviewed
[2024-10-30] MEDS: NOVOLOG FLEXPEN SC (08:31)
[2024-10-30 12:07] LABS: Glucose - Point of Care 140 mg/dl (70-99)
--- NOTE | 2024-10-30 12:11 | W.PN.UPDATE ---
Update Note
Progress Note Update
I saw and evaluated the patient. I reviewed the resident�s note and agree with findings and plan as documented in the resident�s note.
Dizziness is improving. Denies lightheadness while sitting up in bed.
Gen: NAD, AAOx3.
Eyes: EOMI, PERRLA, no scleral icterus.
Neck: supple.
CV: RRR, +S1/S2, no m/r/g.
Resp: CTAB, no rales, wheezes, or rhonchi.
Abd: +BS, soft, NT, ND
Skin: No rashes.
Neuro: CN 2-12 intact, non-focal.
Psych: Normal mood and affect.
10/26/24 11:35 Throat/Pharynx Streptococcus Screen (ANITRA) - Final
No Beta Hemolytic Streptococci Isolated
10/26/24 11:35 Throat/Pharynx Streptococcus Rapid Screen - Final
Rapid Strep Screen (Group A) Negative
Intertrigo, tinea corporis/oral thrush/oral ulcer:
-likely all due to uncontrolled DM2 with hyperglycemia
-HIV NEG
-was on IV fluconazole, then transitioned to PO Fluconazole. As per discussion with ID, stop fluconazole as it can cause adrenal insufficiency (leading to orthostatic hypotension)
-check fasting cortisol
Orthostatic hypotension:
-symptomatic
-losartan dose decreased
-s/p IVFs
-check echo
-consider midodrine pending echo results
-stopping fluconazole as above
Other problems:
DM2: uncontrolled with a1c 10.6%, cont Lantus/premeal Novolog/SSI/accuchecks/diabetic diet
Psoriatic arthritis: cont prednisone
Essential HTN: cont losartan
Obesity due to excess calories
h/o PE s/p IVC filter
FULL/Lovenox
--- NOTE | 2024-10-30 12:17 | W.PN.ID1 ---
Date of Service
Date of Service: October 30, 2024
Today's Communication
DC fluconazole. See below.
Assessment / Plan
# L> R inguinal candidiasis
# pharyngeal/esophageal candidiasis, resolving
# Symptomatic Hypotension
# Uncontrolled DM, A1c 10.6
# Psoriatic arthritis on prednisone 10mg/d and biologic
- Local wound care to inguinal areas.
-pharynx; negative rapid group A strep.
- HIV screening negative
- Suspect low BP issues due to adrenal insufficiency from fluconazole
- DC fluconazole (d7) and observe BP.
# Conditions prior to admission
Diabetes mellitus type 2
Hypertension
Psoriatic arthritis on Enbrel then Tremfya, prednisone 5mg bid
Obesity BMI 37
PE status post IVC filter placement
Appendectomy
Hernia repair
Arthroscopic surgeries of bilateral knees
Chief Complaint
-: Other (Candidiasis)
Subjective / Review of Systems
Odynophagia resolved. Groin rash improving.
Still dealing with low blood pressure.
Vital Signs / Physical Exam
Vital Signs
Vital Signs
Temp Pulse Resp BP Pulse Ox
97.6 F 63 18 92/51 97
10/30/24 07:00 10/30/24 07:00 10/30/24 07:00 10/30/24 07:00 10/30/24 07:00
Physical Exam
Constitutional: No Acute Distress
Oropharyngeal: Other (improving, miminal erythema soft palate)
Pulmonary: Clear
Gastrointestinal: Soft, Non Tender and Normal Bowel Sounds
Neurological: AO x 3
Objective Data
Lab Data
Lab Results
10/30/24 06:39
10/30/24 06:39
Estimated Creat Clear 100 ml/min 10/30/24 06:39
Total Bilirubin 0.7 mg/dl (0.2-1.3) 10/29/24 07:57
AST 23 U/L (17-59) 10/29/24 07:57
ALT 27 U/L (0-50) 10/29/24 07:57
Alkaline Phosphatase 80 U/L (38-126) 10/29/24 07:57
Most recent labs reviewed.
Micro Results:
10/26/24 11:35 Streptococcus Screen (ANITRA) - Final
Throat/Pharynx No Beta Hemolytic Streptococci Isolated
Streptococcus Rapid Screen - Final
Rapid Strep Screen (Group A) Negative
10/24/24 CXR: No acute cardiopulmonary process.
Care Review
Plan reviewed with: Physician (Channing Bronson)
[2024-10-30] MEDS: NOVOLOG FLEXPEN-LOW RESISTANCE SC (12:23)
[2024-10-30 14:48] VITALS: BP 121/74; BP 128/69; BP 138/79; PULSE 73; PULSE 94; O2SAT 97
[2024-10-30 15:00] VITALS: BP 129/81
--- NOTE | 2024-10-30 15:07 | CM ---
CM reviewed chart, patient seen bedside. Awaiting confirmation from [facility] regarding accepting patient for home services, patient previously denied by [facility] and [facility] due to insurance. CM will update patient on [facility] ability to accept. PT currently
recommending SNF vs VN- patient reports he is not agreeable to go to SNF. CM will continue to follow for all discharge planning needs.
Plan; Referral to [facility], awaiting confirmation of acceptance
[2024-10-30] MEDS: MYCELEX TROCHE PO (15:28)
[2024-10-30 16:44] LABS: Glucose - Point of Care 196 mg/dl (70-99)
[2024-10-30] MEDS: LOVENOX 40 MG SC (18:05)
[2024-10-30] MEDS: FOLVITE 1 MG PO (18:05)
[2024-10-30] MEDS: COZAAR 25 MG PO (18:05)
[2024-10-30] MEDS: TYLENOL 650 MG PO (20:53)
[2024-10-30 21:53] LABS: Glucose - Point of Care 127 mg/dl (70-99)
[2024-10-30] MEDS: LANTUS 0.2 UNITS SC (21:55)
[2024-10-30 23:59] VITALS: BP 131/86
[2024-10-31 06:00] VITALS: BMI 39.1
[2024-10-31 07:44] LABS: Glucose - Point of Care 164 mg/dl (70-99)
[2024-10-31 07:55] VITALS: BP 113/74
[2024-10-31] MEDS: PROTONIX 40 MG PO (07:58)
[2024-10-31] MEDS: DELTASONE 5 MG PO ×2 (07:58→20:04)
[2024-10-31] MEDS: MYCELEX TROCHE 10 MG PO ×5 (07:58→21:33)
[2024-10-31] MEDS: NOVOLOG FLEXPEN-LOW RESISTANCE 1 UNITS SC ×2 (07:59→12:30)
[2024-10-31] MEDS: NOVOLOG FLEXPEN 8 UNITS SC ×3 (07:59→18:07)
[2024-10-31 08:01] LABS: Hematocrit 34.0 % (39.0-52.0); Hemoglobin 11.4 g/dL (13.0-18.0); Mean Corp Hgb Conc. 33.5 g/dL (33.0-37.0); Mean Corpuscular Volume 111.8 fL (80.0-94.0); Nucleated Red Blood Cells % 0 % (-); Platelet Count 134 10^3/uL (130-400); Red Cell Dist. Width 16.0 % (11.5-14.5)
--- NOTE | 2024-10-31 08:08 | W.PN.UPDATE ---
Update Note
Progress Note Update
I saw and evaluated the patient. I reviewed the resident�s note and agree with findings and plan as documented in the resident�s note.
c/o constipation. Denies other acute complaints.
Gen: NAD, AAOx3.
Eyes: EOMI, PERRLA, no scleral icterus.
ENMT: palatal hyperemia, no thrush
Neck: supple.
CV: RRR, +S1/S2, no m/r/g.
Resp: CTAB, no rales, wheezes, or rhonchi.
Abd: +BS, soft, NT, ND
Skin: intact, L groin with minimal erythema
Neuro: CN 2-12 intact, non-focal.
Psych: Normal mood and affect.
10/26/24 11:35 Throat/Pharynx Streptococcus Screen (ANITRA) - Final
No Beta Hemolytic Streptococci Isolated
10/26/24 11:35 Throat/Pharynx Streptococcus Rapid Screen - Final
Rapid Strep Screen (Group A) Negative
Echo: Normal biventricular size and systolic function without regional wall motion
abnormality. LVEF 60-65%.
Mitral annular calcification with mobile components and calcification of the
subvalvular apparatus.
Mitral valve vegetation cannot be excluded.
Intertrigo, tinea corporis/oral thrush/oral ulcer:
-likely all due to uncontrolled DM2 with hyperglycemia
-HIV NEG
-was on IV fluconazole, then transitioned to PO Fluconazole. As per discussion with ID on 10/30/24, fluconazole was stopped as it can cause adrenal insufficiency (leading to orthostatic hypotension)
-regarding echocardiogram findings above, patient without systemic illness, highly doubt patient has an infectious mitral valve vegetation. Will discuss with infectious disease.
Orthostatic hypotension:
-symptomatic
-losartan dose decreased
-s/p IVFs
-echo above
-fluconazole stopped 10/30/24 as above
-fasting cortisol low, check cosyntropin stim test
-check orthostatic VS today
Other problems:
DM2: uncontrolled with a1c 10.6%, cont Lantus/premeal Novolog/SSI/accuchecks/diabetic diet
Psoriatic arthritis: cont prednisone
Essential HTN: cont losartan
Obesity due to excess calories
h/o PE s/p IVC filter
FULL/Lovenox
[2024-10-31 08:50] LABS: ALT (SGPT) 23 U/L (0-50); AST (SGOT) 20 U/L (17-59); Albumin 3.7 g/dl (3.5-5.0); Alkaline Phosphatase 78 U/L (38-126); Blood Urea Nitrogen 25 mg/dl (9-20); Calcium 9.5 mg/dl (8.4-10.2); Carbon Dioxide 21 mmol/L (22-30); Chloride 113 mmol/L (98-107); Estimated Creatinine Clearance 110 ml/min; Glucose 165 mg/dl (70-99); Magnesium 1.9 mg/dl (1.6-2.3); Potassium 4.3 mmol/L (3.5-5.1); Sodium 140 mmol/L (135-145); Total Protein 6.5 g/dl (6.3-8.2); eGFR > 60.00
--- NOTE | 2024-10-31 09:10 | PN.DE.MGMTRT ---
Insulin Management
- -
10/31/2024 Diabetes Management Consult Follow up
Patient admitted 10/24 with c/o feeling dizzy, groin and mouth pain - severe intertrigo, esophageal candidiasis. PMH diabetes, psoriatic arthritis, HTN, pain redness in groin ~ 6 months. Prior to admission was taking metformin 1000 mg BID,
glimepiride 4 mg BID. A1C 10.6%, cr 1, eGFR > 60.
Patient is awake alert and oriented able to discuss diabetes care. Has had diabetes ~ 20 years, follows with primary doctor for diabetes care. Has glucose monitor but states strips are too expensive. Recommended obtaining Reli-On glucose monitor
from [facility] as strips are much less expensive.
Discussed with patient importance of glucose control, will need to start insulin, he is receptive.
AC novolog increased to 8 units yesterday with low corrective insulin. glucose improved to 140 to 127 @ HS. (predinner elevated, patient ate most of meal prior to POC test) Fasting glucose 164. Will increase lantus to 22 units @ hs with novolog
8 units ac.
Discussed with nurse.
Will follow
Diabetes History
- -
Type of Diabetes: 2 requiring insulin
Pre-Admission Diabetes Regimen
10/31/24
07:34
Creatinine 1.0
Lab Results
Hemoglobin A1c 10.6 % (4.0-5.6) H 10/25/24 07:55
Insulin Pump Settings
IP Diabetes Regimen
10/30/24 10/30/24 10/30/24
12:05 16:40 21:50
Glucose
POC Glucose 140 H 196 H 127 H
10/31/24 10/31/24
07:34 07:43
Glucose 165 H
POC Glucose 164 H
Meal type: Dinner
Meal type: Lunch
Meal type: Breakfast
Amount consumed: 100%
Amount consumed: 100%
Amount consumed: 100%
Patient Education
[2024-10-31 09:33] LABS: Cortisol, Random 2.7 ug/dl
--- NOTE | 2024-10-31 09:48 | CM ---
Chart reviewed and patient's insurance has a limited plan benefit, referrals sent to multiple home care agencies including [facility], [facility], [facility], [facility] home care, [facility], [facility] and [facility]. All of these home
care agencies have denied patient.
Plan; Home unable to set up home care due to patient's limited insurance plan benefit.
--- NOTE | 2024-10-31 10:40 | W.PN.ID1 ---
Date of Service
Date of Service: October 31, 2024
Today's Communication
Check blood cx's x 3.
Assessment / Plan
# Symptomatic Hypotension
- Suspect low BP issues due to adrenal insufficiency from fluconazole
- Fluconazole dc'd. Last dose 8/4 am
# Incidental finding of mitral annular calcification with mobile components.
- Suspect vegetation due to calcification.
- Check blood cx's x 3 to ensure not IE.
# L> R inguinal candidiasis, resolving
# pharyngeal/esophageal candidiasis, resolving
- s/p 7 days fluconazole
- Local wound care to inguinal areas.
- Continue nystatin suspension or clotrimazole daniel.
- HIV screening negative
# Conditions prior to admission
Diabetes mellitus type 2
Hypertension
Psoriatic arthritis on Enbrel then Tremfya, prednisone 5mg bid
Obesity BMI 37
PE status post IVC filter placement
Appendectomy
Hernia repair
Arthroscopic surgeries of bilateral knees
Chief Complaint
-: Other (Candidiasis)
Subjective / Review of Systems
c/o of constipation. Eating well.
BP issues better.
Vital Signs / Physical Exam
Vital Signs
Vital Signs
Temp Pulse Resp BP Pulse Ox
98.1 F 67 18 113/74 95
10/31/24 07:55 10/31/24 07:55 10/31/24 07:55 10/31/24 07:55 10/31/24 07:55
Physical Exam
Constitutional: No Acute Distress
Oropharyngeal: Other (mild erythema posteriorly)
Cardiovascular: Regular Rate and S1/S2
Pulmonary: Clear
Gastrointestinal: Soft, Non Tender, Non Distended and Normal Bowel Sounds
Neurological: AO x 3
Objective Data
Lab Data
Lab Results
10/31/24 07:34
10/31/24 07:34
Estimated Creat Clear 110 ml/min 10/31/24 07:34
Total Bilirubin 0.9 mg/dl (0.2-1.3) 10/31/24 07:34
AST 20 U/L (17-59) 10/31/24 07:34
ALT 23 U/L (0-50) 10/31/24 07:34
Alkaline Phosphatase 78 U/L (38-126) 10/31/24 07:34
Most recent labs reviewed.
Micro Results:
10/31/24 10:28 Blood Culture - Pending
Blood/Venous
10/26/24 11:35 Streptococcus Screen (ANITRA) - Final
Throat/Pharynx No Beta Hemolytic Streptococci Isolated
Streptococcus Rapid Screen - Final
Rapid Strep Screen (Group A) Negative
10/24/24 CXR: No acute cardiopulmonary process.
[2024-10-31 11:22] VITALS: BP 105/66; BP 121/73; BP 130/74; PULSE 59; PULSE 78; PULSE 91
[2024-10-31 11:43] LABS: Glucose - Point of Care 155 mg/dl (70-99)
--- NOTE | 2024-10-31 11:55 | W.PN.HOSP.TC ---
Today's Communication/Plan
-
ACTH stimulation test to rule out adrenal insufficiency due to fluconazole
Blood cultures x 3 to rule out infectious endocarditis
Orthostatic vital signs twice daily
Assessment / Plan
Assessment / Plan
64 year old male with PMH of T2DM, psoriatic arthritis, pulmonary embolism, and hypertension who presented with bilateral groin rash x 6 months and dysphagia x last week. No fever, chills, nausea, vomiting, diarrhea, urinary complaints. He has
poorly controlled diabetes despite being compliant to metformin and glimepiride at home. He has been on etanercept for psoriatic arthritis for the past 10 years, and last loading dose of Tremfya in August 2024. Also takes low dose prednisone.
# Intertrigo, tinea corporis
# Oral thrush - likely due to uncontrolled diabetes mellitus
- Fluconazole discontinued-suspect low BP issues due to adrenal insufficiency from fluconazole.
- Fasting cortisol low, Will perform ACTH stimulation test.
- Continue wound care, Mycelex lozenges and Magic mouthwash
- HIV negative
- QTc within normal limits
# Orthostatic hypotension
- s/p IVF
- Recommended continuation with physical therapy, increase PO intake, careful when standing up from sitting position
- Will get orthostatic vital signs twice daily
- Decreased losartan from 50 mg to 25 mg nightly
- Fluconazole discontinued
# Incidental finding of mitral annular calcification with mobile components.
- Echo: Mitral annular calcification with mobile components, suspecting vegetation due to calcification.
- ID recommends checking blood cultures x 3 to ensure not IE.
# Diabetes mellitus-type II
- HbA1c 10.6%
- 17 carb diet ordered
- DM CARD READER consult: Given HS Lantus to 20 units and continue AC NovoLog 8 units with low corrective insulin.
# Psoriatic arthritis
-Received Tremfya a month ago, no current symptoms of joint pain
-Continue low-dose prednisone
# Primary hypertension
- Continue losartan 25 mg PO
# Obesity-due to excess calories
- Affects all aspects of care
- Advised patient to increase activity and limit calorie intake
# History of pulmonary embolism
- IVC filter in place
- DVT prophylaxis: Lovenox
Full code
PCP Dr. Harpreet Kelsey
Anticipated Discharge: 24 - 48 hours
Subjective/Interval History
-
Date of Service: October 31, 2024
Patient's inguinal rash and oral pain have improved. He states he had an episode of lightheadedness and palpitations after he came back from using the bathroom last night
Objective Data
-
Labs:
Laboratory Results
10/31/24
07:34
WBC 7.0
Hgb 11.4 L
Hct 34.0 L
Plt Count 134
Sodium 140
Potassium 4.3
Chloride 113 H
Carbon Dioxide 21 L
BUN 25 H
Creatinine 1.0
Glucose 165 H
Calcium 9.5
Total Bilirubin 0.9
AST 20
ALT 23
Alkaline Phosphatase 78
Vital Signs:
Vital Signs
Temp Pulse Resp BP Pulse Ox
98.1 F 67 18 113/74 95
10/31/24 07:55 10/31/24 07:55 10/31/24 07:55 10/31/24 07:55 10/31/24 07:55
I&O
10/30/24 10/31/24 11/01/24
06:59 06:59 06:59
Intake Total 2400 / 2400 2880 / 2880
Output Total 1100 / 1100 200 / 200
Balance 1300 / 1300 2680 / 2680
Review of Systems
-
History Source: Patient
All other systems: Reviewed and negative
Constitutional: Reports No Symptoms
EENT: Reports No Symptoms Reported
Respiratory: Reports No Symptoms
Cardiac: Reports Palpitations
Abdomen/GI: Reports Bloated
Breast: Reports No Symptoms
Genitourinary: Reports No Symptoms
Skin: Reports Rash
Neuro: Reports Lightheadedness
Endocrine: Reports No Symptoms
Hematologic / Lymphatic: Reports No Symptoms
Physical Exam
-
General: No Apparent Distress, Comfortable, Conversant and Obese
HEENT: Normocephalic, Atraumatic, Moist Mucous Membranes, Anicteric and Ears Appear Normal
Respiratory: Clear to Auscultation
Cardiac: Regular Rhythm and S1/S2
GI: Soft, Nontender, Nondistended and Normal Bowel Sounds
Musculoskeletal: No Clubbing, No Cyanosis and No Edema
Skin: Rash (Inguinal, improving since initial presentation.)
Neuro: Awake and AO x 3
Psych: Calm
Data Reviewed
-
Medical Tests (Nuc Med, Echo etc): Report Reviewed by me and Discussed with Physician
Labs: Labs Reviewed by me and Discussed with Physician
Old Records: Reviewed
[2024-10-31] MEDS: CORTROSYN 0.25 MG IV (12:00)
[2024-10-31 13:45] LABS: ACTH Stim Cortisol 30 Min 7.2 ug/dl
[2024-10-31 13:47] LABS: ACTH Stim Cortisol 0 Min 4.1 ug/dl
[2024-10-31 14:22] LABS: ACTH Stim Cortisol 60 Min 8.0 ug/dl
[2024-10-31] MEDS: TYLENOL 650 MG PO (14:37)
[2024-10-31 15:42] VITALS: BP 120/74
[2024-10-31] MEDS: MIRALAX 17 GRAMS PO (17:08)
[2024-10-31] MEDS: COZAAR 25 MG PO (17:08)
[2024-10-31] MEDS: LOVENOX 40 MG SC (17:08)
[2024-10-31] MEDS: SENOKOT 17.2 MG PO (17:08)
[2024-10-31] MEDS: FOLVITE 1 MG PO (17:08)
[2024-10-31 17:13] LABS: Glucose - Point of Care 200 mg/dl (70-99)
[2024-10-31] MEDS: NOVOLOG FLEXPEN-LOW RESISTANCE 2 UNITS SC (18:07)
[2024-10-31 21:23] LABS: Glucose - Point of Care 121 mg/dl (70-99)
[2024-10-31] MEDS: LANTUS 0.22 UNITS SC (21:33)
[2024-10-31 23:45] VITALS: BP 111/74; BP 128/76; BP 130/60; PULSE 106; PULSE 69; PULSE 70
[2024-11-01 06:00] VITALS: BMI 38.9
--- NOTE | 2024-11-01 07:27 | PN.DE.MGMTRT ---
Insulin Management
- -
11/01/2024 Diabetes Management Consult Follow up
Patient admitted 10/24 with c/o feeling dizzy, groin and mouth pain - severe intertrigo, esophageal candidiasis. PMH diabetes, psoriatic arthritis, HTN, pain redness in groin ~ 6 months. Prior to admission was taking metformin 1000 mg BID,
glimepiride 4 mg BID. A1C 10.6%, cr 1, eGFR > 60.
Patient is awake alert and oriented able to discuss diabetes care. Has had diabetes ~ 20 years, follows with primary doctor for diabetes care. Has glucose monitor but states strips are too expensive. Recommended obtaining Reli-On glucose monitor
from [facility] as strips are much less expensive.
Discussed with patient importance of glucose control, will need to start insulin, he is receptive.
Received AC novolog 8 units yesterday with low corrective insulin. glucose improved to 164 to 121 @ HS. Fasting glucose 164. Will continue lantus to 22 units @ hs with novolog 8 units ac.
Discussed with nurse.
Will follow
Diabetes History
- -
Type of Diabetes: 2 requiring insulin
Pre-Admission Diabetes Regimen
10/31/24
07:34
Creatinine 1.0
Lab Results
Hemoglobin A1c 10.6 % (4.0-5.6) H 10/25/24 07:55
Insulin Pump Settings
IP Diabetes Regimen
10/31/24 10/31/24 10/31/24
07:34 07:43 11:41
Glucose 165 H
POC Glucose 164 H 155 H
10/31/24 10/31/24
17:11 21:21
Glucose
POC Glucose 200 H 121 H
Meal type: Breakfast
Amount consumed: 100%
Patient Education
[2024-11-01 08:00] LABS: Glucose - Point of Care 162 mg/dl (70-99)
[2024-11-01 08:25] VITALS: BP 123/73; BP 136/75; BP 99/76; PULSE 62; PULSE 64; PULSE 90
--- NOTE | 2024-11-01 08:58 | CM ---
digital community manager reached out to patient's medical insurance and spoke with Coty Magana at [employer] [phone] patient's insurance, and patient only has inpatient hospital stay covered, patient does not have a rehab benefit, patient
does not have a visiting nurse benefit and patient does not have outpatient rehab benefit, ref # [id number].
Plan; Home when stable. Unable to set up home services as patient does not have coverage for home services, patient reports he cannot afford home care.
[2024-11-01] MEDS: MYCELEX TROCHE 10 MG PO ×5 (08:59→20:42)
[2024-11-01] MEDS: PROTONIX 40 MG PO (08:59)
[2024-11-01] MEDS: DELTASONE 5 MG PO ×2 (08:59→20:42)
[2024-11-01] MEDS: NOVOLOG FLEXPEN 8 UNITS SC ×3 (08:59→17:28)
[2024-11-01] MEDS: NOVOLOG FLEXPEN-LOW RESISTANCE 1 UNITS SC ×2 (09:00→17:28)
[2024-11-01 09:15] LABS: Hematocrit 36.2 % (39.0-52.0); Hemoglobin 12.3 g/dL (13.0-18.0); Mean Corp Hgb Conc. 34.0 g/dL (33.0-37.0); Mean Corpuscular Volume 112.4 fL (80.0-94.0); Nucleated Red Blood Cells % 0.2 % (-); Platelet Count 157 10^3/uL (130-400); Red Cell Dist. Width 16.0 % (11.5-14.5)
[2024-11-01 09:38] LABS: ALT (SGPT) 27 U/L (0-50); AST (SGOT) 27 U/L (17-59); Albumin 4.5 g/dl (3.5-5.0); Alkaline Phosphatase 87 U/L (38-126); Blood Urea Nitrogen 20 mg/dl (9-20); Calcium 9.8 mg/dl (8.4-10.2); Carbon Dioxide 24 mmol/L (22-30); Chloride 109 mmol/L (98-107); Estimated Creatinine Clearance 110 ml/min; Glucose 146 mg/dl (70-99); Magnesium 1.8 mg/dl (1.6-2.3); Potassium 4.0 mmol/L (3.5-5.1); Sodium 141 mmol/L (135-145); Total Protein 7.6 g/dl (6.3-8.2); eGFR > 60.00
--- NOTE | 2024-11-01 10:17 | W.PN.HOSP.TC ---
Today's Communication/Plan
-
Blood cultures x 3 (day 2), infectious diseases following.
Assessment / Plan
Assessment / Plan
64 year old male with PMH of T2DM, psoriatic arthritis, pulmonary embolism, and hypertension who presented with bilateral groin rash x 6 months and dysphagia x last week. No fever, chills, nausea, vomiting, diarrhea, urinary complaints. He has
poorly controlled diabetes despite being compliant to metformin and glimepiride at home. He has been on etanercept for psoriatic arthritis for the past 10 years, and last loading dose of Tremfya in August 2024. Also takes low dose prednisone.
Assessment/plan:
# Intertrigo, tinea corporis
# Oral thrush - likely due to uncontrolled diabetes mellitus
- Fluconazole discontinued-suspect low BP issues due to adrenal insufficiency from fluconazole.
- Fasting cortisol low, ACTH stimulation test not reliable as patient is on prednisone
- Continue wound care, Mycelex lozenges and Magic mouthwash
- HIV negative
- QTc within normal limits
# Orthostatic hypotension
- s/p IVF, Fluconazole discontinued
- Recommended continuation with physical therapy, increase PO intake, careful when standing up from sitting position
- Following orthostatic vital signs, not symptomatic currently
- Decreased losartan from 50 mg to 25 mg nightly
# Incidental finding of mitral annular calcification with mobile components.
- Echo: Mitral annular calcification with mobile components, suspecting vegetation due to calcification.�
- Blood cultures x 3 sent per ID recs
# Diabetes mellitus-type II
- HbA1c 10.6%
- 17 carb diet ordered
- DM SUPERVISOR WINTER consult: Given HS Lantus to 20 units and continue AC NovoLog 8 units with low corrective insulin.
# Psoriatic arthritis
-Received Tremfya a month ago, no current symptoms of joint pain
-Continue low-dose prednisone
# Primary hypertension
- Continue losartan 25 mg PO
# Obesity-due to excess calories
- Affects all aspects of care
- Advised patient to increase activity and limit calorie intake
# History of pulmonary embolism
- IVC filter in place
- DVT prophylaxis: Lovenox
Full code
PCP Dr. Harpreet Kelsey
Anticipated Discharge: 24 - 48 hours
Subjective/Interval History
-
Date of Service: November 01, 2024
Patient denies oral pain, and improvement in the inguinal rash. No new complaints.
Objective Data
-
Labs:
Laboratory Results
11/01/24
08:42
WBC 8.9
Hgb 12.3 L
Hct 36.2 L
Plt Count 157
Sodium 141
Potassium 4.0
Chloride 109 H
Carbon Dioxide 24
BUN 20
Creatinine 1.0
Glucose 146 H
Calcium 9.8
Total Bilirubin 0.7
AST 27
ALT 27
Alkaline Phosphatase 87
Vital Signs:
Vital Signs
Temp Pulse Resp BP Pulse Ox
97.4 F 69 16 130/60 97
11/01/24 08:25 10/31/24 23:45 11/01/24 08:25 10/31/24 23:45 11/01/24 08:25
I&O
10/31/24 11/01/24 11/02/24
06:59 06:59 06:59
Intake Total 2880 / 2880 960 / 960
Output Total 200 / 200 400 / 400
Balance 2680 / 2680 560 / 560
Review of Systems
-
History Source: Patient
All other systems: Reviewed and negative
Constitutional: Reports No Symptoms
EENT: Reports No Symptoms Reported
Respiratory: Reports No Symptoms
Cardiac: Reports No Symptoms
Abdomen/GI: Reports No Symptoms
Breast: Reports No Symptoms
Genitourinary: Reports No Symptoms
Musculoskeletal: Reports No Symptoms
Skin: Reports Rash
Neuro: Reports No Symptoms
Endocrine: Reports No Symptoms
Hematologic / Lymphatic: Reports No Symptoms
Allergy / Immunology: Reports No Symptoms
Physical Exam
-
General: No Apparent Distress, Comfortable, Conversant and Obese
HEENT: Normocephalic, Atraumatic, Moist Mucous Membranes and Anicteric
Respiratory: Clear to Auscultation
Cardiac: Regular Rhythm and S1/S2
GI: Soft, Nontender, Nondistended and Normal Bowel Sounds
Genito-urinary: No Costovertebral Tender
Musculoskeletal: No Clubbing and No Cyanosis
Skin: Warm and Rash (Inguinal)
Neuro: Awake and AO x 3
Hematologic / Lymphatic: No Lymphadenopathy
Psych: Calm
Data Reviewed
-
Labs: Labs Reviewed by me and Discussed with Physician
Old Records: Reviewed
--- NOTE | 2024-11-01 10:34 | W.PN.UPDATE ---
Update Note
Progress Note Update
I saw and evaluated the patient. I reviewed the resident�s note and agree with findings and plan as documented in the resident�s note.
c/o constipation. Denies other acute complaints.
Gen: NAD, AAOx3.
Eyes: EOMI, PERRLA, no scleral icterus.
ENMT: palatal hyperemia, no thrush
Neck: supple.
CV: RRR, +S1/S2, no m/r/g.
Resp: CTAB, no rales, wheezes, or rhonchi.
Abd: +BS, soft, NT, ND
Skin: intact, L groin with minimal erythema
Neuro: CN 2-12 intact, non-focal.
Psych: Normal mood and affect.
10/31/24 10:28 Blood/Venous Blood Culture - Preliminary
No Growth in 24 hours- Final report to follow
10/26/24 11:35 Throat/Pharynx Streptococcus Screen (ANITRA) - Final
No Beta Hemolytic Streptococci Isolated
10/26/24 11:35 Throat/Pharynx Streptococcus Rapid Screen - Final
Rapid Strep Screen (Group A) Negative
Echo: Normal biventricular size and systolic function without regional wall motion
abnormality. LVEF 60-65%.
Mitral annular calcification with mobile components and calcification of the
subvalvular apparatus.
Mitral valve vegetation cannot be excluded.
Intertrigo, tinea corporis/oral thrush/oral ulcer:
-likely all due to uncontrolled DM2 with hyperglycemia
-HIV NEG
-was on IV fluconazole, then transitioned to PO Fluconazole. As per discussion with ID on 10/30/24, fluconazole was stopped as it can cause adrenal insufficiency (leading to orthostatic hypotension).
-regarding echocardiogram findings above, patient without systemic illness, highly doubt patient has an infectious mitral valve vegetation.
-serial BCxs as per ID
Orthostatic hypotension:
-symptomatic
-losartan dose decreased
-s/p IVFs
-echo above
-fluconazole stopped 10/30/24 as above
-fasting cortisol low, cosyntropin stim test unreliable as pt on prednisone
-remains orthostatic but asymptomatic
Other problems:
DM2: uncontrolled with a1c 10.6%, cont Lantus/premeal Novolog/SSI/accuchecks/diabetic diet
Psoriatic arthritis: cont prednisone
Essential HTN: cont losartan
Obesity due to excess calories
h/o PE s/p IVC filter
FULL/Lovenox
Total time spent on today's encounter was 50 minutes which included time spent in counseling the patient/family regarding diagnosis and treatment plan as listed above, goals of care, and symptom management. Case was discussed with nursing staff,
specialists, and care coordinators/case management. All labs and imaging personally reviewed by me. Remainder the time spent in detailed review of previous records, lab data, imaging, and other medical provider documentation.
[2024-11-01 12:34] LABS: Glucose - Point of Care 130 mg/dl (70-99)
[2024-11-01] MEDS: NOVOLOG FLEXPEN-LOW RESISTANCE SC (12:37)
[2024-11-01] MEDS: MYLICON 80 MG PO (15:09)
--- NOTE | 2024-11-01 15:10 | W.PN.ID1 ---
Date of Service
Date of Service: November 01, 2024
Today's Communication
Follow blood cx's.
Assessment / Plan
# Incidental finding of mitral annular calcification with mobile components.
- Suspect vegetation due to calcification.
- 10/31 blood cx's x 2 (off abx) neg to date
- 8/6 blood cx's x 2 (off abx) neg to date.
# Hypotension
- ?Possible low BP issues due to adrenal insufficiency from fluconazole
- Fluconazole dc'd. Last dose 8/4 am
# L> R inguinal candidiasis, resolving
# pharyngeal/esophageal candidiasis, resolving
- s/p 7 days fluconazole
- Local wound care to inguinal areas.
- Continue nystatin suspension or clotrimazole daniel.
- HIV screening negative
# Conditions prior to admission
Diabetes mellitus type 2
Hypertension
Psoriatic arthritis on Enbrel then Tremfya, prednisone 5mg bid
Obesity BMI 37
PE status post IVC filter placement
Appendectomy
Hernia repair
Arthroscopic surgeries of bilateral knees
Chief Complaint
-: Other (Candidiasis)
Subjective / Review of Systems
Still with orthostatic BP issues.
Vital Signs / Physical Exam
Vital Signs
Vital Signs
Temp Pulse Resp BP Pulse Ox
97.4 F 69 16 130/60 97
11/01/24 08:25 10/31/24 23:45 11/01/24 08:25 10/31/24 23:45 11/01/24 08:25
Physical Exam
Constitutional: No Acute Distress and Comfortable
Oropharyngeal: Negative Benign
Cardiovascular: Regular Rate and S1/S2
Pulmonary: Clear
Gastrointestinal: Soft, Non Tender, Non Distended and Normal Bowel Sounds
Wound: Other (Left groin rash decreasing)
Neurological: AO x 3
Objective Data
Lab Data
Lab Results
11/01/24 08:42
11/01/24 08:42
Estimated Creat Clear 110 ml/min 11/01/24 08:42
Total Bilirubin 0.7 mg/dl (0.2-1.3) 11/01/24 08:42
AST 27 U/L (17-59) 11/01/24 08:42
ALT 27 U/L (0-50) 11/01/24 08:42
Alkaline Phosphatase 87 U/L (38-126) 11/01/24 08:42
Most recent labs reviewed.
Micro Results:
11/01/24 14:26 Blood Culture - Pending
Blood/Venous
10/31/24 11:07 Blood Culture - Preliminary
Blood/Venous No Growth in 24 hours- Final report to follow
10/31/24 10:28 Blood Culture - Preliminary
Blood/Venous No Growth in 24 hours- Final report to follow
11/01/24 08:42 Blood Culture - Pending
Blood/Venous
10/26/24 11:35 Streptococcus Screen (ANITRA) - Final
Throat/Pharynx No Beta Hemolytic Streptococci Isolated
Streptococcus Rapid Screen - Final
Rapid Strep Screen (Group A) Negative
10/24/24 CXR: No acute cardiopulmonary process.
[2024-11-01 16:20] VITALS: BP 124/86
[2024-11-01 16:44] VITALS: BP 107/72; BP 116/82; PULSE 84
[2024-11-01 16:48] LABS: Glucose - Point of Care 160 mg/dl (70-99)
[2024-11-01] MEDS: LOVENOX 40 MG SC (17:25)
[2024-11-01] MEDS: FOLVITE 1 MG PO (17:26)
[2024-11-01] MEDS: SENOKOT 17.2 MG PO (17:30)
[2024-11-01] MEDS: COZAAR 25 MG PO (17:35)
[2024-11-01] MEDS: TORADOL 15 MG IV (20:53)
[2024-11-01 21:33] LABS: Glucose - Point of Care 153 mg/dl (70-99)
[2024-11-01] MEDS: LANTUS 0.22 UNITS SC (21:38)
[2024-11-01 23:20] VITALS: BP 111/76
[2024-11-02] MEDS: TORADOL 15 MG IV (05:43)
[2024-11-02 06:00] VITALS: BMI 38.9
[2024-11-02 07:24] LABS: Hematocrit 33.4 % (39.0-52.0); Hemoglobin 11.2 g/dL (13.0-18.0); Mean Corp Hgb Conc. 33.5 g/dL (33.0-37.0); Mean Corpuscular Volume 113.2 fL (80.0-94.0); Nucleated Red Blood Cells % 0 % (-); Platelet Count 140 10^3/uL (130-400); Red Cell Dist. Width 15.7 % (11.5-14.5)
[2024-11-02 07:48] LABS: ALT (SGPT) 23 U/L (0-50); AST (SGOT) 23 U/L (17-59); Albumin 3.8 g/dl (3.5-5.0); Alkaline Phosphatase 83 U/L (38-126); Blood Urea Nitrogen 23 mg/dl (9-20); Calcium 9.3 mg/dl (8.4-10.2); Carbon Dioxide 24 mmol/L (22-30); Chloride 109 mmol/L (98-107); Estimated Creatinine Clearance 100 ml/min; Glucose 162 mg/dl (70-99); Magnesium 1.8 mg/dl (1.6-2.3); Potassium 4.5 mmol/L (3.5-5.1); Sodium 140 mmol/L (135-145); Total Protein 6.6 g/dl (6.3-8.2); eGFR > 60.00
[2024-11-02 07:50] LABS: Glucose - Point of Care 160 mg/dl (70-99)
--- NOTE | 2024-11-02 08:14 | PN.DE.MGMTRT ---
Insulin Management
- -
11/02/2024 Diabetes Management Consult Follow up
Patient admitted 10/24 with c/o feeling dizzy, groin and mouth pain - severe intertrigo, esophageal candidiasis. PMH diabetes, psoriatic arthritis, HTN, pain redness in groin ~ 6 months. Prior to admission was taking metformin 1000 mg BID,
glimepiride 4 mg BID. A1C 10.6%, cr 1, eGFR > 60.
Patient is awake alert and oriented able to discuss diabetes care. Has had diabetes ~ 20 years, follows with primary doctor for diabetes care. Has glucose monitor but states strips are too expensive. Recommended obtaining Reli-On glucose monitor
from [facility] as strips are much less expensive.
Discussed with patient importance of glucose control, will need to start insulin, he is receptive.
Received AC novolog 8 units yesterday with low corrective insulin. glucose improved to 130 to 160, 153 @ HS. Fasting glucose 160. Will continue lantus to 22 units @ hs with novolog 8 units ac.
Discussed with nurse.
Will follow
Diabetes History
- -
Type of Diabetes: 2 requiring insulin
Pre-Admission Diabetes Regimen
11/01/24 11/02/24
08:42 06:17
Creatinine 1.0 1.1
Lab Results
Hemoglobin A1c 10.6 % (4.0-5.6) H 10/25/24 07:55
Insulin Pump Settings
IP Diabetes Regimen
11/01/24 11/01/24 11/01/24
08:42 12:32 16:47
Glucose 146 H
POC Glucose 130 H 160 H
11/01/24 11/02/24 11/02/24
21:31 06:17 07:49
Glucose 162 H
POC Glucose 153 H 160 H
Patient Education
--- NOTE | 2024-11-02 08:15 | W.PN.UPDATE ---
Update Note
Progress Note Update
I saw and evaluated the patient. I reviewed the resident�s note and agree with findings and plan as documented in the resident�s note.
No new complaints. Pt states he still gets dizzy with standing up.
Gen: NAD, AAOx3.
Eyes: EOMI, PERRLA, no scleral icterus.
ENMT: palatal hyperemia, no thrush
Neck: supple.
CV: RRR, +S1/S2, no m/r/g.
Resp: CTAB, no rales, wheezes, or rhonchi.
Abd: +BS, soft, NT, ND
Skin: intact, 1-2+ B/L LE edema L>R
Neuro: CN 2-12 intact, non-focal.
Psych: Normal mood and affect.
10/31/24 11:07 Blood/Venous Blood Culture - Preliminary
No Growth in 24 hours- Final report to follow
10/31/24 10:28 Blood/Venous Blood Culture - Preliminary
No Growth in 24 hours- Final report to follow
10/26/24 11:35 Throat/Pharynx Streptococcus Screen (ANITRA) - Final
No Beta Hemolytic Streptococci Isolated
10/26/24 11:35 Throat/Pharynx Streptococcus Rapid Screen - Final
Rapid Strep Screen (Group A) Negative
Echo: Normal biventricular size and systolic function without regional wall motion
abnormality. LVEF 60-65%.
Mitral annular calcification with mobile components and calcification of the
subvalvular apparatus.
Mitral valve vegetation cannot be excluded.
Intertrigo, tinea corporis/oral thrush/oral ulcer:
-likely all due to uncontrolled DM2 with hyperglycemia
-HIV NEG
-was on IV fluconazole, then transitioned to PO Fluconazole. As per discussion with ID on 10/30/24, fluconazole was stopped as it can cause adrenal insufficiency (leading to orthostatic hypotension).
-regarding echocardiogram findings above, patient without systemic illness, highly doubt patient has an infectious mitral valve vegetation.
-serial BCxs as per ID
Orthostatic hypotension:
-symptomatic
-losartan dose decreased
-s/p IVFs
-echo above
-fluconazole stopped 10/30/24 as above
-fasting cortisol low, cosyntropin stim test unreliable as pt on prednisone
-remains orthostatic, now symptomatic
-start Midodrine
B/L LE edema:
-check B/L LE U/S
Other problems:
DM2: uncontrolled with a1c 10.6%, cont Lantus/premeal Novolog/SSI/accuchecks/diabetic diet
Psoriatic arthritis: cont prednisone
Essential HTN: cont losartan
Obesity due to excess calories
h/o PE s/p IVC filter
FULL/Lovenox
[2024-11-02] MEDS: DELTASONE 5 MG PO ×2 (08:23→20:11)
[2024-11-02] MEDS: PROTONIX 40 MG PO (08:23)
[2024-11-02] MEDS: MYCELEX TROCHE 10 MG PO ×5 (08:23→22:09)
[2024-11-02] MEDS: NOVOLOG FLEXPEN-LOW RESISTANCE 1 UNITS SC (08:24)
[2024-11-02] MEDS: NOVOLOG FLEXPEN 8 UNITS SC ×3 (08:24→17:55)
[2024-11-02 08:39] VITALS: BP 106/69; BP 114/73; BP 96/67; PULSE 76; PULSE 82; PULSE 98
--- NOTE | 2024-11-02 08:52 | W.PN.HOSP.TC ---
Today's Communication/Plan
-
Start midodrine drip
Duplex venous ultrasound bilateral lower extremities to rule out DVT
Follow blood cultures, ID following.
Recommend outpatient follow-up with endocrinology.
Assessment / Plan
Assessment / Plan
64 year old male with PMH of T2DM, psoriatic arthritis, pulmonary embolism, and hypertension who presented with bilateral groin rash x 6 months and dysphagia x last week. No fever, chills, nausea, vomiting, diarrhea, urinary complaints. He has
poorly controlled diabetes despite being compliant to metformin and glimepiride at home. He has been on etanercept for psoriatic arthritis for the past 10 years, and last loading dose of Tremfya in August 2024. Also takes low dose prednisone.
Assessment/plan:
# Intertrigo, tinea corporis
# Oral thrush - likely due to uncontrolled diabetes mellitus
- Fluconazole discontinued-suspect low BP issues due to adrenal insufficiency from fluconazole.
- Fasting cortisol low, ACTH stimulation test not reliable as patient is on prednisone; recommend endocrine outpatient follow-up.
- Continue wound care, Mycelex lozenges and Magic mouthwash
- HIV negative
- QTc within normal limits
# Orthostatic hypotension
- s/p IVF, Fluconazole discontinued
- Started on midodrine drip
- Recommended continuation with physical therapy, increase PO intake, careful when standing up from sitting position
- Following orthostatic vital signs, not symptomatic currently
- Decreased losartan from 50 mg to 25 mg nightly
# Left leg pain
- History of pulmonary embolism
- Duplex venous ultrasound bilateral extremities ordered to rule out DVT
# Incidental finding of mitral annular calcification with mobile components.
- Echo: Mitral annular calcification with mobile components, suspecting vegetation due to calcification.� Patient does not have any systemic symptoms, highly doubt patient has infectious mitral valve vegetation.
- Blood cultures x 3 sent per ID recs
# Diabetes mellitus-type II
- HbA1c 10.6%
- 17 carb diet ordered
- DM DATA ABSTRACTOR consult: Given HS Lantus to 20 units and continue AC NovoLog 8 units with low corrective insulin.
# Psoriatic arthritis
-Received Tremfya a month ago, no current symptoms of joint pain
-Continue low-dose prednisone
# Primary hypertension
- Continue losartan 25 mg PO
# Obesity-due to excess calories
- Affects all aspects of care
- Advised patient to increase activity and limit calorie intake
# History of pulmonary embolism
- IVC filter in place
- DVT prophylaxis: Lovenox
Full code
PCP Dr. Harpreet Kelsey
Anticipated Discharge: 24 - 48 hours
Subjective/Interval History
-
Date of Service: November 02, 2024
Patient states his inguinal rash and oral pain has significantly decreased. During PT yesterday, patient felt extremely dizzy after ambulating and could only go up and down 5 steps of stairs. He developed left leg pain and swelling yesterday
evening.
Objective Data
-
Labs:
Laboratory Results
11/02/24
06:17
WBC 9.7
Hgb 11.2 L
Hct 33.4 L
Plt Count 140
Sodium 140
Potassium 4.5
Chloride 109 H
Carbon Dioxide 24
BUN 23 H
Creatinine 1.1
Glucose 162 H
Calcium 9.3
Total Bilirubin 0.7
AST 23
ALT 23
Alkaline Phosphatase 83
Vital Signs:
Vital Signs
Temp Pulse Resp BP Pulse Ox
97.6 F 73 16 111/76 96
11/02/24 08:39 11/01/24 23:20 11/02/24 08:39 11/01/24 23:20 11/02/24 08:39
I&O
11/01/24 11/02/24 11/03/24
06:59 06:59 06:59
Intake Total 960 / 960 480 / 480
Output Total 400 / 400 200 / 200
Balance 560 / 560 280 / 280
Review of Systems
-
History Source: Patient
All other systems: Reviewed and negative
Constitutional: Reports No Symptoms
EENT: Reports No Symptoms Reported
Respiratory: Reports No Symptoms
Cardiac: Reports No Symptoms
Abdomen/GI: Reports No Symptoms
Breast: Reports No Symptoms
Genitourinary: Reports No Symptoms
Musculoskeletal: Reports Edema (Left lower extremity) and Other (Left leg pain)
Skin: Reports No Symptoms
Neuro: Reports No Symptoms
Endocrine: Reports No Symptoms
Hematologic / Lymphatic: Reports No Symptoms
Allergy / Immunology: Reports No Symptoms
Physical Exam
-
General: No Apparent Distress, Comfortable, Conversant and Obese
HEENT: Normocephalic, Atraumatic, Moist Mucous Membranes and Anicteric
Respiratory: Clear to Auscultation and Wheezes
Cardiac: Regular Rhythm and S1/S2
GI: Soft, Nontender, Nondistended, Normal Bowel Sounds and No Hepatosplenomegaly
Musculoskeletal: No Clubbing, No Cyanosis, Edema, Right Lower Extrem and Edema, Left Lower Extrem (L > R, with tenderness and warmth to palpation)
Neuro: Awake and AO x 3
Hematologic / Lymphatic: No Lymphadenopathy
Psych: Calm
Data Reviewed
-
Labs: Labs Reviewed by me and Discussed with Physician
Old Records: Reviewed
[2024-11-02 11:42] LABS: Glucose - Point of Care 145 mg/dl (70-99)
[2024-11-02] MEDS: ELIQUIS 10 MG PO ×2 (11:49→20:11)
[2024-11-02] MEDS: NOVOLOG FLEXPEN-LOW RESISTANCE SC (11:52)
--- NOTE | 2024-11-02 12:04 | W.PN.UPDATE ---
Addendum entered and electronically signed by Minna Bronson MD, Resident 11/03/24 07:42:
There was no formal documentation of the left leg pain by any medical staff overnight on 11/01/24. Patient stated his left leg pain began in the evening on 11/01/24 and was given Tramadol for it by the covering nurse.
Original Note:
Update Note
Progress Note Update
Duplex venous ultrasound revealed extensive LLE DVT. Eliquis 10 mg PO BID ordered.
[2024-11-02 13:57] VITALS: BP 126/76
[2024-11-02 15:32] VITALS: BP 132/72
--- NOTE | 2024-11-02 16:45 | W.PN.ID1 ---
Date of Service
Date of Service: November 02, 2024
Today's Communication
ID will sign off.
Assessment / Plan
# Incidental finding of mitral annular calcification with mobile components.
- Suspect vegetation due to calcification.
- Afebrile, normal wbc
- 10/31 blood cx's x 2 (off abx) neg to date
- 11/01 blood cx's x 2 (off abx) neg to date.
- No suspicion for infective endocarditis
# Extensive LLE DVT 11/02
# Hypotension
- Fluconazole dc'd 10/31 due to possible adrenal insufficiency from fluconazole
- However, pt still with orthostatic hypotension, now asymptomatic
# L> R inguinal candidiasis, resolving
# pharyngeal/esophageal candidiasis, resolved
- s/p 7 days fluconazole
- Local wound care to inguinal areas.
- HIV screening negative
ID will sign off. Call prn.
# Conditions prior to admission
Diabetes mellitus type 2
Hypertension
Psoriatic arthritis on Enbrel then Tremfya, prednisone 5mg bid
Obesity BMI 37
PE status post IVC filter placement
Appendectomy
Hernia repair
Arthroscopic surgeries of bilateral knees
Chief Complaint
-: Other (Candidiasis)
Subjective / Review of Systems
Found DVT.
Vital Signs / Physical Exam
Vital Signs
Vital Signs
Temp Pulse Resp BP Pulse Ox
98.3 F 90 16 132/72 98
11/02/24 15:32 11/02/24 15:32 11/02/24 15:32 11/02/24 15:32 11/02/24 15:32
Physical Exam
Constitutional: No Acute Distress and Obese
Cardiovascular: Regular Rate and S1/S2
Pulmonary: Clear
Gastrointestinal: Soft, Non Tender, Non Distended and Normal Bowel Sounds
Extremities: Edema (LLE) and Venous Insufficiency
Neurological: AO x 3
Objective Data
Lab Data
Lab Results
11/02/24 06:17
11/02/24 06:17
Estimated Creat Clear 100 ml/min 11/02/24 06:17
Total Bilirubin 0.7 mg/dl (0.2-1.3) 11/02/24 06:17
AST 23 U/L (17-59) 11/02/24 06:17
ALT 23 U/L (0-50) 11/02/24 06:17
Alkaline Phosphatase 83 U/L (38-126) 11/02/24 06:17
Most recent labs reviewed.
Micro Results:
11/02/24 14:55 Blood Culture - Pending
Blood/Venous
11/01/24 14:26 Blood Culture - Preliminary
Blood/Venous No Growth in 24 hours- Final report to follow
10/31/24 11:07 Blood Culture - Preliminary
Blood/Venous No Growth in 48 hours- Final report to follow
10/31/24 10:28 Blood Culture - Preliminary
Blood/Venous No Growth in 48 hours- Final report to follow
11/01/24 08:42 Blood Culture - Preliminary
Blood/Venous No Growth in 24 hours- Final report to follow
10/26/24 11:35 Streptococcus Screen (ANITRA) - Final
Throat/Pharynx No Beta Hemolytic Streptococci Isolated
Streptococcus Rapid Screen - Final
Rapid Strep Screen (Group A) Negative
10/24/24 CXR: No acute cardiopulmonary process.
[2024-11-02 17:06] LABS: Glucose - Point of Care 230 mg/dl (70-99)
[2024-11-02] MEDS: FOLVITE 1 MG PO (17:23)
[2024-11-02] MEDS: COZAAR 25 MG PO (17:27)
[2024-11-02] MEDS: NOVOLOG FLEXPEN-LOW RESISTANCE 2 UNITS SC (17:55)
[2024-11-02 22:03] LABS: Glucose - Point of Care 155 mg/dl (70-99)
[2024-11-02] MEDS: LANTUS 0.22 UNITS SC (22:09)
[2024-11-02 23:12] VITALS: BP 112/74
[2024-11-03 06:00] VITALS: BMI 39.1
[2024-11-03 07:00] VITALS: BP 120/83
--- NOTE | 2024-11-03 07:17 | PN.DE.MGMTRT ---
Insulin Management
- -
11/03/2024 Diabetes Management Consult Follow up
Patient admitted 10/24 with c/o feeling dizzy, groin and mouth pain - severe intertrigo, esophageal candidiasis. PMH diabetes, psoriatic arthritis, HTN, pain redness in groin ~ 6 months. Prior to admission was taking metformin 1000 mg BID,
glimepiride 4 mg BID. A1C 10.6%, cr 1, eGFR > 60.
Patient is awake alert and oriented able to discuss diabetes care. Has had diabetes ~ 20 years, follows with primary doctor for diabetes care. Has glucose monitor but states strips are too expensive. Recommended obtaining Reli-On glucose monitor
from [facility] as strips are much less expensive.
Discussed with patient importance of glucose control, will need to start insulin, he is receptive.
Ultrasound shows LLE DVT. Received AC novolog 8 units yesterday with low corrective insulin. glucose improved to 130 to 230 (only elevation), 155 @ HS. Fasting glucose 163. Will continue lantus to 22 units @ hs with novolog 8 units ac.
Discussed with nurse.
Will follow
Diabetes History
- -
Type of Diabetes: 2 requiring insulin
Pre-Admission Diabetes Regimen
11/02/24
06:17
Creatinine 1.1
Lab Results
Hemoglobin A1c 10.6 % (4.0-5.6) H 10/25/24 07:55
Insulin Pump Settings
IP Diabetes Regimen
11/02/24 11/02/24 11/02/24
06:17 07:49 11:41
Glucose 162 H
POC Glucose 160 H 145 H
11/02/24 11/02/24
17:05 22:00
Glucose
POC Glucose 230 H 155 H
Patient Education
[2024-11-03] MEDS: MYCELEX TROCHE 10 MG PO ×5 (07:42→21:45)
[2024-11-03] MEDS: ELIQUIS 10 MG PO ×2 (07:42→19:34)
[2024-11-03] MEDS: PROTONIX 40 MG PO (07:42)
[2024-11-03] MEDS: DELTASONE 5 MG PO ×2 (07:42→19:34)
[2024-11-03 07:47] LABS: Glucose - Point of Care 163 mg/dl (70-99)
[2024-11-03] MEDS: NOVOLOG FLEXPEN 8 UNITS SC ×3 (07:47→17:24)
[2024-11-03] MEDS: NOVOLOG FLEXPEN-LOW RESISTANCE 1 UNITS SC ×3 (07:48→17:24)
--- NOTE | 2024-11-03 08:26 | W.PN.UPDATE ---
Update Note
Progress Note Update
I saw and evaluated the patient. I reviewed the resident�s note and agree with findings and plan as documented in the resident�s note.
No new complaints.
Gen: NAD, AAOx3.
Eyes: EOMI, PERRLA, no scleral icterus.
Neck: supple.
CV: remains RRR, +S1/S2, no m/r/g.
Resp: remains CTAB, no rales, wheezes, or rhonchi.
Abd: +BS, soft, NT, ND
Skin: intact, remains 1-2+ B/L LE edema L>R
Neuro: CN 2-12 intact, non-focal.
Psych: Normal mood and affect.
11/01/24 14:26 Blood/Venous Blood Culture - Preliminary
No Growth in 24 hours- Final report to follow
10/31/24 11:07 Blood/Venous Blood Culture - Preliminary
No Growth in 48 hours- Final report to follow
10/31/24 10:28 Blood/Venous Blood Culture - Preliminary
No Growth in 48 hours- Final report to follow
11/01/24 08:42 Blood/Venous Blood Culture - Preliminary
No Growth in 24 hours- Final report to follow
10/26/24 11:35 Throat/Pharynx Streptococcus Screen (ANITRA) - Final
No Beta Hemolytic Streptococci Isolated
10/26/24 11:35 Throat/Pharynx Streptococcus Rapid Screen - Final
Rapid Strep Screen (Group A) Negative
Echo: Normal biventricular size and systolic function without regional wall motion
abnormality. LVEF 60-65%.
Mitral annular calcification with mobile components and calcification of the
subvalvular apparatus.
Mitral valve vegetation cannot be excluded.
Intertrigo, tinea corporis/oral thrush/oral ulcer:
-likely all due to uncontrolled DM2 with hyperglycemia
-HIV NEG
-was on IV fluconazole, then transitioned to PO Fluconazole. As per discussion with ID on 10/30/24, fluconazole was stopped as it can cause adrenal insufficiency (leading to orthostatic hypotension).
-regarding echocardiogram findings above, patient without systemic illness, highly doubt patient has an infectious mitral valve vegetation.
-serial BCxs are NGTD
Orthostatic hypotension:
-symptomatic
-losartan dose decreased
-s/p IVFs
-echo above
-fluconazole stopped 10/30/24 as above
-fasting cortisol low, cosyntropin stim test unreliable as pt on prednisone
-pt remained orthostatic, was symptomatic, and midodrine was started
Acute LLE DVT:
-Eliquis started
Other problems:
DM2: uncontrolled with a1c 10.6%, cont Lantus/premeal Novolog/SSI/accuchecks/diabetic diet
Psoriatic arthritis: cont prednisone
Essential HTN: cont losartan
Obesity due to excess calories
h/o PE s/p IVC filter
FULL/Lovenox
Medically cleared for d/c.
--- NOTE | 2024-11-03 09:06 | W.PN.HOSP.TC ---
Today's Communication/Plan
-
Serial blood cultures negative.
Continue Eliquis 10 Mg p.o. twice daily
Plan discharge today
Assessment / Plan
Assessment / Plan
64 year old male with PMH of T2DM, psoriatic arthritis, pulmonary embolism, and hypertension who presented with bilateral groin rash x 6 months and dysphagia x last week. No fever, chills, nausea, vomiting, diarrhea, urinary complaints. He has
poorly controlled diabetes despite being compliant to metformin and glimepiride at home. He has been on etanercept for psoriatic arthritis for the past 10 years, and last loading dose of Tremfya in August 2024. Also takes low dose prednisone.
Assessment/plan:
# Intertrigo, tinea corporis
# Oral thrush - likely due to uncontrolled diabetes mellitus
- Fluconazole discontinued-suspect low BP issues due to adrenal insufficiency from fluconazole.
- Fasting cortisol low, ACTH stimulation test not reliable as patient is on prednisone; recommend endocrine outpatient follow-up.
- Continue wound care, Mycelex lozenges and Magic mouthwash
- HIV negative
- QTc within normal limits
# Orthostatic hypotension
- s/p IVF, Fluconazole discontinued
- Decreased losartan from 50 mg to 25 mg nightly
- Continue midodrine drip
- Recommended continuation with physical therapy, increase PO intake, careful when standing up from sitting position
- Following orthostatic vital signs
# Acute LLE DVT:
- History of pulmonary embolism
- DVU showed extensive left lower extremity DVT.
- Placed on Eliquis 10 mg PO BID.
# Incidental finding of mitral annular calcification with mobile components.
- Echo: Mitral annular calcification with mobile components, suspecting vegetation due to calcification.� Patient does not have any systemic symptoms, highly doubt patient has infectious mitral valve vegetation.
- Serial blood cultures are negative.
# Diabetes mellitus-type II
- HbA1c 10.6%
- 17 carb diet ordered
- DM [employer]ENTICE consult: Given HS Lantus to 20 units and continue AC NovoLog 8 units with low corrective insulin.
# Psoriatic arthritis
-Received Tremfya a month ago, no current symptoms of joint pain
-Continue low-dose prednisone
# Primary hypertension
- Continue losartan 25 mg PO
# Obesity-due to excess calories
- Affects all aspects of care
- Advised patient to increase activity and limit calorie intake
# History of pulmonary embolism
- IVC filter in place
Medically cleared for discharge.
Full code
PCP Dr. Harpreet Kelsey
Anticipated Discharge: Today
Subjective/Interval History
-
Date of Service: November 03, 2024
Patient's oral pain and rash have improved. No new complaints. Patient states he lives with his landlord and has 16 stairs to go up and down from in the house. He feels that he cannot take care of himself at home and may possibly have to live out
of his car. He does not have family that can take him him in at this time.
Objective Data
-
Labs:
Laboratory Results
11/03/24
08:26
WBC Pending
Hgb Pending
Hct Pending
Plt Count Pending
Sodium Pending
Potassium Pending
Chloride Pending
Carbon Dioxide Pending
BUN Pending
Creatinine Pending
Glucose Pending
Calcium Pending
Total Bilirubin Pending
AST Pending
ALT Pending
Alkaline Phosphatase Pending
Vital Signs:
Vital Signs
Temp Pulse Resp BP Pulse Ox
97.8 F 64 16 120/83 98
11/03/24 07:00 11/03/24 07:00 11/03/24 07:00 11/03/24 07:00 11/03/24 07:00
I&O
11/02/24 11/03/24 11/04/24
06:59 06:59 06:59
Intake Total 480 / 480 960 / 960
Output Total 200 / 200 800 / 800
Balance 280 / 280 160 / 160
Review of Systems
-
History Source: Patient
All other systems: Reviewed and negative
Constitutional: Reports No Symptoms
EENT: Reports No Symptoms Reported
Respiratory: Reports No Symptoms
Cardiac: Reports No Symptoms
Abdomen/GI: Reports No Symptoms
Breast: Reports No Symptoms
Genitourinary: Reports No Symptoms
Musculoskeletal: Reports Other (Left leg pain)
Skin: Reports No Symptoms
Neuro: Reports No Symptoms
Endocrine: Reports No Symptoms
Hematologic / Lymphatic: Reports No Symptoms
Allergy / Immunology: Reports No Symptoms
Physical Exam
-
General: Obese
HEENT: Normocephalic, Atraumatic, Moist Mucous Membranes and Anicteric
Respiratory: Clear to Auscultation
Cardiac: Regular Rhythm and S1/S2
GI: Soft, Nontender, Nondistended and Normal Bowel Sounds
Genito-urinary: No Costovertebral Tender
Musculoskeletal: No Clubbing, No Cyanosis, Edema, Right Lower Extrem and Edema, Left Lower Extrem (Left more than right, warm to touch.)
Skin: Other (Venous status changes of the bilateral lower extremities.)
Neuro: Awake and AO x 3
Hematologic / Lymphatic: No Lymphadenopathy
Psych: Calm
Data Reviewed
-
Labs: Labs Reviewed by me and Discussed with Physician
Old Records: Reviewed
[2024-11-03 09:16] LABS: Hematocrit 35.6 % (39.0-52.0); Hemoglobin 11.7 g/dL (13.0-18.0); Mean Corp Hgb Conc. 32.9 g/dL (33.0-37.0); Mean Corpuscular Volume 113.4 fL (80.0-94.0); Nucleated Red Blood Cells % 0 % (-); Platelet Count 172 10^3/uL (130-400); Red Cell Dist. Width 15.7 % (11.5-14.5)
[2024-11-03 09:43] VITALS: BP 104/71; BP 112/76; BP 113/75; PULSE 120; PULSE 78; PULSE 87; O2SAT 98
[2024-11-03 10:07] LABS: ALT (SGPT) 26 U/L (0-50); AST (SGOT) 27 U/L (17-59); Albumin 4.2 g/dl (3.5-5.0); Alkaline Phosphatase 81 U/L (38-126); Blood Urea Nitrogen 26 mg/dl (9-20); Calcium 9.6 mg/dl (8.4-10.2); Carbon Dioxide 26 mmol/L (22-30); Chloride 108 mmol/L (98-107); Estimated Creatinine Clearance 110 ml/min; Glucose 150 mg/dl (70-99); Magnesium 1.8 mg/dl (1.6-2.3); Potassium 4.1 mmol/L (3.5-5.1); Sodium 141 mmol/L (135-145); Total Protein 7.2 g/dl (6.3-8.2); eGFR > 60.00
--- NOTE | 2024-11-03 12:17 | CM ---
CM reviewed chart, patient seen bedside, discussed discharge planning. Per patients insurance- patient does not have any VN/SNF insurance benefits. Patient reports he is willing/able to private pay for SNF- discussed cost roughly $500-600 a day.
Patient aware, agreeable to referrals to [place]. Update to Resident. CM will continue to follow for all discharge planning needs.
Plan; referrals to SNF, will be private pay
[2024-11-03 12:30] LABS: Glucose - Point of Care 155 mg/dl (70-99)
[2024-11-03 15:00] VITALS: BP 127/71
[2024-11-03 15:15] VITALS: BP 102/69; BP 104/71; BP 127/71; PULSE 118; PULSE 65; PULSE 73
[2024-11-03 17:13] LABS: Glucose - Point of Care 199 mg/dl (70-99)
[2024-11-03] MEDS: COZAAR 25 MG PO (17:29)
[2024-11-03] MEDS: FOLVITE 1 MG PO (17:29)
[2024-11-03 21:35] LABS: Glucose - Point of Care 161 mg/dl (70-99)
[2024-11-03] MEDS: LANTUS 0.22 UNITS SC (21:45)
[2024-11-03 23:06] VITALS: BP 129/80
[2024-11-04] MEDS: TYLENOL 650 MG PO (04:43)
[2024-11-04 06:00] VITALS: BMI 39.2
[2024-11-04 07:22] VITALS: BP 117/75
[2024-11-04] MEDS: DELTASONE 5 MG PO ×2 (07:28→21:56)
[2024-11-04] MEDS: ELIQUIS 10 MG PO ×2 (07:28→22:00)
[2024-11-04] MEDS: MYCELEX TROCHE 10 MG PO ×5 (07:28→21:57)
[2024-11-04] MEDS: PROTONIX 40 MG PO (07:28)
--- NOTE | 2024-11-04 07:28 | W.PN.HOSP.TC ---
Today's Communication/Plan
-
Awaiting SNF placement, case management following.
Discontinue losartan 25 Mg p.o. with persistent symptomatic orthostatic hypotension.
Assessment / Plan
Assessment / Plan
64 year old male with PMH of T2DM, psoriatic arthritis, pulmonary embolism, and hypertension who presented with bilateral groin rash x 6 months and dysphagia x last week. No fever, chills, nausea, vomiting, diarrhea, urinary complaints. He has
poorly controlled diabetes despite being compliant to metformin and glimepiride at home. He has been on etanercept for psoriatic arthritis for the past 10 years, and last loading dose of Tremfya in August 2024. Also takes low dose prednisone.
Assessment/plan:
# Intertrigo, tinea corporis
# Oral thrush - likely due to uncontrolled diabetes mellitus
- Fluconazole discontinued-suspect low BP issues due to adrenal insufficiency from fluconazole.
- Fasting cortisol low, ACTH stimulation test not reliable as patient is on prednisone; recommend endocrine outpatient follow-up.
- Continue wound care, Mycelex lozenges and Magic mouthwash
- HIV negative
- QTc within normal limits
# Orthostatic hypotension
- s/p IVF, Fluconazole discontinued
- Losartan was decreased from 50 Mg to 25 Mg. Plan to discontinue losartan now.
- Continue midodrine drip
- Recommended continuation with physical therapy, increase PO intake, careful when standing up from sitting position
- Following orthostatic vital signs
# Acute LLE DVT:
- History of pulmonary embolism
- DVU showed extensive left lower extremity DVT.
- Continue Eliquis 10 mg PO BID.
# Incidental finding of mitral annular calcification with mobile components.
- Echo: Mitral annular calcification with mobile components, suspecting vegetation due to calcification.� Patient does not have any systemic symptoms, highly doubt patient has infectious mitral valve vegetation.
- Serial blood cultures are negative, infectious diseases signed off.
# Diabetes mellitus-type II
- HbA1c 10.6%
- 17 carb diet ordered
- DM [employer]PER[employer] consult: Given HS Lantus to 20 units and continue AC NovoLog 8 units with low corrective insulin.
# Psoriatic arthritis
-Received Tremfya a month ago, no current symptoms of joint pain
-Continue low-dose prednisone
# Primary hypertension
- Discontinue losartan 25 Mg p.o. due to persistent symptomatic orthostatic hypotension.
# Obesity-due to excess calories
- Affects all aspects of care
- Advised patient to increase activity and limit calorie intake
# History of pulmonary embolism
- IVC filter in place
Medically cleared for discharge.
Full code
PCP Dr. Harpreet Kelsey
Anticipated Discharge: 24 - 48 hours
Subjective/Interval History
-
Date of Service: November 04, 2024
Patient states he is still having lightheadedness upon standing and feels his heart racing when he stands up from a laying down/sitting position. His left leg pain has decreased significantly. He has no new complaints.
Objective Data
-
Labs:
Laboratory Results
11/04/24
06:00
WBC Pending
Hgb Pending
Hct Pending
Plt Count Pending
Sodium Pending
Potassium Pending
Chloride Pending
Carbon Dioxide Pending
BUN Pending
Creatinine Pending
Glucose Pending
Calcium Pending
Total Bilirubin Pending
AST Pending
ALT Pending
Alkaline Phosphatase Pending
Vital Signs:
Vital Signs
Temp Pulse Resp BP Pulse Ox
97.9 F 68 18 117/75 99
11/04/24 07:22 11/04/24 07:22 11/04/24 07:22 11/04/24 07:22 11/04/24 07:22
I&O
11/03/24 11/04/24 11/05/24
06:59 06:59 06:59
Intake Total 960 / 960 1200 / 1200
Output Total 800 / 800 900 / 900
Balance 160 / 160 300 / 300
Review of Systems
-
History Source: Patient
All other systems: Reviewed and negative
EENT: Reports No Symptoms Reported
Respiratory: Reports No Symptoms
Cardiac: Reports No Symptoms
Abdomen/GI: Reports No Symptoms
Breast: Reports No Symptoms
Genitourinary: Reports No Symptoms
Musculoskeletal: Reports No Symptoms
Endocrine: Reports No Symptoms
Hematologic / Lymphatic: Reports No Symptoms
Physical Exam
-
General: No Apparent Distress, Comfortable, Conversant and Morbidly Obese
HEENT: Normocephalic, Atraumatic, Moist Mucous Membranes and Anicteric
Respiratory: Clear to Auscultation
Cardiac: Regular Rhythm and S1/S2
GI: Soft, Nontender, Nondistended, Normal Bowel Sounds and No Hepatosplenomegaly
Musculoskeletal: No Clubbing, No Cyanosis, Edema, Right Lower Extrem and Edema, Left Lower Extrem (L> R)
Neuro: Awake and AO x 3
Hematologic / Lymphatic: No Lymphadenopathy
Psych: Calm
Data Reviewed
-
Labs: Labs Reviewed by me and Discussed with Physician
Old Records: Reviewed
[2024-11-04 07:29] LABS: Glucose - Point of Care 179 mg/dl (70-99)
[2024-11-04 08:26] LABS: Hematocrit 34.9 % (39.0-52.0); Hemoglobin 11.5 g/dL (13.0-18.0); Mean Corp Hgb Conc. 33.0 g/dL (33.0-37.0); Mean Corpuscular Volume 113.3 fL (80.0-94.0); Nucleated Red Blood Cells % 0 % (-); Platelet Count 182 10^3/uL (130-400); Red Cell Dist. Width 15.7 % (11.5-14.5)
[2024-11-04] MEDS: NOVOLOG FLEXPEN 8 UNITS SC ×3 (08:27→17:27)
[2024-11-04] MEDS: NOVOLOG FLEXPEN-LOW RESISTANCE 1 UNITS SC ×3 (08:28→17:27)
[2024-11-04 09:08] LABS: ALT (SGPT) 26 U/L (0-50); AST (SGOT) 25 U/L (17-59); Albumin 3.9 g/dl (3.5-5.0); Alkaline Phosphatase 80 U/L (38-126); Blood Urea Nitrogen 24 mg/dl (9-20); Calcium 9.3 mg/dl (8.4-10.2); Carbon Dioxide 26 mmol/L (22-30); Chloride 108 mmol/L (98-107); Estimated Creatinine Clearance 123 ml/min; Glucose 163 mg/dl (70-99); Magnesium 1.8 mg/dl (1.6-2.3); Potassium 4.4 mmol/L (3.5-5.1); Sodium 140 mmol/L (135-145); Total Protein 6.8 g/dl (6.3-8.2); eGFR > 60.00
--- NOTE | 2024-11-04 09:18 | W.PN.UPDATE ---
Update Note
Progress Note Update
I saw and evaluated the patient. I reviewed the resident�s note and agree with findings and plan as documented in the resident�s note.
Still lightheaded with 'fast HR' with standing.
Gen: NAD, AAOx3.
Eyes: EOMI, PERRLA, no scleral icterus.
Neck: supple.
CV: continues to remain RRR, +S1/S2, no m/r/g.
Resp: continues to remain CTAB, no rales, wheezes, or rhonchi.
Abd: +BS, soft, NT, ND
Skin: intact, continues to remain 1-2+ B/L LE edema L>R
Neuro: CN 2-12 intact, non-focal.
Psych: Normal mood and affect.
11/01/24 08:42 Blood/Venous Blood Culture - Preliminary
No Growth in 72 hours- Final report to follow
11/02/24 14:55 Blood/Venous Blood Culture - Preliminary
No Growth in 24 hours- Final report to follow
11/01/24 14:26 Blood/Venous Blood Culture - Preliminary
No Growth in 48 hours- Final report to follow
10/31/24 11:07 Blood/Venous Blood Culture - Preliminary
No Growth in 72 hours- Final report to follow
10/31/24 10:28 Blood/Venous Blood Culture - Preliminary
No Growth in 72 hours- Final report to follow
10/26/24 11:35 Throat/Pharynx Streptococcus Screen (ANITRA) - Final
No Beta Hemolytic Streptococci Isolated
10/26/24 11:35 Throat/Pharynx Streptococcus Rapid Screen - Final
Rapid Strep Screen (Group A) Negative
Echo: Normal biventricular size and systolic function without regional wall motion
abnormality. LVEF 60-65%.
Mitral annular calcification with mobile components and calcification of the
subvalvular apparatus.
Mitral valve vegetation cannot be excluded.
Intertrigo, tinea corporis/oral thrush/oral ulcer:
-likely all due to uncontrolled DM2 with hyperglycemia
-HIV NEG
-was on IV fluconazole, then transitioned to PO Fluconazole. As per discussion with ID on 10/30/24, fluconazole was stopped as it can cause adrenal insufficiency (leading to orthostatic hypotension).
-regarding echocardiogram findings above, patient without systemic illness, highly doubt patient has an infectious mitral valve vegetation.
-serial BCxs are NGTD, ID has signed off
Orthostatic hypotension:
-symptomatic
-losartan dose decreased
-s/p IVFs
-echo above
-fluconazole stopped 10/30/24 as above
-fasting cortisol low, cosyntropin stim test unreliable as pt on prednisone
-pt remained orthostatic, was symptomatic, and midodrine was started. Stop Losartan.
Acute LLE DVT:
-Eliquis started
Other problems:
DM2: uncontrolled with a1c 10.6%, cont Lantus/premeal Novolog/SSI/accuchecks/diabetic diet
Psoriatic arthritis: cont prednisone
Essential HTN: stop losartan with persistent symptomatic orthostatic hypotension
Obesity due to excess calories
h/o PE s/p IVC filter
FULL/Lovenox
Remains medically cleared for d/c. Case management aware.
[2024-11-04 11:37] VITALS: BP 126/73; BP 129/75; BP 132/91; PULSE 105; PULSE 74; PULSE 95
[2024-11-04 12:40] LABS: Glucose - Point of Care 152 mg/dl (70-99)
--- NOTE | 2024-11-04 12:46 | CM ---
Met with patient. Discussed option of sNF versus assisted living with therapy at [place]. Patient wants to go to [facility]. He has spoken to liaison there. He plans to go Wednesday when they have an open bed for him and he has secured the payment for
Private paying SNF stay.
Discussed COBRA which he did not take. Gave him written information about COBRA in [place] and that he has 60 days from termination of work to file for COBRA. Also, suggested patient reach out to title insurance sales representative or go online to [employer] to check
options.
[2024-11-04 15:00] VITALS: BP 126/67
[2024-11-04 16:42] LABS: Glucose - Point of Care 191 mg/dl (70-99)
[2024-11-04] MEDS: FOLVITE 1 MG PO (17:26)
[2024-11-04 21:13] LABS: Glucose - Point of Care 133 mg/dl (70-99)
[2024-11-04] MEDS: LANTUS 0.25 UNITS SC (21:58)
[2024-11-04 23:57] VITALS: BP 152/78
[2024-11-05 06:00] VITALS: BMI 39.2
[2024-11-05 06:32] LABS: Hematocrit 31.7 % (39.0-52.0); Hemoglobin 10.8 g/dL (13.0-18.0); Mean Corp Hgb Conc. 34.1 g/dL (33.0-37.0); Mean Corpuscular Volume 111.6 fL (80.0-94.0); Platelet Count 184 10^3/uL (130-400); Red Cell Dist. Width 15.4 % (11.5-14.5)
[2024-11-05 06:56] LABS: Blood Urea Nitrogen 23 mg/dl (9-20); Calcium 9.1 mg/dl (8.4-10.2); Carbon Dioxide 26 mmol/L (22-30); Chloride 109 mmol/L (98-107); Estimated Creatinine Clearance 123 ml/min; Glucose 162 mg/dl (70-99); Potassium 4.3 mmol/L (3.5-5.1); Sodium 140 mmol/L (135-145); eGFR > 60.00
[2024-11-05 07:00] VITALS: BP 122/71
[2024-11-05 07:05] LABS: Magnesium 1.8 mg/dl (1.6-2.3)
[2024-11-05] MEDS: PROTONIX 40 MG PO (07:41)
[2024-11-05] MEDS: DELTASONE 5 MG PO ×2 (07:41→20:49)
[2024-11-05] MEDS: ELIQUIS 10 MG PO ×2 (07:41→20:49)
[2024-11-05] MEDS: MYCELEX TROCHE 10 MG PO ×5 (07:41→22:13)
[2024-11-05] MEDS: NOVOLOG FLEXPEN 8 UNITS SC ×3 (07:46→17:37)
[2024-11-05] MEDS: NOVOLOG FLEXPEN-LOW RESISTANCE 1 UNITS SC ×3 (07:46→17:38)
[2024-11-05 07:47] LABS: Glucose - Point of Care 168 mg/dl (70-99)
--- NOTE | 2024-11-05 08:56 | W.PN.HOSP.TC ---
Today's Communication/Plan
-
Patient is medically cleared for discharge.
Case management following, awaiting SNF placement tomorrow at [facility].
Assessment / Plan
Assessment / Plan
64 year old male with PMH of T2DM, psoriatic arthritis, pulmonary embolism, and hypertension who presented with bilateral groin rash x 6 months and dysphagia x last week. No fever, chills, nausea, vomiting, diarrhea, urinary complaints. He has
poorly controlled diabetes despite being compliant to metformin and glimepiride at home. He has been on etanercept for psoriatic arthritis for the past 10 years, and last loading dose of Tremfya in August 2024. Also takes low dose prednisone.
Assessment/plan:
# Intertrigo, tinea corporis
# Oral thrush - likely due to uncontrolled diabetes mellitus
- Fluconazole discontinued-suspect low BP issues due to adrenal insufficiency from fluconazole.
- Fasting cortisol low, ACTH stimulation test not reliable as patient is on prednisone; recommend endocrine outpatient follow-up.
- Continue wound care, Mycelex lozenges and Magic mouthwash
- HIV negative
- QTc within normal limits
# Orthostatic hypotension
- s/p IVF, Fluconazole discontinued
- Losartan was decreased from 50 Mg to 25 Mg, and eventually discontinued due to persistent orthostatic hypotension.
- Continue midodrine drip
- Recommended continuation with physical therapy, increase PO intake, careful when standing up from sitting position
- Following orthostatic vital signs
# Acute LLE DVT:
- History of pulmonary embolism
- DVU showed extensive left lower extremity DVT.
- Continue Eliquis 10 mg PO BID.
# Incidental finding of mitral annular calcification with mobile components.
- Echo: Mitral annular calcification with mobile components, suspecting vegetation due to calcification.� Patient does not have any systemic symptoms, highly doubt patient has infectious mitral valve vegetation.
- Serial blood cultures are negative, infectious diseases signed off.
# Diabetes mellitus-type II
- HbA1c 10.6%
- 17 carb diet ordered
- DM BOX COVERER HAND consult: Given HS Lantus to 20 units and continue AC NovoLog 8 units with low corrective insulin.
# Psoriatic arthritis
-Received Tremfya a month ago, no current symptoms of joint pain
-Continue low-dose prednisone
# Primary hypertension
- Discontinue losartan 25 Mg p.o. due to persistent symptomatic orthostatic hypotension.
# Obesity-due to excess calories
- Affects all aspects of care
- Advised patient to increase activity and limit calorie intake
# History of pulmonary embolism
- IVC filter in place
Medically cleared for discharge.
Full code
PCP Dr. Harpreet Kelsey
Anticipated Discharge: Within 24 hours
Subjective/Interval History
-
Date of Service: November 05, 2024
Patient feels well. No new complaints. Leg pain has decreased.
Objective Data
-
Labs:
Laboratory Results
11/05/24
06:07
WBC 8.7
Hgb 10.8 L
Hct 31.7 L
Plt Count 184
Sodium 140
Potassium 4.3
Chloride 109 H
Carbon Dioxide 26
BUN 23 H
Creatinine 0.9
Glucose 162 H
Calcium 9.1
Vital Signs:
Vital Signs
Temp Pulse Resp BP Pulse Ox
97.7 F 69 16 122/71 96
11/05/24 07:00 11/05/24 07:00 11/05/24 07:00 11/05/24 07:00 11/05/24 07:00
I&O
11/04/24 11/05/24 11/06/24
06:59 06:59 06:59
Intake Total 1200 / 1200 1200 / 1200
Output Total 900 / 900
Balance 300 / 300 1200 / 1200
Review of Systems
-
History Source: Patient
All other systems: Reviewed and negative
Constitutional: Reports No Symptoms
EENT: Reports No Symptoms Reported
Respiratory: Reports No Symptoms
Cardiac: Reports No Symptoms
Abdomen/GI: Reports No Symptoms
Breast: Reports No Symptoms
Genitourinary: Reports No Symptoms
Skin: Reports No Symptoms
Neuro: Reports No Symptoms
Endocrine: Reports No Symptoms
Hematologic / Lymphatic: Reports No Symptoms
Allergy / Immunology: Reports No Symptoms
Physical Exam
-
General: Well Developed, Well Nourished, No Apparent Distress, Conversant and Obese
HEENT: Normocephalic, Atraumatic, Moist Mucous Membranes and Anicteric
Respiratory: Clear to Auscultation
Cardiac: Regular Rhythm and S1/S2
GI: Soft, Nontender, Nondistended and Normal Bowel Sounds
Musculoskeletal: No Clubbing, No Cyanosis, Edema, Right Lower Extrem and Edema, Left Lower Extrem
Skin: Other (Chronic venous stasis changes present over bilateral lower extremities)
Neuro: Awake and AO x 3
Psych: Calm
Data Reviewed
-
Labs: Labs Reviewed by me and Discussed with Physician
Old Records: Reviewed
[2024-11-05 12:48] LABS: Glucose - Point of Care 154 mg/dl (70-99)
[2024-11-05 15:00] VITALS: BP 130/76
[2024-11-05 16:42] LABS: Glucose - Point of Care 189 mg/dl (70-99)
[2024-11-05] MEDS: FOLVITE 1 MG PO (17:34)
[2024-11-05 21:45] LABS: Glucose - Point of Care 105 mg/dl (70-99)
[2024-11-05] MEDS: LANTUS 0.25 UNITS SC (22:14)
[2024-11-05 23:30] VITALS: BP 136/64
[2024-11-06 06:00] VITALS: BMI 39.4
[2024-11-06 07:30] VITALS: BP 119/72
--- NOTE | 2024-11-06 07:33 | PN.DE.MGMTRT ---
Insulin Management
- -
11/06/2024 Diabetes Management Consult Follow up
Patient admitted 10/24 with c/o feeling dizzy, groin and mouth pain - severe intertrigo, esophageal candidiasis. PMH diabetes, psoriatic arthritis, HTN, pain redness in groin ~ 6 months. Prior to admission was taking metformin 1000 mg BID,
glimepiride 4 mg BID. A1C 10.6%, cr 1, eGFR > 60.
Patient is awake alert and oriented able to discuss diabetes care. Has had diabetes ~ 20 years, follows with primary doctor for diabetes care. Has glucose monitor but states strips are too expensive. Recommended obtaining Reli-On glucose monitor
from [facility] as strips are much less expensive.
Discussed with patient importance of glucose control, will need to start insulin, he is receptive.
Received AC novolog 8 units yesterday with low corrective insulin, glucose improved to 105 to 189, 105 @ HS. Fasting glucose 167. Will continue lantus 25 units @ hs with novolog 8 units ac.
Discussed with nurse.
Will follow
Diabetes History
- -
Type of Diabetes: 2 requiring insulin
Pre-Admission Diabetes Regimen
Lab Results
Hemoglobin A1c 10.6 % (4.0-5.6) H 10/25/24 07:55
Insulin Pump Settings
IP Diabetes Regimen
11/05/24 11/05/24 11/05/24
07:45 12:46 16:41
POC Glucose 168 H 154 H 189 H
11/05/24
21:44
POC Glucose 105 H
Patient Education
[2024-11-06 07:55] LABS: Glucose - Point of Care 167 mg/dl (70-99)
[2024-11-06] MEDS: ELIQUIS 10 MG PO (08:00)
[2024-11-06] MEDS: NOVOLOG FLEXPEN 8 UNITS SC ×2 (08:00→12:19)
[2024-11-06] MEDS: NOVOLOG FLEXPEN-LOW RESISTANCE 1 UNITS SC ×2 (08:00→12:20)
[2024-11-06] MEDS: FOLVITE 1 MG PO (08:06)
[2024-11-06] MEDS: PROTONIX 40 MG PO (08:06)
[2024-11-06] MEDS: DELTASONE 5 MG PO (08:06)
[2024-11-06] MEDS: MYCELEX TROCHE 10 MG PO ×3 (08:06→14:36)
[2024-11-06 09:29] VITALS: BP 138/84; PULSE 74; O2SAT 98
[2024-11-06 09:55] LABS: Hematocrit 34.1 % (39.0-52.0); Hemoglobin 11.4 g/dL (13.0-18.0); Mean Corp Hgb Conc. 33.4 g/dL (33.0-37.0); Mean Corpuscular Volume 112.2 fL (80.0-94.0); Platelet Count 224 10^3/uL (130-400); Red Cell Dist. Width 15.1 % (11.5-14.5)
--- NOTE | 2024-11-06 09:55 | W.PN.HOSP.TC ---
Addendum entered and electronically signed by Janine Guillermo MD 11/06/24 13:08:
I saw and evaluated the patient independently. I reviewed the resident�s note and agree with findings and plan as documented by Dr. Bronson.
GENERAL: well developed, well nourished, obese male in no apparent distress
HEENT: NC/AT--oral thrush and soft palate ulcer resolved
HEART: regular rate and rhythm, +S1, +S2
LUNGS : clear to auscultation bilaterally
ABDOM: soft, nontender, nondistended, + bowel sounds
EXT: no cyanosis, clubbing--edema to left lower leg
SKIN: intertrigo resolved
Intertrigo, tinea corporis//Oral thrush - likely due to uncontrolled diabetes mellitus--resolved--orthostasis likely from fluconazole--cosyntropin stim test done in relation to low baseline cortisol is indeterminate due to chronic ongoing prednisone
use--fluconazole stopped
Orthostatic hypotension- s/p IVF, Fluconazole discontinued- Losartan was decreased from 50 Mg to 25 Mg, and eventually discontinued due to persistent orthostatic hypotension-- Following orthostatic vital signs--is on midodrine
Acute LLE DVT-- History of pulmonary embolism- US showed extensive left lower extremity DVT--Eliquis 10 mg BID x 1 week followed by 5 mg BID thereafter
Incidental finding of mitral annular calcification with mobile components- Echo: Mitral annular calcification with mobile components, suspecting vegetation due to calcification.� Patient does not have any systemic symptoms, highly doubt patient has
infectious mitral valve vegetation- Serial blood cultures are negative, infectious diseases signed off.
Diabetes mellitus-type II uncontrolled with HbA1c 10.6- 17 carb diet ordered- DM VIDEO RECORDER MECHANIC consult: Given HS Lantus to 20 units and continue AC NovoLog 8 units with low corrective insulin.
Psoriatic arthritis--Received Tremfya a month ago, no current symptoms of joint pain-Continue low-dose prednisone
Essential hypertension- Discontinue losartan 25 Mg p.o. due to persistent symptomatic orthostatic hypotension.
Obesity-due to excess calories- Affects all aspects of care- Advised patient to increase activity and limit calorie intake
History of pulmonary embolism- IVC filter in place
Medically cleared for discharge.
Full code
Original Note:
Today's Communication/Plan
-
Medically cleared for discharge, awaiting SNF placement to [facility]. Case management aware.
Assessment / Plan
Assessment / Plan
64 year old male with PMH of T2DM, psoriatic arthritis, pulmonary embolism, and hypertension who presented with bilateral groin rash x 6 months and dysphagia x last week. No fever, chills, nausea, vomiting, diarrhea, urinary complaints. He has
poorly controlled diabetes despite being compliant to metformin and glimepiride at home. He has been on etanercept for psoriatic arthritis for the past 10 years, and last loading dose of Tremfya in August 2024. Also takes low dose prednisone.
Assessment/plan:
# Intertrigo, tinea corporis
# Oral thrush - likely due to uncontrolled diabetes mellitus
- Fluconazole discontinued-suspect low BP issues due to adrenal insufficiency from fluconazole.
- Fasting cortisol low, ACTH stimulation test not reliable as patient is on prednisone; recommend endocrine outpatient follow-up.
- Continue wound care, Mycelex lozenges and Magic mouthwash
- HIV negative
- QTc within normal limits
# Orthostatic hypotension
- s/p IVF, Fluconazole discontinued
- Losartan was decreased from 50 Mg to 25 Mg, and eventually discontinued due to persistent orthostatic hypotension.
- Continue midodrine drip
- Recommended continuation with physical therapy, increase PO intake, careful when standing up from sitting position
- Following orthostatic vital signs
# Acute LLE DVT:
- History of pulmonary embolism
- DVU showed extensive left lower extremity DVT.
- Continue Eliquis 10 mg PO BID until 11/08/24, switch to 5 mg PO BID indefinitely thereafter.
# Incidental finding of mitral annular calcification with mobile components.
- Echo: Mitral annular calcification with mobile components, suspecting vegetation due to calcification.� Patient does not have any systemic symptoms, highly doubt patient has infectious mitral valve vegetation.
- Serial blood cultures are negative, infectious diseases signed off.
# Diabetes mellitus-type II
- HbA1c 10.6%
- 17 carb diet ordered
- DM VIDEO RECORDER MECHANIC consult: Given HS Lantus to 20 units and continue AC NovoLog 8 units with low corrective insulin.
# Psoriatic arthritis
-Received Tremfya a month ago, no current symptoms of joint pain
-Continue low-dose prednisone
# Primary hypertension
- Discontinue losartan 25 Mg p.o. due to persistent symptomatic orthostatic hypotension.
# Obesity-due to excess calories
- Affects all aspects of care
- Advised patient to increase activity and limit calorie intake
# History of pulmonary embolism
- IVC filter in place
Medically cleared for discharge.
Full code
PCP Dr. Harpreet Kelsey
Anticipated Discharge: Today
Subjective/Interval History
-
Date of Service: November 06, 2024
No new complaints. Leg pain decreased, but swelling still present. Patient feels well.
Objective Data
-
Labs:
Laboratory Results
11/06/24
09:02
WBC 8.3
Hgb 11.4 L
Hct 34.1 L
Plt Count 224 D
Sodium Pending
Potassium Pending
Chloride Pending
Carbon Dioxide Pending
BUN Pending
Creatinine Pending
Glucose Pending
Calcium Pending
Vital Signs:
Vital Signs
Temp Pulse Resp BP Pulse Ox
98.0 F 75 18 119/72 95
11/06/24 07:30 11/06/24 07:30 11/06/24 07:30 11/06/24 07:30 11/06/24 07:30
I&O
11/05/24 11/06/24 11/07/24
06:59 06:59 06:59
Intake Total 1200 / 1200 960 / 960
Balance 1200 / 1200 960 / 960
Review of Systems
-
History Source: Patient
Constitutional: Reports No Symptoms
EENT: Reports No Symptoms Reported
Respiratory: Reports No Symptoms
Cardiac: Reports No Symptoms
Abdomen/GI: Reports No Symptoms
Breast: Reports No Symptoms
Genitourinary: Reports No Symptoms
Musculoskeletal: Reports No Symptoms
Skin: Reports No Symptoms
Neuro: Reports No Symptoms
Endocrine: Reports No Symptoms
Hematologic / Lymphatic: Reports No Symptoms
Allergy / Immunology: Reports No Symptoms
Physical Exam
-
General: Well Developed, Well Nourished, No Apparent Distress, Comfortable and Conversant
HEENT: Normocephalic, Atraumatic, Moist Mucous Membranes and Anicteric
Respiratory: Clear to Auscultation
Cardiac: Regular Rhythm and S1/S2
GI: Soft, Nontender, Nondistended and Normal Bowel Sounds
Musculoskeletal: No Clubbing, No Cyanosis, Edema, Right Lower Extrem and Edema, Left Lower Extrem (L>R)
Skin: Warm and Dry
Neuro: Awake and AO x 3
Psych: Calm
Data Reviewed
-
Labs: Labs Reviewed by me and Discussed with Physician
Old Records: Reviewed
[2024-11-06 10:18] LABS: Blood Urea Nitrogen 24 mg/dl (9-20); Calcium 9.5 mg/dl (8.4-10.2); Carbon Dioxide 27 mmol/L (22-30); Chloride 108 mmol/L (98-107); Estimated Creatinine Clearance 111 ml/min; Glucose 169 mg/dl (70-99); Magnesium 1.8 mg/dl (1.6-2.3); Potassium 4.2 mmol/L (3.5-5.1); Sodium 139 mmol/L (135-145); eGFR > 60.00
--- NOTE | 2024-11-06 10:52 | CM ---
Addendum entered by Raheel Gupta 11/06/24 12:53:
Spoke w/Susi via speakerphone w/ patient. Susi shared cost break down and payment arrangement w/ patient. Patient shared he would like 5 days of therapy, Susi confirmed therapy beginning tomorrow through Wednesday. Patient was agreeable to therapy
and room and board cost. Patient was provided facility's phone number and directions to ask for Cari, instructor business education, to arrange card payment.
Patient agreeable to w/c van transport, understands that it will be a private cost.
Updated hospitalist
[facility]
Report: [phone]

Plan: D/c today to [facility]
Original Note:
Chart reviewed. Spoke w/ Susi/[facility], confirmed patient will private pay for rehab. Per Susi, upfront payment will be needed before patient can admit. Susi will contact the business office to verify payment method or if they
need to verify that patient has the funds in his account. CM will await call back w/ information
Updated patient bedside, patient very patient and pleasant. Patient stated that he doesn't have any checks and can make a debit card payment if that is sufficient. Patient also thinking he may want to pay for 7 days instead of 10 as he walked today
and felt okay.
Plan: [facility]
[2024-11-06 12:03] LABS: Glucose - Point of Care 174 mg/dl (70-99)
[2024-11-06] MEDS: TYLENOL 650 MG PO (14:36)
[2024-11-06 14:44] VITALS: BP 131/72
== END 2024-11-06 16:00 | DRG 638 ==
LOC: 4 WEST ACU 20:18
PROVIDERS: Emergency Medicine; Internal Medicine; Physician Assistant; ADMITTING PHYSICIAN Hospitalist; ATTENDING PHYSICIAN Internal Medicine; CONSULT PHYSICIAN Internal Medicine Infectious Disease; EMERGENCY PHYSICIAN Emergency Medicine; FAMILY PHYSICIAN Internal Medicine
DX: E11.65 Type 2 diabetes mellitus with hyperglycemia (principal); B37.0 Candidal stomatitis; I82.412 Acute embolism and thrombosis of left femoral vein; I82.432 Acute embolism and thrombosis of left popliteal vein; I82.452 Acute embolism and thrombosis of left peroneal vein; I82.442 Acute embolism and thrombosis of left tibial vein; D84.821 Immunodeficiency due to drugs; B37.81 Candidal esophagitis; E27.3 Drug-induced adrenocortical insufficiency; B35.4 Tinea corporis; R42 Dizziness and giddiness; L30.4 Erythema intertrigo; B37.2 Candidiasis of skin and nail; R26.2 Difficulty in walking, not elsewhere classified; E66.09 Other obesity due to excess calories; F19.11 Other psychoactive substance abuse, in remission; I95.1 Orthostatic hypotension; I34.81 Nonrheumatic mitral (valve) annulus calcification; L40.50 Arthropathic psoriasis, unspecified; I87.2 Venous insufficiency (chronic) (peripheral); I10 Essential (primary) hypertension; E86.0 Dehydration; T37.8X5A Adverse effect of other specified systemic anti-infectives and antiparasitics, initial encounter; Y92.9 Unspecified place or not applicable; Z79.52 Long term (current) use of systemic steroids; Z79.01 Long term (current) use of anticoagulants; Z79.85 Long-term (current) use of injectable non-insulin antidiabetic drugs; Z79.84 Long term (current) use of oral hypoglycemic drugs; Z79.631 Long term (current) use of antimetabolite agent; Z86.711 Personal history of pulmonary embolism; Z87.891 Personal history of nicotine dependence; Z88.0 Allergy status to penicillin; Z88.8 Allergy status to other drugs, medicaments and biological substances; Z91.018 Allergy to other foods; Z95.828 Presence of other vascular implants and grafts; Z56.0 Unemployment, unspecified; Z68.37 Body mass index [BMI] 37.0-37.9, adult; Z79.60 Long term (current) use of unspecified immunomodulators and immunosuppressants
CPT/HCPCS: 71046; 80048; 80053; 82533; 82607; 82746; 82962; 83036; 83735; 84443; 84484; 85025; 85027; 86803; 87040; 87070; 87389; 87880; 93005; 93306; 93970; 96361; 96374; 97116; 97162; 97530; 99285